=== PATIENT | male | born 1950 | race African-American/Black ===

== ENCOUNTER 2016-11-27 11:17 | Outpatient (CLI) | payer OTHER ==
[~2016-11-27] VITALS: Ht 177.8 cm; Wt 62.7 kg
--- NOTE | ~2016-11-27 | HEMODYNAMI ---
PATIENT:MOHINI TAVERAS MEDICAL RECORD: [id number] : 50 LOCATION:[facility] ADMISSION DATE: 11/27/16 Generatedon:11/27/201614:38 Patient name: MOHINI TAVERAS Patient #: [id number] SSN: [id number] : 1950 Date of study: 11/27/2016 Page: Of Hemodynamic Procedure Report Patient Data Patient Demographics Procedure consent was obtained First Name: MOHINI Gender: Male Last Name: DARCY : 1950 Middle Initial: YAMILETH Age: 66 year(s) Patient #: [id number] Race: Black SSN: [id number] Additional ID: [id number] Contact details [address]: [address] [place] [address] State: [place] City: [place] Zip code: [address] Past Medical History Allergies: No known allergies Admission Admission Data Admission Date: 11/27/2016 Admission Time: 11:17 Admit Source: Other Lab Results Lab Result Date: 11/27/2016 Lab Result Time: 12:00 Biochemistry Name Units Result Min Max BUN mg/dl 11 --(-*--)-- 7 18 Creatinine mg/dl 0.9 --(-*--)-- 0.6 1.3 CBC Name Units Result Min Max Hematocrit % 44.9 --(*---)-- 42 54 Hemoglobin g/dl 15.2 --(-*--)-- 13.5 17.5 Procedure Procedure Types Cath Procedure PCI Procedure Coronary Stent Initial Miscellaneous Procedures Moderate Sedation up to 15 minutes Procedure Description Procedure Date Procedure Date: 11/27/2016 Procedure Start Time: 14:22 Procedure End Time: 14:37 Procedure Staff Name Function Geovanny Mcintosh MD Performing Physician [place] García RT Scrub [place] RN Nurse Bashir Jacques RT Monitor Nathan Kignsley RN Security Guard Dispatcher Procedure Data Cath Procedure Fluoroscopy Diagnostic fluoroscopy Total fluoroscopy Time: 3.4 time: 3.4 min min Diagnostic fluoroscopy Total fluoroscopy dose: 182 dose: 182 mGy mGy Contrast Material Contrast Material Type Amount (ml) Isovue 300 56 Entry Location Entry Primary Successful Side Size Upsize Upsize Entry Closure Paige ccessful Closure Location (Fr) 1 (Fr) 2 (Fr) Remarks Device Remarks Radial Right 6 Fr Mechanical artery Short Compression Estimated blood loss: 10 ml Procedure Complications No complications Procedure Medications Medication Administration Route Dosage Oxygen NC 2 l/min Heparin Flush Bag added to field 2 bags (1000units/500ml NS) Plavix P.O. 75 mg 0.9% NaCl I.V. 100 ml/hr Radial Cocktail added to field 1 syringe (Verapomil 2mg/Nitro 400mcg/Heparin 1500units) Fentanyl I.V. 50 mcg Versed I.V. 1 mg Fentanyl I.V. 50 mcg Versed I.V. 1 mg Radial Cocktail I.A. 1 syringe (Verapomil 2mg/Nitro 400mcg/Heparin 1500units) Heparin Bolus I.V. 6000 units Hemodynamics Rest HGB: 15.2 (g/dl) Heart Rate: 67 (bpm) Snapshots Pre Cath Intra NCS Post Cath Vital Signs Time Heart Resp SPO2 etCO2 [id number] NIBP (mmHg) Rhythm Pain Sedation Rate (ipm) (%) (mmHg) (mmHg) Status Level (bpm) 14:07:28 65 17 100 0 0 129/84(105) NSR 0 (11) 10(A) , No pain 14:11:34 65 18 100 0 0 106/84(90) NSR 0 (11) 10(A) , No pain 14:15:36 62 17 99 0 0 110/74(86) NSR 0 (11) 10(A) , No pain 14:19:39 69 18 99 0 0 101/74(89) NSR 0 (11) 10(A) , No pain 14:23:39 68 17 99 0 0 97/74(87) NSR 0 (11) 9(A) , No pain 14:27:41 73 16 97 0 0 93/63(75) NSR 0 (11) 9(A) , No pain 14:31:42 70 17 97 0 0 97/57(77) NSR 0 (11) 9(A) , No pain 14:35:42 68 17 98 0 0 104/64(84) NSR 0 (11) 9(A) , No pain Medications Time Medication Route Dose Verified Delivered Reason Note s Effectiveness by by 14:02:43 Oxygen NC 2 l/min Nathan Evans Per physician Sancho Kingsley RN RN 14:02:52 Heparin Flush added 2 bags Nathan Evans used for Bag to Sancho Kingsley RN procedure (1000units/500ml field RN NS) 14:03:05 Plavix P.O. 75 mg Nathan Evans for Sancho Kingsley RN antiplatelet RN therapy 14:03:19 0.9% NaCl I.V. 100 Nathan Nathan Per physician ml/hr Sancho Kingsley RN RN 14:03:30 Radial Cocktail added 1 Nathan Evans used for (Verapomil to syringe Sancho Kingsley RN procedure 2mg/Nitro field RN 400mcg/Heparin 1500units) 14:20:26 Fentanyl I.V. 50 mcg Nathan Evans for sedation Sancho Kingsley RN RN 14:20:33 Versed I.V. 1 mg Nathan Evans for sedation Sancho Kingsley RN RN 14:22:47 Fentanyl I.V. 50 mcg Nathan Evans for sedation Sancho Kingsley RN RN 14:22:52 Versed I.V. 1 mg Nathan Evans for sedation Sancho Kingsley RN RN 14:24:13 Radial Cocktail I.A. 1 Nathan Geovanny for (Verapomil syringe Sancho Mcintosh MD vasodilation 2mg/Nitro RN 400mcg/Heparin 1500units) 14:26:16 Heparin Bolus I.V. 6000 Nathan Evans for units Sancho Kingsley RN anticoagulation driver recruiter Log Time Note 13:40:15 Nathan Kingsley RN sent for patient. Start room use. 13:49:44 Informed consent obtained and on chart 13:50:01 Admit Source: Other 13:50:21 Time tracking: Regular hours 13:50:25 Plan of Care:Hemodynamics will remain stable., Cardiac rhythm will remain stable., Comfort level will be maintained., Respiratory function will remain adequate., Patient/ family verbilizes understanding of procedure., Procedure tolerated without complication., Recovers from procedure without complications.. 13:50:30 H&P Date Dictated: 11/27/2016 Within 30 days and on chart., H&P Addendum completed by physician on day of procedure. (MUST COMPLETE FOR ALL OUTPATIENTS). 13:51:45 Lab Result : Creatinine 0.9 mg/dl ::45 Lab Result : BUN 11 mg/dl ::45 Lab Result : Hemoglobin 15.2 g/dl ::45 Lab Result : Hematocrit 44.9 % 13:51:47 Lab results completed and on chart. 13:51:54 Patient received from Pre/Post Procedure Room to CCL 1 Alert and oriented. Tansferred to table in Supine position. 13:51:55 Warm blankets applied, and juan hugger turned on for patient comfort. 13:51:56 Correct patient and procedure confirmed by team. 13:51:57 ECG and BP/O2 sat monitors applied to patient. 13:52:00 Pre-procedure instructions explained to patient. 13:52:00 Pre-op teaching completed and patient verbalized understanding. 13:52:01 Family in waiting room. 13:52:03 Patient NPO since Midnight. 13:52:09 Patient allergic to No known allergies 13:52:11 Is the patient allergic to Iodine/contrast media? No. 14:02:43 Oxygen 2 l/min NC was administered by Nathan Kingsley RN; Per physician; 14:02:52 Heparin Flush Bag (1000units/500ml NS) 2 bags added to field was administered by Nathan Kingsley RN; used for procedure; 14:03:05 Plavix 75 mg P.O. was administered by Nathan Kingsley RN; for antiplatelet therapy; 14:03:19 0.9% NaCl 100 ml/hr I.V. was administered by Nathan Kingsley RN; Per physician; 14:03:30 Radial Cocktail (Verapomil 2mg/Nitro 400mcg/Heparin 1500units) 1 syringe added to field was administered by Nathan Kingsley RN; used for procedure; 14:04:22 Is patient on blood thinner?Yes 14:04:26 ACC The patient was administered the following blood thiners within the last 24 hours: ACCPlavix 14:04:55 Patient diabetic? No. 14:04:57 Previous problem with sedation/anesthesia? No ? 14:04:59 Snore? Yes 14:05:00 Sleep apnea? No 14:05:00 Deviated septum? No 14:05:01 Opens mouth fully? Yes 14:05:02 Sticks out tongue? Yes 14:05:03 Airway obstruction? No ? 14:05:05 Dentures? No ? 14:05:08 Modified Marquez's test Ulnar < 7 seconds 14:05:11 Patient pain scale 0/10 ?. 14:05:21 IV patent on arrival in left wrist with 0.9% NaCl at [facility]. 14:05:29 Right Radial & Right Groin area was prepped with chlora-prep and draped in sterile fashion 14:05:30 Alarms reviewed by R. N. 14:05:30 Sharps counted by scrub and verified by R.N. 14:05:33 Use device set Radial PCI 14:05:34 St Colton 260cm J .035 wire opened to sterile field. 14:05:35 MBrace Wrist Support opened to sterile field. 14:05:35 Tegaderm 4 x 4 opened to sterile field. 14:05:36 Acist Manifold opened to sterile field. 14:05:37 Acist Syringe opened to sterile field. 14:05:38 Acist Hand Control opened to sterile field. 14:05:38 Bag Decanter opened to sterile field. 14:05:39 Medline Cath Pack opened to sterile field. 14:05:39 Merit BasixCompak Inflation Kit opened to sterile field. 14:05:39 Terumo 6Fr Slender Glidesheath opened to sterile field. 14:06:25 Vital chart was started 14:07:01 Baseline sample Acquired. 14:07:08 Rhythm: sinus rhythm 14:14:14 Zero performed for pressure channel P1 14:14:22 Zero performed for pressure channel P1 14:14:28 Zero performed for pressure channel P1 14:18:46 Physician arrived 14:18:47 --------ALL STOP TIME OUT------ 14:18:47 Final Timeout: patient, procedure, and site verified with staff and physician. All members of the team are in agreement. 14:18:49 Right Radial & Right Groin site verified by team. 14:18:52 Physical assessment completed. ASA score P 2 - A patient with mild systemic disease as per Geovanny Mcintosh MD. 14:18:55 Sedation plan: IV Moderate Sedation Versed, Fentanyl 14:20:26 Fentanyl 50 mcg I.V. was administered by Nathan Kingsley RN; for sedation; 14:20:33 Versed 1 mg I.V. was administered by Nathan Kingsley RN; for sedation; 14::22 Procedure started. 14:: Full Disclosure recording started 14:22:38 Local anesthetic to right radial artery with Lidocaine 2% by Geovanny Mcintosh MD.INITIAL ACCESS ONLY 14::47 Fentanyl 50 mcg I.V. was administered by Nathan Kingsely RN; for sedation; 14::52 Versed 1 mg I.V. was administered by Nathan Kingsley RN; for sedation; 14:23:46 A 6 Fr Short sheath was inserted into the Right Radial artery 14:24:13 Radial Cocktail (Verapomil 2mg/Nitro 400mcg/Heparin 1500units) 1 syringe I.A. was administered by Geovanny Mcintosh MD; for vasodilation; 14:24:20 Cordis 6FR XBLAD 3.5 guide catheter opened to sterile field. 14:25:04 6 Fr xblad 3.5 guide catheter was inserted over the wire 14:25:52 LCA angiography performed. 14:26:16 Heparin Bolus 6000 units I.V. was administered by Nathan Kingsley RN; for anticoagulation; 14:29:21 BMW wire advanced. 14:29:39 Wire advanced across lesion. 14:32:29 Inflation Number: 1 A Clean Filtration Technologytronic Integrity 3.0 X 26 stent was prepped and advanced across the Prox LAD. The stent was deployed at 14 ELENO for 0:10 (min:sec). 14:33:09 Stent catheter was removed intact over wire. 14:33:10 Wire removed. 14:33:10 Guide catheter removed. 14:33:17 Terumo TR Band Standard opened to sterile field. 14:33:57 Sheath removed intact; hemostasis achieved with Mechanical Compression to the Right Radial artery. 14:33:59 Procedure ended.(Physican Out) 14:34:08 Fluoroscopy time 03.40 minutes. 14:34:12 Flurop Dose total: 182 14:34:12 Fluoroscopy dose: 182 mGy 14:34:15 Contrast amount:Isovue 300 56ml. 14:34:16 Sharps counted by scrub and verified by R.N. 14:34:19 TR band inflated with 12cc of air. 14:34:20 Insertion/operative site no bleeding no hematoma. 14:34:28 Post right radial artery:stable, soft, clean and dry 14:34:29 Post Procedure Pulses reassessed and unchanged 14:34:31 Post-procedure physical assessment completed. ASA score P 2 - A patient with mild systemic disease as per Geovanny Mcintosh MD. 14:34:33 Post procedure rhythm: unchanged. 14:34:36 Estimated blood loss: 10 ml 14:34:38 Post procedure instruction explained to patient.Patient verbalizes understanding. 14:34:38 Patient needs reinforcement of post procedure teaching. 14:36:07 Webb BMW [place] 2 J-tip 300cm 0.014 guide wir opened to sterile field. 14:37:02 Procedure type changed to Cath procedure, PCI procedure, Coronary Stent Initial, Miscellaneous Procedures, Moderate Sedation up to 15 minutes 14:37:27 Procedure and supply charges have been captured, reviewed, submitted and are correct. 14:37:32 Procedure Complication : No complications 14:37:35 Vital chart was stopped 14:37:35 See physician's report for complete and final results. 14:37:36 Report given to Pre/Post Procedure Room. 14:37:38 Patient transfered to Pre/Post Procedure Room with Stretcher. 14:37:40 Procedure ended. 14:37:40 Full Disclosure recording stopped 14:38:06 End room use (Document Last) Intervention Summary Intervention Notes Time ActionType Lesion and Equipment Action# Pressure Duration Attributes Used 14:32:29 Place stent Prox LAD Medtronic 1 14 00:10 Integrity 3.0 X 26 stent Device Usage Item Name Manufacture Quantity Catalog Hospital Part Current Minimal Lot# / Number Charge Number Stock Stock Serial# Code St Colton St Colton 1 [id number] [id number] 127777 493958 30 260cm J .035 wire MBrace Advanced 1 140-0250-00 105169 35372 677814 5 Wrist Vascular Support Dynamics Tegaderm 4 3M 1 1626W 445492 291136 998656 5 x 4 Acist Acist 1 36269 782299 876726 048651 5 Manifold Medical Systems Inc Acist Acist 1 19337 714232 766873 986100 20 Syringe Medical Systems Inc Acist Hand Acist 1 00181 488359 776853 970421 5 Control Medical Systems Inc Bag Microtek 1 2001S 691405 93154 598484 5 Decanter Medical Inc. Medline Cardinal 1 [id number] 547879 35967 045887 5 [facility] Privileged World [employer] Club [facility] Merit 1 [id number] 879070 537028 226188 15 BasixCompak Medical Inflation Kit Terumo 6Fr Terumo 1 [id number] 478997 670839 535235 40 Slender Glidesheath Cordis 6FR Cardinal 1 [id number] 193120 462033 404120 10 XBLAD 3.5 Health guide catheter Medtronic Medtronic 1 [id number] 482120 033731 3 [id number] Integrity 3.0 X 26 stent Terumo TR Terumo 1 [id number] 633133 219012 822198 40 Band Standard Webb BMW Webb 1 [id number] 144429 575652 574308 5 [place] 2 Vascular J-tip 300cm 0.014 guide wir Signature Audit Corn Stage Time Signature Unsigned Intra-Procedure 11/27/2016 Bashir Jacques 2:38:26 PM RT(R) Signatures Monitor : Bashir Jacques RT Signature : Date : Time : [facility] [address] [place] [address]
--- NOTE | ~2016-11-27 | OP ---
PATIENT NAME: MOHINI TAVERAS MEDICAL RECORD: [id number] :50 LOCATION:D.CAT ADMISSION DATE: SURGEON: DEEPAK ALBRECHT M.D. DATE OF OPERATION: 11/27/2016 REFERRING PHYSICIAN: Dr. Boston Andres. PROCEDURES PERFORMED: 1. PTCA and stent placed to the LAD. INDICATION: A 66-year-old gentleman recently presents with angina. He underwent stenting of the right coronary artery. He returns today for completion of staged procedure to the LAD. EQUIPMENT USED: A 6-Ecuadorean XB LAD guide, BMW guidewire, 3.0 x 26 mm Integrity stent. DESCRIPTION OF INTERVENTION: A 6-Ecuadorean sheath was inserted in retrograde fashion in the right radial artery. Next, 100 units per kilogram of heparin was infused. A 6-Ecuadorean XB LAD guide was advanced and engaged in left main coronary artery. Injections revealed an ulcerated 90% stenosis in the mid LAD. At this point, a BMW guide wire was placed in the distal vessel. A 3.0 x 26 mm Integrity stent was placed across the stenosis and deployed at 14 atmospheres. Injection reveals stent to be widely patent with 0% residual stenosis. There is marked improvement in distal flow. At this point, the wire and guide were removed. IMPRESSION: Successful percutaneous transluminal coronary angioplasty and stent to the LAD with 0% residual stenosis. TRANSINT:[id number] Voice Confirmation ID: [id number] DOCUMENT ID: [id number] DEEPAK ALBRECHT M.D. CC: [id number] DICTATION DATE: 11/27/16 1439 DIRECTOR VISUAL: 11/27/16 2139 [facility] CLI 11/27/16 [place] [id number] [place] [id number]
[~2016-11-27 11:17] MED LIST: BAYER CHEWABLE81 MG PO; CATAPRES0.1 MG PO; FLOMAX0.4 MG PO; HALCION0.25 MG PO; LIPITOR10 MG PO; PLAVIX75 MG PO; PROAIR HFA8.5 GM INH; PROSCAR5 MG PO; PROTONIX40 MG PO; ULTRAM50 MG PO
[2016-11-27 11:48] VITALS: BP 131/85; Ht 177.8 cm; Wt 62.7 kg
[2016-11-27 12:44] LABS: BASOPHILS 0.7 % (0-2); EOSINOPHILS 1.6 % (0-7); HEMATOCRIT 44.9 % (42.0-54.0); HEMOGLOBIN 15.2 g/dL (13.5-17.5); IMMATURE GRANULOCYTES 0.2 % (0-5); LYMPHOCYTES 27.8 % (15-50); MCH 32.6 pg (26.0-34.0); MCHC 33.9 g/dL (31.0-37.0); MCV 96.4 fL (80.0-100.0); MEAN PLATELET VOLUME 10.3 fL (7.4-10.4); MONOCYTES 10.8 % (2-11); NEUTROPHILS 58.9 % (40-80); PLATELET COUNT 356 10x3/uL (130-400); RBC 4.66 10x6/uL (4.20-6.10); RDW 13.8 % (11.5-14.5); WBC 8.2 10x3/uL (4.8-10.8)
[2016-11-27 12:56] LABS: CALC OSMOLALITY 278 mosm/kg (275-300); CARBON DIOXIDE 24.4 mmol/L (21.0-32.0); CHLORIDE - SERUM 108 mmol/L (98-107); CREATININE - SERUM 0.9 mg/dL (0.6-1.3); GLUCOSE 79 mg/dL (74-106); POTASSIUM - SERUM 3.9 mmol/L (3.5-5.1); SODIUM 141 mmol/L (136-145); UREA NITROGEN 11 mg/dL (7-18); eGFR NON AFRICAN AMERICAN 90 mL/min (90-120)
--- NOTE | 2016-11-27 15:00 | NUR ---
TR BAND TO RIGHT WRIST- CDI NO BLEEDING AT SITE
--- NOTE | 2016-11-27 15:33 | NUR ---
CONTINUES TO REST, NO CHANGE IN RIGHT WRIST
--- NOTE | 2016-11-27 18:05 | NUR ---
2CC AIR OUT OF TR BAND- NO BLEEDING. RIGHT WRIST VERY TENDER
--- NOTE | 2016-11-27 18:20 | NUR ---
3CC AIR OUT OF TR BAND, NO HEMATOMA OR BLEEDING AT SITE, NO CHANGES
--- NOTE | 2016-11-27 18:50 | NUR ---
TR BAND OFF, BANDAID APPLIED, CONTINUES TO BE VERY TENDER- INSTRUCTED TO CALL DR ALBRECHT'S OFFICE IN THE MORNING IF NOT BETTER. UNDERSTOOD. IV D'C WITH CATH TIP INTACT, WRITTEN AND VERBAL INSTRUCTIONS GIVEN TO PT AND . D'C HOME
== END 2016-11-27 19:00 | disposition home or self-care (01) ==
LOC: D.CATH 11:17
PROVIDERS: Internal Medicine Cardiovascular Disease
DX: I25.119 Atherosclerotic heart disease of native coronary artery with unspecified angina pectoris (principal); Z95.5 Presence of coronary angioplasty implant and graft; Z01.812 Encounter for preprocedural laboratory examination

== ENCOUNTER → 2017-11-01 12:39 | Outpatient (CLI) | payer MEDICARE ==
[2016-11-27 11:48] VITALS: BMI 19.8
== END | disposition home or self-care (01) ==
LOC: D.CT 12:39
DX: R10.9 Unspecified abdominal pain (principal)

== ENCOUNTER → 2017-11-25 07:36 | Outpatient (CLI) | payer MEDICARE ==
[2016-11-27 11:48] VITALS: BMI 19.8
== END | disposition home or self-care (01) ==
LOC: D.US 11-22 08:30
DX: R10.9 Unspecified abdominal pain (principal)

== ENCOUNTER → 2017-12-16 08:46 | Outpatient (CLI) | payer MEDICARE ==
[2016-11-27 11:48] VITALS: BMI 19.8
== END | disposition home or self-care (01) ==
LOC: D.NM 12-12 08:30
DX: K83.8 Other specified diseases of biliary tract (principal)

== ENCOUNTER 2018-09-26 11:34 | Emergency (ER) | payer MEDICARE ==
[~2018-09-26] VITALS: Ht 177.8 cm; Wt 62.7 kg
[2018-09-26 11:39] VITALS: Ht 177.8 cm; Wt 62.7 kg
[2018-09-26] MEDS ORDERED: MIRAPEX0.25 MG PO (11:43)
[2018-09-26] MEDS ORDERED: AMBIEN10 MG PO (11:43)
[2018-09-26] MEDS ORDERED: MYSOLINE 50 MG50 MG PO (11:43)
[2018-09-26] MEDS ORDERED: IMITREX100 MG PO (11:44)
[2018-09-26] MEDS ORDERED: BENADRYL25 MG PO (11:44)
[2018-09-26] MEDS ORDERED: NIASPAN500 MG PO (11:45)
[2018-09-26] MEDS ORDERED: FERROUS SULFAT325 MG PO (11:45)
[2018-09-26] MEDS ORDERED: NEURONTIN800 MG PO (11:45)
[2018-09-26] MEDS ORDERED: FOLBIC RF TABL1 EACH PO (11:46)
[2018-09-26] MEDS ORDERED: MAGNESIUM OXID250 MG PO (11:46)
[2018-09-26] MEDS ORDERED: GALZIN50 MG PO (11:46)
[2018-09-26] MEDS ORDERED: VITAMIN E600 UNIT PO (11:47)
[2018-09-26] MEDS ORDERED: ASCORBIC ACID500 MG PO (11:47)
[2018-09-26] MEDS ORDERED: CENTRUM MEN'S1 EACH PO (11:47)
[2018-09-26 12:11] LABS: BASOPHILS 0.5 % (0-2); EOSINOPHILS 0.5 % (0-7); HEMATOCRIT 43.2 % (42.0-54.0); HEMOGLOBIN 15.2 g/dL (13.5-17.5); IMMATURE GRANULOCYTES 0.4 % (0-5); LYMPHOCYTES 14.8 % (15-50); MCH 32.3 pg (26.0-34.0); MCHC 35.2 g/dL (31.0-37.0); MCV 91.9 fL (80.0-100.0); MEAN PLATELET VOLUME 10.5 fL (7.4-10.4); MONOCYTES 8.7 % (2-11); NEUTROPHILS 75.1 % (40-80); PLATELET COUNT 396 10x3/uL (130-400); RDW 13.9 % (11.5-14.5); WBC 9.9 10x3/uL (4.8-10.8)
[2018-09-26 12:53] LABS: ALBUMIN 3.4 g/dL (3.4-5.0); ALKALINE PHOSPHATASE 77 U/L (46-116); ALT (SGPT) 57 U/L (10-68); BILIRUBIN - TOTAL 0.36 mg/dL (0.2-1.3); CALC OSMOLALITY 276 mosm/kg (275-300); CARBON DIOXIDE 28.2 mmol/L (21.0-32.0); CHLORIDE - SERUM 104 mmol/L (98-107); CREATININE - SERUM 0.9 mg/dL (0.6-1.3); GLUCOSE 94 mg/dL (74-106); POTASSIUM - SERUM 3.7 mmol/L (3.5-5.1); PROTEIN - SERUM 6.8 g/dL (6.4-8.2); SODIUM 140 mmol/L (136-145); UREA NITROGEN 7 mg/dL (7-18); eGFR NON AFRICAN AMERICAN 89 mL/min (90-120)
[2018-09-26 13:04] LABS: AMYLASE - SERUM 53 U/L (25-115); CKMB 6.8 U/L (0.0-3.6); CREATINE KINASE 282 UL (21-232); LIPASE 100 U/L (73-393); MAGNESIUM - SERUM 1.8 mg/dL (1.8-2.4)
[2018-09-26 13:06] LABS: TROPONIN-I < 0.017 ng/mL (0.000-0.060)
[2018-09-26 17:50] LABS: APPEARANCE CLEAR (CLEAR); BILIRUBIN NEGATIVE (NEGATIVE); COLOR YELLOW (YELLOW); GLUCOSE NEGATIVE (NEGATIVE); KETONE NEGATIVE (NEGATIVE); NITRITE NEGATIVE (NEGATIVE); PROTEIN NEGATIVE (NEGATIVE); UROBILINOGEN NORMAL (NORMAL)
[2018-09-26] MEDS ORDERED: BENTYL10 MG PO (19:04)
[2018-09-26 19:48] VITALS: BP 132/86
== END 2018-09-26 19:44 | disposition home or self-care (01) ==
LOC: D.ER 11:34
PROVIDERS: Family Medicine
DX: R10.9 Unspecified abdominal pain (principal); I25.10 Atherosclerotic heart disease of native coronary artery without angina pectoris

== ENCOUNTER → 2019-02-13 08:36 | Outpatient (CLI) | payer MEDICARE ==
[2018-09-26 11:39] VITALS: BMI 19.8
[~2019-02-13 08:36] MED LIST changes: +AMBIEN10 MG PO; +ASCORBIC ACID500 MG PO; +BENADRYL25 MG PO; +BENTYL10 MG PO; +CENTRUM MEN'S1 EACH PO; +FERROUS SULFAT325 MG PO; +FOLBIC RF TABL1 EACH PO; +GALZIN50 MG PO; +IMITREX100 MG PO; +MAGNESIUM OXID250 MG PO; +MIRAPEX0.25 MG PO; +MYSOLINE 50 MG50 MG PO; +NEURONTIN800 MG PO; +NIASPAN500 MG PO; +VITAMIN E600 UNIT PO
== END | disposition home or self-care (01) ==
LOC: D.US 02-11 08:30 → D.NM 02-11 09:00 → D.RAD 08:36 → D.US 09:00
PROVIDERS: ATTEND Internal Medicine Gastroenterology
DX: R10.13 Epigastric pain (principal)

== ENCOUNTER 2019-11-14 08:52 | Inpatient (IN) | payer MEDICARE ==
[2019-11-14] VITALS (49 sets, daily range): BP systolic 85–136; BP diastolic 54–96
[~2019-11-14] VITALS: Ht 177.8 cm; Wt 70.0 kg
--- NOTE | ~2019-11-14 | OP ---
PATIENT NAME: MOHINI TAVERAS MEDICAL RECORD: [id number] :50 LOCATION:D.CVI D.CV02 ADMISSION DATE:11/14/19 SURGEON: MO BARROSO MD DATE OF OPERATION: 11/24/2019 SURGEON: Mo Barroso MD ANESTHESIA: General endotracheal, Dr. Real. OPERATION PERFORMED: Repair of false aneurysm, left femoral artery. PREOPERATIVE DIAGNOSIS: False aneurysm, left common femoral artery. POSTOPERATIVE DIAGNOSIS: False aneurysm, left common femoral artery. INDICATION FOR OPERATION: Painful left false aneurysm. FINDINGS AT OPERATION: False aneurysm, left common femoral artery. ESTIMATED BLOOD LOSS: Less than 50 cc. DESCRIPTION OF PROCEDURE: After informed consent, adequate preoperative medication evaluation, the patient was brought to the operating room, placed on the table in the supine position. After induction of general endotracheal anesthesia and application of appropriate monitoring devices, the abdomen, left leg were prepped and draped in a sterile field, utilizing Betadine scrub, alcohol, and Betadine solution. A Betadine-impregnated drape was also used. An oblique incision was made over the inguinal ligament. Dissection carried down the fascia. Hemostasis was maintained with electrocautery. The common femoral artery was surrounded with vessel loops at the level of the inguinal ligament. Dissection was then carried inferiorly and the artery was dissected free of surrounding tissues. After controlling the branches, the false aneurysm was opened and dissected towards the artery. The artery was cleaned anteriorly exposing the puncture site. Digital pressure was held and utilizing a 6-0 Prolene suture, the artery was closed with a primary suture technique. Hemostasis was achieved. The wound was irrigated with copious amounts of antibiotic solution and normal saline. A #10 Markus-Nelson drain was left in the depths of the wound and brought out through the upper thigh. The wound was again irrigated. Instrument count and sponge count were correct times 2. Wound was closed in layers utilizing 2-0 Vicryl on the deep subcutaneous tissue, 2-0 Vicryl on superficial subcutaneous tissue and skin approximated with subcuticular 5-0 Monocryl. The patient had good distal pulses. Sterile dressings were applied. The patient tolerated the procedure well and was transferred to the CV ICU in satisfactory condition. TRANSINT:[id number] Voice Confirmation ID: [id number] DOCUMENT ID: [id number] OPERATIVE REPORT [id number] TAVERASMOHINI MO WEST MD CC: [id number] DICTATION DATE: 11/24/19 1129 SPANISH SPEAKING BABYSITTER: 11/24/19 1732 ADM [place] [id number] [place] [id number]
--- NOTE | ~2019-11-14 | HEMODYNAMI ---
PATIENT:MOHINI TAVERAS MEDICAL RECORD: [id number] : 50 [facility]CV[id number] ADMISSION DATE: 11/14/19 Generatedon:11/14/201910:30 Patient name: MOHINI TAVERAS Patient #: [id number] SSN: [id number] : 1950 Date of study: 11/14/2019 Page: Of Hemodynamic Procedure Report Patient Data Patient Demographics Procedure consent was obtained First Name: MOHINI Gender: Male Last Name: DARCY : 1950 Middle Initial: YAMILETH Age: 69 year(s) Patient #: [id number] Race: Black SSN: [id number] Additional ID: [id number] Contact details [address]: [address] [place] [address] State: [place] City: [place] Zip code: [address] Past Medical History Allergies: No known allergies Admission Admission Data Admission Date: 11/14/2019 Admission Time: 9:34 Room #: [facility] Lab Results Lab Result Date: 11/14/2019 Lab Result Time: 0:00 CBC Name Units Result Min Max Hematocrit % 46.6 --(-*--)-- 42 54 Hemoglobin g/dl 14.9 --(-*--)-- 13.5 17.5 Procedure Procedure Types Cath Procedure Diagnostic Procedure [facility] w/Coronaries PCI Procedure Coronary Stent Coronary Stent Initial Hemochron ACT Test Procedure Description Procedure Date Procedure Date: 11/14/2019 Procedure Start Time: 9:56 Procedure End Time: 10:28 Procedure Staff Name Function Geovanny Mcintosh MD Performing Physician Tosin Michael RN Nurse Tamara Marte RT Scrub Maryann Villalpando RT Monitor Procedure Data Cath Procedure Fluoroscopy Diagnostic fluoroscopy Total fluoroscopy Time: 5 time: 5 min min Diagnostic fluoroscopy Total fluoroscopy dose: 648 dose: 648 mGy mGy Contrast Material Contrast Material Type Amount (ml) Isovue 300 86 Entry Location Entry Primary Successful Side Size Upsize Upsize Entry Closure Succes sful Closure Location (Fr) 1 (Fr) 2 (Fr) Remarks Device Remarks Femoral Right 6 Fr Exoseal artery Short Estimated blood loss: 10 ml Diagnostic catheters Device Type Used For End Catheter Placement MULTIPACK JL 4.0 5Fr Procedure catheter MULTIPACK 3DRC 5Fr Procedure catheter Procedure Complications No complications Procedure Medications Medication Administration Route Dosage 0.9% NaCl I.V. Oxygen 100 Lidocaine 2% added to field 20 Heparin Flush Bag added to field 2 bags (1000units/500ml NS) Diprivan 1% I.V. 40 mcg/kg/min (Propofol) Heparin Bolus I.V. 7500 units Dopamine I.V. drip 5 mcg/kg/min (400mg/250ml D5W) Nitroglycerin IC/IA I.C. 50 mcg Plavix 600 mg Hemodynamics Rest HGB: 14.9 (g/dl) Heart Rate: 93 (bpm) Pressure Samples Time Site Value (mmHg) Purpose Heart Use Rate(bpm) 10:05 LV 77/7,14 Snapshot 48 10:06 LV 75/7,12 Snapshot 62 Gradients Valve Time Site Site Mean SEP/DFP Peak To Heart Use 1 2 (mmHg) (sec/min) Peak Rate (mmHg) (bpm) Aortic 10:06 LV AO 95 Snapshots Pre Cath Intra NCS Post Cath Vital Signs Time Heart Resp SPO2 etCO2 NIBP Rhythm Pain Sedation Rate (ipm) (%) (mmHg) (mmHg) Status Level (bpm) 9:45:30 94 20 99 0 75/51(62) NSR 0 (11) 3(A) , No pain 9:49:32 82 20 98 0 79/56(69) NSR 0 (11) 3(A) , No pain 9:53:36 100 19 98 0 79/54(62) NSR 0 (11) 3(A) , No pain 9:57:42 98 19 99 0 79/52(63) NSR 0 (11) 3(A) , No pain 10:01:53 80 20 100 0 71/44(63) NSR 0 (11) 3(A) , No pain 10:05:59 94 19 100 0 76/48(58) NSR 0 (11) 3(A) , No pain 10:10:01 93 18 100 0 75/54(61) NSR 0 (11) 3(A) , No pain 10:14:07 91 20 99 0 81/49(70) NSR 0 (11) 3(A) , No pain 10:18:13 91 23 100 0 74/50(64) NSR 0 (11) 3(A) , No pain 10:22:12 90 19 100 0 77/54(65) NSR 0 (11) 3(A) , No pain 10:26:10 89 19 0 80/56(69) NSR 0 (11) 3(A) , No pain Medications Time Medication Route Dose Verified Delivered Reason Notes Effectiveness by by 9:44:30 0.9% NaCl I.V. kvo ml/hr Geovanny Tosin used for Arnaldo Michael line tender 9:44:48 Oxygen vent 100% FiO2 Geovanny Tosin for low 02 sats Arnaldo Michael RN 9:44:54 Lidocaine 2% added 20ml vial Geovanny Geovanny for local to Arnaldo Mcintosh MD anesthetic field 9:44:57 Heparin Flush added 2 bags Geovanny Geovanny used for Bag to Arnaldo Mcintosh MD procedure (1000units/500ml field NS) 9:45:01 Diprivan 1% I.V. 40mcg/kg/min Geovanny Tosin for sedation infusing (Propofol) Arnaldo Michael upon RN arrival to 10:09:26 Heparin Bolus I.V. 7500 units Geovanny Tosin for verified Arnaldo Michael anticoagulation with Dr. DEMIAN Mcintosh 10:16:29 Dopamine I.V. 5 mcg/kg/min Geovanny Tosin Per physician (400mg/250ml drip Arnaldo Michael D5W) RN 10:17:32 Nitroglycerin I.C. 50 mcg Geovanny Geovanny for IC/IA Arnaldo Mcintosh MD vasodilation 10:18:56 Plavix NGT 600 mg Geovanny Tosin for Arnaldo Michael antiplatelet RN therapy Procedure Log Time Note 9:26:01 Informed consent obtained and on chart 9:26:34 Procedure Status Elective Heart Cath (OP). 9:26:35 Time tracking: Regular hours (M-F 7:00 - 5:00) 9:26:39 Plan of Care:Hemodynamics will remain stable., Cardiac rhythm will remain stable., Comfort level will be maintained., Respiratory function will remain adequate., Patient/ family verbilizes understanding of procedure., Procedure tolerated without complication., Recovers from procedure without complications.. 9:26:41 Tosin Michael RN sent for patient. Start room use. 9:26:43 H&P Date Dictated: 11/14/2019 ER History on chart.. 9:44:21 Vital chart was started 9:44:30 0.9% NaCl kvo ml/hr I.V. was administered by Tosin Michael RN; used for procedure; Verbal order read back and verified. 9:44:48 Oxygen 100% FiO2 vent was administered by Tosin Michael RN; for low 02 sats; Verbal order read back and verified. 9:44:54 Lidocaine 2% 20ml vial added to field was administered by Geovanny Mcintosh MD; for local anesthetic; Verbal order read back and verified. 9:44:57 Heparin Flush Bag (1000units/500ml NS) 2 bags added to field was administered by Geovanny Mcintosh MD; used for procedure; Verbal order read back and verified. 9:45:01 Diprivan 1% (Propofol) 40mcg/kg/min I.V. was administered by Tosin Michael RN; for sedation; infusing upon arrival to Verbal order read back and verified. 9:45:02 Patient received from ED to CCL 1 On ventilator. Tansferred to table in Supine position. 9:45:03 Warm blankets applied, and juan hugger turned on for patient comfort. 9:45:03 Correct patient and procedure confirmed by team. 9:45:04 ECG and BP/O2 sat monitors applied to patient. 9:45:06 Baseline sample Acquired. 9:45:09 Full Disclosure recording started 9:45:15 Rhythm: sinus rhythm 9:45:17 Pre-procedure instructions explained to patient. 9:45:17 Pre-op teaching completed and patient verbalized understanding. 9:45:18 Family unavailable. 9:45:27 Patient allergic to No known allergies 9:45:29 Is patient on blood thinner?Unknown 9:45:31 Patient diabetic? Unknown. 9:45:34 Previous problem with sedation/anesthesia? Unknown ? 9:45:36 Snore? Unknown 9:45:37 Sleep apnea? Unknown 9:45:38 Deviated septum? Unknown 9:45:39 Opens mouth fully? Unknown 9:45:40 Sticks out tongue? Unknown 9:45:42 Airway obstruction? Unknown ? 9:45:44 Dentures? Unknown ? 9:45:48 Pre procedure: left dorsailis pedis pulse 1+ Palpable, but thready & weak; easily obliterated 9:47:34 Pt arrives to on 100% FiO2 via portable ventilator. Pt sedated w/ Propofol drip infusing @ 40mcg/kg/min via IV. Pt not responsive to stimuli. BP 75/51 (62). ROLAN EtCO2 d/t ventilator. 9:48:07 Lab Result : Hemoglobin 14.9 g/dl 9:48:07 Lab Result : Hematocrit 46.6 % 9:48:15 Lab results completed and on chart. 9:48:23 LEFT GROIN PREPPED DUE TO URINARY CATHETER ON RIGHT THIGH. 9:48:24 Left groin area was prepped with chlora-prep and draped in sterile fashion 9:48:25 Alarms reviewed by R. N. 9:48:25 Sharps counted by scrub and verified by R.N. 9:48:32 --------ALL STOP TIME OUT------ 9:48:32 Final Timeout: patient, procedure, and site verified with staff and physician. All members of the team are in agreement. 9:48:33 Left groin site verified by team. 9:48:36 Fire Safety Assessment: A--An alcohol-based skin anteseptic being used preoperatively., C--Open oxygen or nitrous oxide is being used., D--An ESU, laser, or fiber-optic light is being used. 9:48:39 Physical assessment completed. ASA score P 4 - A patient with severe systemic disease that is a constant threat to life as per Geovanny Mcintosh MD. 9:48:58 3a) 45-59 Moderately reduced kidney function. 9:49:09 Maximum allowable contrast dose (3.7 X eGFR X 0.75)161 ml. 9:49:15 Sedation plan: IV Moderate Sedation Medication:Propofol 9:50:49 Use device set Femoral Dx 9:50:50 ACIST Syringe (73159) opened to sterile field. 9:50:51 Bag Decanter () opened to sterile field. 9:50:52 ACIST Hand Control (77669) opened to sterile field. 9:50:52 ACIST Manifold (41855) opened to sterile field. 9:50:53 Tegaderm 4 x 4 (1626W) opened to sterile field. 9:50:55 Medline Cath Pack ([id number]) opened to sterile field. 9:50:56 DIAGNOSTIC Multipack 5Fr catheter set (ZV6075) opened to sterile field. 9:50:56 EMERALD Guide Wire (502-763) opened to sterile field. 9:51:02 SHEATH 6FR [place] (TTE894) opened to sterile field. 9:51:15 BMW 300cm Straight [place] 2 wire ([id number]) opened to sterile field. 9:51:15 INFLATOR Merit BasixCompak (TK8548) opened to sterile field. 9:51:15 TUBING High Pressure Extension Tubing (Arnaldo) ([id number]) opened to sterile field. 9:56:20 Procedure started. 9:56:22 Zero performed for pressure channel P1 9:56:33 Local anesthetic to left femerol artery with Lidocaine 2% by Geovanny Mcintosh MD.INITIAL ACCESS ONLY 9:58:07 A 6 Fr Short sheath was inserted into the Right Femoral artery 9:59:08 A MULTIPACK JL 4.0 5Fr catheter was advanced over the wire and used for Procedure. 10:00:46 LCA angiography performed. 10:00:47 Catheter exchanged over wire. 10:04:28 A MULTIPACK 3DRC 5Fr catheter was advanced over the wire and used for Procedure. 10:04:32 RCA angiography performed. 10:04:33 Catheter exchanged over wire. 10:05:58 LV gram done using SEQUEIRA 10:06:06 Injector settings: Ml/sec: 10, Volume: 20, 10:06:07 LV hemodynamics recorded. 10:06:44 EF : 55 % 10:06:46 Catheter exchanged over wire. 10:06:52 GUIDE 6FR XBLAD 3.5 catheter ([id number]) opened to sterile field. 10:08:11 Pre PCI Site: [place] L[place] has 80% stenosis. 10:08:16 6 Fr XBLAD 3.5 guide catheter was inserted over the wire 10:09:26 Heparin Bolus 7500 units I.V. was administered by Tosin Michael RN; for anticoagulation; verified with Dr. Mcintosh Verbal order read back and verified. 10:10:23 BMW 300 wire advanced. 10:12:00 Wire advanced across lesion. 10:12:01 Inflate balloon Inflation number: 1 A EUPHORA 3.0 x 20 Balloon ([id number]) was prepped and advanced across the Mid LAD , then inflated to 12 ELENO for 0:00 (min:sec) . 10:12:28 Inflation number: 2 The EUPHORA 3.0 x 20 Balloon ([id number]) was reinflated across the Mid LAD , to 13 ELENO for 0:00 (min:sec) . 10:13:54 Inflation number: 3 The EUPHORA 3.0 x 20 Balloon ([id number]) was reinflated across the Mid LAD , to 12 ELENO for 0:00 (min:sec) . 10:14:14 Balloon removed over the wire. 10:16:29 Dopamine (400mg/250ml D5W) 5 mcg/kg/min I.V. drip was administered by Tosin Michael RN; Per physician; Verbal order read back and verified. 10:17:32 Nitroglycerin IC/IA 50 mcg I.C. was administered by Geovanny Mcintosh MD; for vasodilation; Verbal order read back and verified. 10:18:01 Inflation number: 4 The EUPHORA 3.0 x 20 Balloon ([id number]) was reinflated across the Mid LAD , to 14 ELENO for 0:00 (min:sec) . 10:18:19 Balloon removed over the wire. 10:18:19 Wire removed. 10:18:20 Guide catheter removed. 10:18:56 Plavix 600 mg NGT was administered by Tosin Michael RN; for antiplatelet therapy; Verbal order read back and verified. 10:19:29 EXOSEAL 6Fr (EX600) opened to sterile field. 10:20:37 Sheath removed intact; hemostasis achieved with Exoseal to the Right Femoral artery. 10:20:39 Procedure ended.(Physican Out) 10:20:47 Fluoroscopy time 05.00 minutes. 10:20:51 Fluoroscopy dose: 648 mGy 10:20:51 Flurop Dose total: 648 10:21:23 Dose Area Product 46771 mGy/cm. 10:21:26 Contrast amount:Isovue 300 86ml. 10:21:30 Maximum allowable dose exceeded? No. 10:21:30 Sharps counted by scrub and verified by R.N. 10:21:34 Post-op/insertion site Left Femoral artery dressed using a 4 x 4 and Tegaderm. 10::41 Post-procedure physical assessment completed. ASA score P 4 - A patient with severe systemic disease that is a constant threat to life as per Geovanny Mcintosh MD. 10:21:44 Post procedure rhythm: unchanged. 10::48 Estimated blood loss: 10 ml 10::49 Post procedure instruction explained to patient.Patient verbalizes understanding. 10::49 Patient needs reinforcement of post procedure teaching. 10:22:13 Procedure type changed to Cath procedure, Diagnostic procedure, LHC, LHC w/Coronaries, PCI procedure, Coronary Stent, Coronary Stent Initial, Hemochron ACT Test 10:: ACT drawn and resulted at >400- out of range seconds. (normal therapeutic range 180-240 seconds). 10:24:51 Procedure and supply charges have been captured, reviewed, submitted and are correct. 10:24:56 Procedure Complication : No complications 10:25:00 [facility] Findings: MVD- PCI performed (see procedure note) 10:25:02 Operative report dictated upon procedure completion. 10:25:02 See physician's report for complete and final results. 10:25:05 Report given to CVICU. 10:25:08 Patient transfered to CVICU with Bed. 10:25:13 ACC-PCI Only Patient was given prescriptions, or instructed by Geovanny Mcintosh MD to start/continue the following medications upon discharge: Plavix 10:: Vital chart was stopped ::23 Procedure ended. :: Full Disclosure recording stopped 10::30 End room use (Document Last) Intervention Summary Intervention Notes Time ActionType Lesion and Equipment Action# Pressure Duration Attributes Used 10:12:01 Inflate Mid LAD EUPHORA 1 12 00:00 balloon 3.0 x 20 Balloon ([id number]) 10:12:28 Reinflate Mid LAD EUPHORA 2 13 00:00 balloon 3.0 x 20 Balloon ([id number]) 10:13:54 Reinflate Mid LAD EUPHORA 3 12 00:00 balloon 3.0 x 20 Balloon ([id number]) 10:18:01 Reinflate Mid LAD EUPHORA 4 14 00:00 balloon 3.0 x 20 Balloon ([id number]) Device Usage Item Name Manufacture Quantity Catalog Hospital Part Current Minimal L ot# / Number Charge Number Stock Stock Serial# Code ACIST Acist 1 45848 910844 957812 772939 20 Syringe Medical (29307) Systems Inc Bag Microtek 1 2001S 660819 71947 663433 5 Decanter Medical Inc. (2001S) ACIST Hand Acist 1 77462 281658 922583 729557 5 Control Medical (36101) Systems Inc ACIST Acist 1 04516 692586 762033 192979 5 Manifold Medical (11282) Systems Inc Tegaderm 4 3M 1 1626W 691345 275412 118776 5 x 4 (1626W) Medline Medline 1 [id number] 506676 77711 263907 5 Cath Pack ([id number]) DIAGNOSTIC Cardinal 1 YP8709 426990 07227 307329 30 Multipack Health 5Fr catheter set (QW1799) EMERALD Cardinal 1 502-455 678381 711939 600747 5 Guide Wire Health (502-455) SHEATH 6FR Terumo 1 FAR641 343456 271550 932150 40 [place] (RYD970) BMW 300cm Webb 1 1471694 671142 237462 450874 5 Straight Vascular [place] 2 wire (9671648) INFLATOR Merit 1 NV1496 531947 411915 283532 15 Merit Medical BasixCompak (LN9178) TUBING High Merit 1 UL0613A 534980 16519 134387 10 Pressure Medical Extension Tubing (Mcintosh) (AR1473H) MULTIPACK Cardinal 1 291778 5 JL 4.0 5Fr Health catheter MULTIPACK Cardinal 1 500104 5 3DRC 5Fr Health catheter GUIDE 6FR Cardinal 1 [id number] 790755 911129 257634 10 XBLAD 3.5 Health catheter (60965669) EUPHORA 3.0 Medtronic 1 [id number] 582001 432079 850314 5 2 33031035 x 20 Balloon (CDC0452B) EXOSEAL 6Fr Cardinal 1 EX600 539904 445757 879418 10 (EX600) Health Signature Audit Dugger Stage Time Signature Unsigned Intra-Procedure 11/14/2019 Tamara Marte 10:29:27 AM RT(R) Intra-Procedure 11/14/2019 Tosin Michael 10:30:21 AM RN Intra-Procedure 11/14/2019 Geovanny Mcintosh MD 10:30:40 AM [facility] [address] [place] [address]
[2019-11-14] MEDS ORDERED: MORPHINE IMMEDI15 MG PO (08:59)
[2019-11-14] MEDS ORDERED: LINZESS72 MCG PO (09:00)
[2019-11-14] MEDS ORDERED: MYSOLINE 50 MG50 MG PO (09:00)
[2019-11-14] MEDS ORDERED: KETAMINE NASAL SPRAY (09:01)
[2019-11-14] MEDS ORDERED: BREO ELLIPTA 11 EACH INH (09:01)
[2019-11-14] MEDS ORDERED: IRON (09:02)
[2019-11-14] MEDS ORDERED: MEGACE400 MG/10 PO (09:02)
[2019-11-14] MEDS ORDERED: B12 1000MCG (09:03)
[2019-11-14] MEDS ORDERED: VITAMIN E 450 MG (09:03)
[2019-11-14] MEDS ORDERED: ASCORBIC ACID500 MG PO (09:05)
[2019-11-14] MEDS ORDERED: BENADRYL25 MG PO (09:06)
[2019-11-14 09:16] LABS: HEMATOCRIT 46.6 % (42.0-54.0); HEMOGLOBIN 14.9 g/dL (13.5-17.5); MCH 32.5 pg (26.0-34.0); MCV 101.5 fL (80.0-100.0); MEAN PLATELET VOLUME 10.8 fL (7.4-10.4); PLATELET COUNT 321 10x3/uL (130-400); RBC 4.59 10x6/uL (4.20-6.10); RDW 15.5 % (11.5-14.5); WBC 16.5 10x3/uL (4.8-10.8)
[2019-11-14 09:19] LABS: APTT 38.6 SECONDS (22.8-39.4); INR 1.27 (0.85-1.17); PROTIME 15.8 SECONDS (11.6-15.0)
--- NOTE | 2019-11-14 09:31 | NUR ---
PT LEFT ED AT THIS TIME VIA STRETCHER TO VACCINATOR.
[2019-11-14 09:42] LABS: ALBUMIN 2.9 g/dL (3.4-5.0); ALKALINE PHOSPHATASE 99 U/L (30-120); ALT (SGPT) 71 U/L (10-68); BILIRUBIN - TOTAL 0.47 mg/dL (0.2-1.3); CALC OSMOLALITY 282 mosm/kg (275-300); CALCIUM 8.5 mg/dL (8.5-10.1); CARBON DIOXIDE 16.9 mmol/L (21.0-32.0); CHLORIDE - SERUM 104 mmol/L (98-107); CKMB 3.1 U/L (0.0-3.6); CREATINE KINASE 372 UL (21-232); CREATININE - SERUM 1.3 mg/dL (0.6-1.3); MAGNESIUM - SERUM 2.4 mg/dL (1.8-2.4); POTASSIUM - SERUM 5.6 mmol/L (3.5-5.1); PROTEIN - SERUM 6.3 g/dL (6.4-8.2); SODIUM 139 mmol/L (136-145); TROPONIN-I 0.045 ng/mL (0.000-0.060); UREA NITROGEN 7 mg/dL (7-18); eGFR NON AFRICAN AMERICAN 58 mL/min (90-120)
[2019-11-14 09:45] LABS: GLUCOSE 233 mg/dL (74-106)
[2019-11-14 10:42] LABS: EOSINOPHILS 1 % (0-7); LYMPHOCYTES 34 % (15-50); MONOCYTES 1 % (2-11); NEUTROPHILS 64 % (40-80); PLATELET ESTIMATE NORMAL
[2019-11-14 13:19] LABS: HEMATOCRIT 43.2 % (42.0-54.0); HEMOGLOBIN 14.3 g/dL (13.5-17.5); MCH 32.1 pg (26.0-34.0); MCHC 33.1 g/dL (31.0-37.0); MCV 97.1 fL (80.0-100.0); MEAN PLATELET VOLUME 10.7 fL (7.4-10.4); RBC 4.45 10x6/uL (4.20-6.10); RDW 15.1 % (11.5-14.5); WBC 21.4 10x3/uL (4.8-10.8)
[2019-11-14] MEDS ORDERED: FLOMAX0.4 MG PO (13:43)
[2019-11-14 13:49] LABS: CALCIUM 8.8 mg/dL (8.5-10.1); CHOL - HDL RATIO 2.7 ratio (2.3-4.9); CREATININE - SERUM 1.1 mg/dL (0.6-1.3); LDL-HDL RATIO 1.6 ratio (1.5-3.5)
[2019-11-14 13:51] LABS: ANION GAP 11.5 mmol/L (8-16); CARBON DIOXIDE 27.5 mmol/L (21.0-32.0)
[2019-11-14] MEDS ORDERED: IMITREX100 MG PO (14:19)
--- NOTE | 2019-11-14 15:30 | NUR ---
1129-RECIEVED PT VIA BED ACCOMPANIED BY TELECOMMUNICATIONS TECHNICIAN TEAM-ON PORTABLE VENTILATOR-NON RESPONSIVE-L PERIPHERAL IV INFUSING DOPAMINE AT 5MCG/KG/MIN-NIBP 81/19-VVSM-19-DOPAMINE INCREASED TO 7.5MCG-PLACED ON PORTABLE MONITOR AND TRANSPORTED TO CT SCAN WITH RN RESP AND RADIOLOGY FOR STAT ORDERED-
[2019-11-14 17:14] LABS: BACTERIA FEW /hpf (NEGATIVE); BILIRUBIN NEGATIVE (NEGATIVE); EPITHELIAL CELLS OCC /hpf (0-5); GLUCOSE NEGATIVE (NEGATIVE); KETONE NEGATIVE (NEGATIVE); NITRITE NEGATIVE (NEGATIVE); RED CELLS - URINE 25-50 /hpf (0-5); UROBILINOGEN NORMAL (NORMAL); WHITE CELLS - URINE OCC /hpf (NEGATIVE)
--- NOTE | 2019-11-14 19:00 | NUR ---
Patient assessment completed this time, no changes noted from nurse report. Patient is sedated on ventilator support, patient will open eyes and respond to light stimulation. Vital signs remained stable on Levophed drip. We will continue to monitor and titrate sedation and Levophed as needed.
--- NOTE | 2019-11-14 21:00 | NUR ---
Patient remains on sedation and ventilator support at this time, vital signs stable on Levophed drip, will continue to titrate and monitor for changes and adjust as needed.
--- NOTE | 2019-11-14 23:00 | NUR ---
PT REASSESSMENT COMPLETED AT THIS TIME, NO CHANGES NOTED FROM PREVIOUS EXAM, VSS
[2019-11-15] VITALS (48 sets, daily range): BP systolic 86–132; BP diastolic 60–92
--- NOTE | 2019-11-15 01:00 | NUR ---
PT ON VENT SUPPORT WITH SEDATION, VSS ON LEVOPHED DRIP, TITRATING DOWN TOLERATED
--- NOTE | 2019-11-15 03:00 | NUR ---
PT REASSESSMENT COMPLETED AT THIS TIME, NO CHANGES NOTED FROM PREVIOUS EXAM, VSS
--- NOTE | 2019-11-15 05:20 | NUR ---
PT GIVEN CHG BATH AND COMPLETED LINEN CHANGED AT THIS TIME
[2019-11-15 06:15] LABS: HEMATOCRIT 42.6 % (42.0-54.0); HEMOGLOBIN 14.3 g/dL (13.5-17.5); MCH 32.5 pg (26.0-34.0); MCHC 33.6 g/dL (31.0-37.0); MCV 96.8 fL (80.0-100.0); MEAN PLATELET VOLUME 10.6 fL (7.4-10.4); PLATELET COUNT 332 10x3/uL (130-400); RDW 15.5 % (11.5-14.5); WBC 23.2 10x3/uL (4.8-10.8)
[2019-11-15 06:55] LABS: ALBUMIN 2.9 g/dL (3.4-5.0); ALKALINE PHOSPHATASE 116 U/L (30-120); ALT (SGPT) 92 U/L (10-68); BILIRUBIN - TOTAL 0.57 mg/dL (0.2-1.3); CALCIUM 8.5 mg/dL (8.5-10.1); CARBON DIOXIDE 23.5 mmol/L (21.0-32.0); CHLORIDE - SERUM 107 mmol/L (98-107); MAGNESIUM - SERUM 2.1 mg/dL (1.8-2.4); PHOSPHOROUS 4.7 mg/dL (2.5-4.9); POTASSIUM - SERUM 4.6 mmol/L (3.5-5.1); PROTEIN - SERUM 6.1 g/dL (6.4-8.2); SODIUM 142 mmol/L (136-145); UREA NITROGEN 13 mg/dL (7-18); eGFR NON AFRICAN AMERICAN 79 mL/min (90-120)
[2019-11-15 07:01] LABS: CALC OSMOLALITY 283 mosm/kg (275-300); GLUCOSE 117 mg/dL (74-106)
[2019-11-15 09:13] LABS: LYMPHOCYTES 7 % (15-50); MONOCYTES 10 % (2-11); NEUTROPHILS 81 % (40-80); PLATELET ESTIMATE NORMAL; ROULEAUX OCC
--- NOTE | 2019-11-15 18:10 | NUR ---
0700-RECIEVED PER FLOW SHEET- AT BEDSIDE-DIPRIVAN GTT INFUSING FOR DENIS 2 LEVOPHED TITRATED OFF PER PARAMETER-PENDING PTT RESULT 0900 DR GIVENS AT BEDSIDE -STATUS REPORT AND VERBAL DIRECTION GIVEN-DIPRIVAN TURNED OFF FOR CPAP TRIALS-RT NOTIFIED-DR ALBRECHT AT BEDSIDE- PRESENT 1030-PT AWAKE AND SVERELY AGITATED ATTEMPTING TO PULL OUT ET TUBE- AT BEDSIDE-RESTRAINTS REMAIN IN PLACE-LAB AT BEDSIDE FOR PTT DRAW-DR NUGENT PRESENT AND REVIEWED PLANNED COURSE OF TREATMENT FOR DAY- 1130-EXTUBATED AND PLACE ON 4L AIR TWIST OPERATOR-PT GRABBING R SHOULDER CRYING AND CRINGING -CANT STAND PAIN-DR NUGENT NOTIFIED- REVIEWED PT HOME PAIN MANAGEMENT ORDERS FROM PAIN CLINIC-ORDER RECIEVED--1230 MORPHINE 15MG PO GIVEN -PT CONTINUED WITH R SHOULDER/CLAVICLE/R ARM PAIN-"NEVER HAD BEFORE"-REMOVED R AC 20G AND CHANGED IV DRIPS TO L ARM IV ACCESS SITE-REMOVED NIBP CUFF AND PLACED ON L ARM 1300-CALLED INTO ROOM BY -STATED NOW LEFT ARM CAUSING SEVERE EXCRUCIATING PAIN-CORRELATED WITH AUTOMATIC NIBP CHECK-EXPLAINED TO PT REQUIRED FOR MONITORING-NOT ABLE TO UTILIZE LEGS -STILL SUSPECT OF DVT-AND UNSAFE NOT TO MONITOR BP-COMPROMISED TO Q1H 1315-CALLED INTO RM-PT VOCALIZING SEVERE PAIN RETURNED TO R CLAVICLE BASE-SWALLOWING IT "HURTS"-REVIEWED SERIOUS SERIES OF EVENTS THAT LED TO HOSPITALIZATION-CONTINUED TO STRESS ICE CHIPS FOR THROAT-OFFERED AND BROUGHT POPSICLE TO BEDSIDE-DR NUGENT NOTIFIED OF PT DISTRESS(LOUD)-ORDER RECIEVED 1445 PORT XRAY DONE OF R SHOULDER-2 VIEW 1530-PT APPEARS TO BE RESTING AT THIS TIME 1600- LEFT UNIT-PLAN TO RETURN FOR 1999H VISIT 1815-U/S AT BEDSIDE PT CALM AND COOPERATIVE
[2019-11-16] VITALS (24 sets, daily range): BP systolic 121–136; BP diastolic 71–88
[2019-11-16 06:05] LABS: ALBUMIN 2.8 g/dL (3.4-5.0); ANION GAP 8.7 mmol/L (8-16); BILIRUBIN - TOTAL 0.5 mg/dL (0.2-1.3); CALCIUM 8.8 mg/dL (8.5-10.1); CARBON DIOXIDE 28.5 mmol/L (21.0-32.0); CREATININE - SERUM 1.1 mg/dL (0.6-1.3); MAGNESIUM - SERUM 2.2 mg/dL (1.8-2.4); POTASSIUM - SERUM 4.2 mmol/L (3.5-5.1); PROTEIN - SERUM 6.2 g/dL (6.4-8.2)
[2019-11-16 06:18] LABS: PHOSPHOROUS 3.2 mg/dL (2.5-4.9)
[2019-11-16 06:28] LABS: BASOPHILS 0.1 % (0-2); EOSINOPHILS 0 % (0-7); HEMOGLOBIN 13.2 g/dL (13.5-17.5); IMMATURE GRANULOCYTES 0.3 % (0-5); LYMPHOCYTES 10.4 % (15-50); MCH 32.2 pg (26.0-34.0); MCV 97.6 fL (80.0-100.0); MEAN PLATELET VOLUME 10.7 fL (7.4-10.4); MONOCYTES 9.5 % (2-11); NEUTROPHILS 79.7 % (40-80); PLATELET COUNT 309 10x3/uL (130-400); RDW 16.3 % (11.5-14.5); WBC 19.3 10x3/uL (4.8-10.8)
--- NOTE | 2019-11-16 08:49 | NUR ---
SPOKE WITH DR. VELA. EDER TO START DIET. CONTINUE ON HEPARIN DRIP.
--- NOTE | 2019-11-16 09:31 | NUR ---
PO MEDS GIVEN. MEAL TRAY AT BEDSIDE. SPOUSE ASSISTING PT WITH BREAKFAST. PAIN REMAINS 7/10 ON BACK AND NECK. 2MG IV MORPHINE GIVEN PER ORDERS. WILL CONTINUE TO MONITOR.
--- NOTE | 2019-11-16 14:34 | NUR ---
DR. FARFAN NOTIFIED OF CONSULT.
--- NOTE | 2019-11-16 14:39 | NUR ---
NO BM AT THIS TIME. PT ASKED IF HE COULD HAVE A SUPPOSITORY TO HELP HIM GET HIS BOWELS TO START MOVING. FERNANDO ARCINIEGA NOTIFIED. SHE WILL CHECK WITH DR. SETHI.
--- NOTE | 2019-11-16 17:30 | NUR ---
PT REPORT PAIN IN ABDOMEN. DR. HAMMER PAGED. WAITING GM BACK.
--- NOTE | 2019-11-16 19:00 | NUR ---
PT ASSESSMENT COMPETED AT THIS TIME, NO CHANGES NOTED FROM NURSE REPORT, PT AWAKES TO NAME AND AAOX4, VSS, WILL MONITOR FOR CHANGES
--- NOTE | 2019-11-16 20:28 | NUR ---
PT WAS ASSISTED ON BED DE LA PAZ AT THIS TIME,PT HAD A SMALL VERY SOFT BROWN STOOL
--- NOTE | 2019-11-16 23:43 | NUR ---
pt reassessment completed at this time, no changes noted from previous exam, vss, will monitor for changes
[2019-11-17] VITALS (19 sets, daily range): BP systolic 109–140; BP diastolic 67–92
--- NOTE | 2019-11-17 01:00 | NUR ---
pt resting with eyes closed, resp even and non labored, vss
--- NOTE | 2019-11-17 03:00 | NUR ---
PT REASSESSMENT COMPLETED AT THIS TIME, NO CHANGES NOTED FROM PREVIOUS EXAM, VSS
--- NOTE | 2019-11-17 05:00 | NUR ---
PT OFFERED CHG BATH AT THIS TIME, PT STATED THAT HE WANTED TO TAKE A SHOWER, PT WAS INFORMED THAT THERE WAS NO SHOWERS UP HERE, PT WAS ALSO INFORMED THAT HE WOULD HAVE A SHOWER WHEN HE WAS TRANSFERRED TO THE FLOOR, PT STATES THAT HE WOULD LIKE TO WAIT, PT WAS INFORMED THAT WAS HIS CHOICE BUT I WOULD CHECK WITH HIM IN A LATER TO SEE IF HE WANTED TO FRESHEN UP A LEAST. NO DISTRESS NOTED
--- NOTE | 2019-11-17 07:15 | NUR ---
ASSUMED CARE. AA&OX4. RATES PAIN 7/10 ON BACK, SHOULDER, CHEST. ON 3L O2 VIA NC. 18G PIV TO LEFT AC WITH NS AT 30ML/HR. PIV SITE TENDER TO TOUCH. PAUSED FLUID AT THIS TIME. LIANG CATHERTER IN PLACE WITH ADÁN URINE NOTED. CALL LIGHT IN REACH. BEDSIDE RAILS UP X 3. NO FURTHER NEEDS. WILL CONTINUE TO MONITOR.
[2019-11-17 07:32] LABS: ALBUMIN 3.1 g/dL (3.4-5.0); ANION GAP 10.7 mmol/L (8-16); BILIRUBIN - TOTAL 0.59 mg/dL (0.2-1.3); CARBON DIOXIDE 27.7 mmol/L (21.0-32.0); CREATININE - SERUM 1.1 mg/dL (0.6-1.3); MAGNESIUM - SERUM 2.2 mg/dL (1.8-2.4); PHOSPHOROUS 3.7 mg/dL (2.5-4.9); POTASSIUM - SERUM 3.4 mmol/L (3.5-5.1)
--- NOTE | 2019-11-17 08:00 | NUR ---
PIV ON LEFT AC TENDER. DC'D AT THIS TIME. 22G PIV INSERTED ON LEFT HAND X 3 ATTEMPS.
[2019-11-17 08:42] LABS: BASOPHILS 0.1 % (0-2); EOSINOPHILS 0 % (0-7); HEMATOCRIT 40.8 % (42.0-54.0); HEMOGLOBIN 13.6 g/dL (13.5-17.5); IMMATURE GRANULOCYTES 0.4 % (0-5); LYMPHOCYTES 7.5 % (15-50); MCH 32.2 pg (26.0-34.0); MCHC 33.3 g/dL (31.0-37.0); MCV 96.5 fL (80.0-100.0); MEAN PLATELET VOLUME 10.9 fL (7.4-10.4); MONOCYTES 8.7 % (2-11); NEUTROPHILS 83.3 % (40-80); PLATELET COUNT 332 10x3/uL (130-400); RBC 4.23 10x6/uL (4.20-6.10); RDW 15.8 % (11.5-14.5); WBC 16.1 10x3/uL (4.8-10.8)
--- NOTE | 2019-11-17 10:03 | NUR ---
DR. GUERRERO AT BEDSIDE. AWARE OF LOW POTASSIUM 3.4. CURRENTLY NOT ON ELECTROLYTE PROTOCOL.
--- NOTE | 2019-11-17 11:17 | NUR ---
RATES PAIN 6/10 ON NECK, SHOULDERS AND BACK. 2MG IV MORPHINE GIVEN PER ORDERS. POTASSIUM 3.4. ELECTROLYTE PROTOCOL FOLLOWED. WILL CONTINUE TO MONITOR.
--- NOTE | 2019-11-17 13:20 | NUR ---
REPOSITIONED FOR COMFORT. SPOUSE AT BEDSIDE. WILL CONTINUE TO MONITOR.
--- NOTE | 2019-11-17 15:57 | NUR ---
SAT UP ON SIDE OF BED WITH PHYSICAL THERAPY. WAS HOLDING HIS BREATH DUE TO PAIN. O2 SAT DROPPED TO 88%. RECOVERED ONCE REPOSITIONED BACK IN BED. BED BATH GIVEN. PARTIAL LINEN CHANGE PROVIDED. LIANG CARE PROVIDED. NO FURTHER NEEDS AT THIS TIME. WILL CONTINUE TO MONITOR.
--- NOTE | 2019-11-17 17:20 | NUR ---
PLACED ON BED DE LA PAZ. MODERATE AMOUNT OF BROWN LOOSE STOOL NOTED. PERICARE PROVIDED. REPOSITIONED FOR COMFORT. MEAL TRAY DELIVERED AND SET UP. SPOUSE AT BEDSIDE. NO FURTHER NEED AT THIS TIME. WILL CONTINUE TO MONITOR.
--- NOTE | 2019-11-17 19:24 | NUR ---
PT BEING TRANSFERRED TO ROOM 2216. REPORT CALLED TO RECEIVING NURSE.
--- NOTE | 2019-11-17 20:00 | NUR ---
PT SITTING UP IN BED WITHOUT DISTRESS, AOX4. O2/2LNC. IV LEFT HAND INFUSING NS @ KVO. TELE PLACED ON PT. SCDS ON. LIANG IN PLACE. AT BEDSIDE. DENIES NEEDS AT THIS TIME. CL IN REACH, WILL CTM
[2019-11-18] VITALS: BP 140/86
[2019-11-18 04:00] VITALS: BP 124/79
[2019-11-18 06:02] LABS: ALBUMIN 2.7 g/dL (3.4-5.0); ALKALINE PHOSPHATASE 76 U/L (30-120); ALT (SGPT) 69 U/L (10-68); BILIRUBIN - TOTAL 0.47 mg/dL (0.2-1.3); CALC OSMOLALITY 283 mosm/kg (275-300); CALCIUM 8.6 mg/dL (8.5-10.1); CARBON DIOXIDE 26.7 mmol/L (21.0-32.0); CHLORIDE - SERUM 109 mmol/L (98-107); CREATININE - SERUM 0.9 mg/dL (0.6-1.3); GLUCOSE 83 mg/dL (74-106); HEMATOCRIT 36.6 % (42.0-54.0); HEMOGLOBIN 12.1 g/dL (13.5-17.5); MAGNESIUM - SERUM 2.1 mg/dL (1.8-2.4); MCH 32.1 pg (26.0-34.0); MCHC 33.1 g/dL (31.0-37.0); MCV 97.1 fL (80.0-100.0); MEAN PLATELET VOLUME 10.4 fL (7.4-10.4); PHOSPHOROUS 3.8 mg/dL (2.5-4.9); PLATELET COUNT 312 10x3/uL (130-400); POTASSIUM - SERUM 3.6 mmol/L (3.5-5.1); PROTEIN - SERUM 5.9 g/dL (6.4-8.2); RBC 3.77 10x6/uL (4.20-6.10); RDW 16.2 % (11.5-14.5); SODIUM 143 mmol/L (136-145); UREA NITROGEN 12 mg/dL (7-18); WBC 13.5 10x3/uL (4.8-10.8); eGFR NON AFRICAN AMERICAN 89 mL/min (90-120)
--- NOTE | 2019-11-18 07:45 | NUR ---
RESTING IN BED, NO DISTRESS NOTED, MONITOR CHEST PAIN AND VITALS, TELE IN PLACE
[2019-11-18 09:14] VITALS: BP 131/84
[2019-11-18 10:33] LABS: LYMPHOCYTES 11 % (15-50); MONOCYTES 5 % (2-11); NEUTROPHILS 83 % (40-80); PLATELET ESTIMATE NORMAL; ROULEAUX OCC
[2019-11-18 13:11] LABS: HAPTOGLOBIN 94 mg/dL (32-363)
--- NOTE | 2019-11-18 13:30 | MORECARE ---
CASE MANAGEMENT DISCHARGE SUMMARY PATIENT: MOHINI TAVERAS UNIT: [id number] ADM DATE: 11/14/19 AGE: 69 : 50 SEX: M ROOM/BED: D.2216 AUTHOR: RONA RICHARD PHYSICIAN: REFERRING PHYSICIAN: MCKENZIE HURLEY MD DATE OF SERVICE: 11/18/19 Discharge Plan Patient Name: [facility]OHINI [facility]AVERAS [facility] [facility] 1950 Planned Disposition: Home or Self Care Anticipated Discharge Date: Discharge Date: Expected LOS: Initial Reviewer: [email or web address] Initial Review Date: 11/14/2019 Generated: 11/18/19 2:30 pm DCPIA - Discharge Planning Initial Assessment Updated by [email or web address]: Krystal Palomares on 11/18/19 1:26 pm * Is the patient Alert and Oriented? Yes * How many steps to enter\exit or inside your home? * PCP RUFUS MURILLO * Pharmacy [facility] * Preadmission Environment Home with Family * ADLs Independent * Equipment None * List name and contact numbers for known caregivers / representatives who currently or will assist patient after discharge: MÓNICA () [phone] * Verbal permission to speak to the caregivers and representatives has been obtained from the patient. N/A * Community resources currently utilized None * Additional services required to return to the preadmission environment? No * Can the patient safely return to the preadmission environment? Yes * Has this patient been hospitalized within the prior 30 days at any hospital? No Patient Name: MOHINI TAVERAS Page [id number] at 1330 All edits/amendments must be made on the electronic document DICTATION DATE: 11/18/19 1330 TRANSITION MANAGER: BEE 11/18/19 1330 RPT#: [id number] DC DATE: STATUS: ADM IN [facility] [address] [place] [address] END OF REPORT
--- NOTE | 2019-11-18 13:44 | MORECARE ---
CASE MANAGEMENT DISCHARGE SUMMARY PATIENT: MOHINI TAVERAS UNIT: [id number] ADM DATE: 11/14/19 AGE: 69 : 50 SEX: M ROOM/BED: D.2216 AUTHOR: HILARY,DOC PHYSICIAN: REFERRING PHYSICIAN: MCKENZIE HURLEY MD DATE OF SERVICE: 11/18/19 Discharge Plan Patient Name: MOHINI TAVERAS Facility: [facility]:[place] : 1950 Planned Disposition: Home or Self Care Anticipated Discharge Date: Discharge Date: Expected LOS: Initial Reviewer: [email or web address] Initial Review Date: 11/14/2019 Generated: 11/18/19 2:43 pm Comments DCP- Discharge Planning Updated by [email or web address]: Krystal Palomares on 11/18/19 12:[address] Patient Name: MOHINI TAVERAS Admission Status: ER Accout number: [id number] Admission Date: 11-14-2019 : 1950 Admission Diagnosis:CARDIAC ARREST, CAUSE UNSPECIFIED Attending: HUNTER Current LOS: 4 Anticipated DC Date: Planned Disposition: Home or Self Care Primary Insurance: MEDICARE A & B Discharge Planning Comments: CM met with patient to complete initial dc planning assessment. CM educated patient on the CM role and verbal consent given by patient to complete assessment. Patient lives at home with his where he is independent with his care. At discharge patient plans to return home and feels this is a safe discharge. 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 CM discussed availability of home health, rehab services, and medical equipment. Patient denied known discharge needs at this time. CM will continue to follow and will assist as needed with dc plans/needs. Cyber Incident Handler: Krystal Palomares DCPIA - Discharge Planning Initial Assessment Updated by [email or web address]: Krystal Palomares on 11/18/19 1:26 pm * Is the patient Alert and Oriented? Yes * How many steps to enter\exit or inside your home? * PCP RUFUS MURILLO * Pharmacy [facility] * Preadmission Environment Home with Family * ADLs Independent * Equipment None * List name and contact numbers for known caregivers / representatives who currently or will assist patient after discharge: MÓNICA () [phone] * Verbal permission to speak to the caregivers and representatives has been obtained from the patient. N/A * Community resources currently utilized None * Additional services required to return to the preadmission environment? No * Can the patient safely return to the preadmission environment? Yes * Has this patient been hospitalized within the prior 30 days at any hospital? No Last DP export: 11/18/19 12:30 p Patient Name: MOHINI TAVERAS Page [id number] at 1344 All edits/amendments must be made on the electronic document DICTATION DATE: 11/18/19 1343 ELECTRICAL CAD TECHNICIAN: BEE 11/18/19 1343 RPT#: [id number] DC DATE: STATUS: ADM IN [facility] [address] [place] [address] END OF REPORT
[2019-11-18 13:59] VITALS: BP 140/85
[2019-11-18 14:10] LABS: ACLA - IGG AB <9 GPL U/mL (0-14); ACLA - IGM AB 10 MPL U/mL (0-12)
[2019-11-18 14:10] LABS: SPE - A/G RATIO 1.1 (0.7-1.7); SPE - ALBUMIN 3.1 g/dL (2.9-4.4); SPE - ALPHA-1 GLOBULIN 0.3 g/dL (0.0-0.4); SPE - ALPHA-2 GLOBULIN 0.6 g/dL (0.4-1.0); SPE - BETA GLOBULIN 0.9 g/dL (0.7-1.3); SPE - M-SPIKE Not Observed g/dL (Not Observed); SPE - TOTAL PROTEIN 5.9 g/dL (6.0-8.5)
[2019-11-18 14:50] VITALS: BMI 24.5
[2019-11-18 17:10] VITALS: BP 129/77
--- NOTE | 2019-11-18 19:30 | NUR ---
PT SITTING UP IN BED WITHOUT DISTRESS, AOX4. IV LEFT HAND INFUSING NS @ KVO. STATES PAIN IN CHEST AND NECK 12/17. GAVE MORPHINE PO ORDERED. O2 2L/NC. DENIES OTHER NEEDS. CL IN REACH, WILL CTM
[2019-11-18 20:00] VITALS: BP 117/82
[2019-11-19] VITALS: BP 128/82
[2019-11-19 04:00] VITALS: BP 115/80
[2019-11-19 04:59] LABS: HEMATOCRIT 37.3 % (42.0-54.0); HEMOGLOBIN 12.5 g/dL (13.5-17.5); MCH 32.3 pg (26.0-34.0); MCHC 33.5 g/dL (31.0-37.0); MCV 96.4 fL (80.0-100.0); MEAN PLATELET VOLUME 9.8 fL (7.4-10.4); NEUTROPHILS 79.6 % (40-80); PLATELET COUNT 348 10x3/uL (130-400); RBC 3.87 10x6/uL (4.20-6.10); WBC 13.5 10x3/uL (4.8-10.8)
[2019-11-19 05:09] LABS: ALBUMIN 2.8 g/dL (3.4-5.0); ANION GAP 7.8 mmol/L (8-16); BILIRUBIN - TOTAL 0.7 mg/dL (0.2-1.3); CALCIUM 8.6 mg/dL (8.5-10.1); CARBON DIOXIDE 30.4 mmol/L (21.0-32.0); CREATININE - SERUM 1.1 mg/dL (0.6-1.3); MAGNESIUM - SERUM 1.9 mg/dL (1.8-2.4); PHOSPHOROUS 4.3 mg/dL (2.5-4.9); POTASSIUM - SERUM 3.2 mmol/L (3.5-5.1); PROTEIN - SERUM 6.2 g/dL (6.4-8.2)
--- NOTE | 2019-11-19 08:13 | NUR ---
PT ALERT AND ORIENTED UPON ENTERING WATCHING TV, FAMILY AT BEDSIDE. IV TO THE LEFT HAND, 2L O2 VIA NASAL CANNULA. MEDICATION GIVEN AT THIS TIME, NO DIFFICULTIES. ASSESSMENT PERFORMED AT THIS TIME. PT DENIES ANY NEEDS. BED IN LOWEST POSITION, BED RAILS X2, CALL LIGHT WITHIN REACH. WILL CONTINUE TO MONITOR.
[2019-11-19 09:12] VITALS: BP 133/75
--- NOTE | 2019-11-19 10:12 | NUR ---
MEDICATIONS ADMINISTERED AT THIS TIME. LIANG BAG EMPTIES,900 ML OUT. BLADDER TRAINING STARTING NOW. RESTING IN BED, DENIES ANY NEEDS. BED IN LOWEST POSITION, BED RAILS X2, CALL LIGHT WITHIN REACH. WILL CONTINUE TO MONITOR.
[2019-11-19 12:10] LABS: PROTEIN S - FREE 74 % (57-157); PROTEIN S - TOTAL 104 % (60-150)
[2019-11-19 13:10] LABS: PROTEIN S - FREE 76 % (57-157); PROTEIN S - FUNCTIONAL 82 % (63-140); PROTEIN S - TOTAL 90 % (60-150)
[2019-11-19 13:20] VITALS: BP 116/79
--- NOTE | 2019-11-19 14:49 | NUR ---
I have reviewed this patient and I concur with the Shift Assessment completed by the Licensed Practical Nurse today this shift.
--- NOTE | 2019-11-19 15:20 | NUR ---
HUNG IV ANTIBIOTICS AT THIS TIME. REMOVED LIANG CATHETER PER ORDERS AT THIS TIME. DENIES ANY NEEDS. WILL CONTINUE TO MONITOR.
[2019-11-19 16:45] VITALS: BP 114/72
--- NOTE | 2019-11-19 17:31 | NUR ---
ADMINISTERED MEDICATION AT THIS TIME, NO DIFFICULTIES. PT HAS BEEN ABLE TO URINATE SINCE LIANG CATHETER HAS BEEN TAKEN OUT. RESTING IN BED COMFORTABLY. DENIES ANY NEEDS. WILL CONTINUE TO MONITOR.
[2019-11-19 19:10] LABS: IMMUNOGLOBULIN E 69 IU/mL (6-495)
[2019-11-19 20:00] VITALS: BP 107/68
--- NOTE | 2019-11-19 20:00 | NUR ---
PT SITTING UP IN BED WITHOUT DISTRESS, AOX4. AT BEDSIDE. PT STATES PAIN 11/17. GAVE MORPHINE PO ORDERED. IV LEFT HAND INFUSING NS @ KVO. DENIES OTHER NEEDS AT THIS TIME. CL IN REACH, WILL CTM
[2019-11-20 04:00] VITALS: BP 113/59
[2019-11-20 06:06] LABS: HEMATOCRIT 38.1 % (42.0-54.0); HEMOGLOBIN 12.4 g/dL (13.5-17.5); MCHC 32.5 g/dL (31.0-37.0); MEAN PLATELET VOLUME 10.5 fL (7.4-10.4); PLATELET COUNT 366 10x3/uL (130-400); RBC 3.87 10x6/uL (4.20-6.10); WBC 14.4 10x3/uL (4.8-10.8)
[2019-11-20 06:08] LABS: MCV 98.4 fL (80.0-100.0)
[2019-11-20 06:27] LABS: LYMPHOCYTES 10 % (15-50); MONOCYTES 1 % (2-11); NEUTROPHILS 86 % (40-80); PLATELET ESTIMATE INCREASED
[2019-11-20 06:36] LABS: ALBUMIN 2.7 g/dL (3.4-5.0); ALKALINE PHOSPHATASE 85 U/L (30-120); ALT (SGPT) 64 U/L (10-68); BILIRUBIN - TOTAL 0.34 mg/dL (0.2-1.3); CALC OSMOLALITY 282 mosm/kg (275-300); CALCIUM 8.9 mg/dL (8.5-10.1); CARBON DIOXIDE 26.6 mmol/L (21.0-32.0); CHLORIDE - SERUM 110 mmol/L (98-107); CREATININE - SERUM 0.9 mg/dL (0.6-1.3); GLUCOSE 88 mg/dL (74-106); PROTEIN - SERUM 6.1 g/dL (6.4-8.2); SODIUM 143 mmol/L (136-145); UREA NITROGEN 10 mg/dL (7-18); eGFR NON AFRICAN AMERICAN 89 mL/min (90-120)
[2019-11-20 07:13] LABS: LUPUS - INTERPRETATION Comment: (()); LUPUS - THROMBIN TIME 15.4 sec (0.0-23.0); LUPUS - dRVVT 108.4 sec (0.0-47.0); LUPUS - dRVVT CONFIRMATION 1.7 ratio (0.8-1.2); PTT-LA 43.9 sec (0.0-51.9)
--- NOTE | 2019-11-20 07:44 | NUR ---
REPORT RECIEVED. PT SITTING SEMI FOWLERS IN BED. RR EVEN AND UNLABORED ON 2L NC. HE HAS A L HAND PIV INFUSING NS@ KVO. BED LOCKED AND IN LOWEST POSITON, CALL LIGHT WITHIN REACH. WILL CTM
[2019-11-20 09:08] VITALS: BP 128/89
[2019-11-20 12:15] VITALS: BP 110/73
--- NOTE | 2019-11-20 13:20 | NUR ---
I have reviewed this patient and I concur with the Shift Assessment completed by the Licensed Practical Nurse today this shift.
[2019-11-20 16:09] LABS: PROTEIN C - ANTIGEN 124 % (60-150); PROTEIN C - FUNCTIONAL 130 % (73-180)
[2019-11-20 16:59] VITALS: BP 139/70
--- NOTE | 2019-11-20 17:44 | NUR ---
TENDERNESS AND FIRMNESS NOTED ON PALPATION NOTED TO LEFT GROIN WITH GENERALIZED EDEMA AT SITE W/O ANY OTHER PERIPHERAL EDEMA WITH SKIN WARM AND DRY PEDAL PULSES NOTED. DR. ST.JOHN PEREZ FOR NOTIFICATION
--- NOTE | 2019-11-20 19:45 | NUR ---
RESULTS OF ULTRASOUND CALLED TO DR MONTE. NO NEW ORDERS RECEIVED
[2019-11-20 20:00] VITALS: BP 118/69
[2019-11-21 04:00] VITALS: BP 134/81
--- NOTE | 2019-11-21 04:37 | NUR ---
I have reviewed this patient and I concur with the Shift Assessment completed by the Licensed Practical Nurse today this shift.
[2019-11-21 07:18] LABS: BASOPHILS 0.2 % (0-2); EOSINOPHILS 0.5 % (0-7); HEMATOCRIT 38.7 % (42.0-54.0); HEMOGLOBIN 12.7 g/dL (13.5-17.5); IMMATURE GRANULOCYTES 1.9 % (0-5); LYMPHOCYTES 12.9 % (15-50); MCHC 32.8 g/dL (31.0-37.0); MCV 97.5 fL (80.0-100.0); MEAN PLATELET VOLUME 10.5 fL (7.4-10.4); MONOCYTES 11.3 % (2-11); NEUTROPHILS 73.2 % (40-80); PLATELET COUNT 406 10x3/uL (130-400); RBC 3.97 10x6/uL (4.20-6.10); RDW 15.7 % (11.5-14.5); WBC 16.5 10x3/uL (4.8-10.8)
[2019-11-21 07:32] LABS: ALBUMIN 2.9 g/dL (3.4-5.0); ANION GAP 9.7 mmol/L (8-16); BILIRUBIN - TOTAL 0.4 mg/dL (0.2-1.3); CALCIUM 8.6 mg/dL (8.5-10.1); CARBON DIOXIDE 27.8 mmol/L (21.0-32.0); CREATININE - SERUM 1.1 mg/dL (0.6-1.3)
[2019-11-21 07:33] LABS: POTASSIUM - SERUM 3.5 mmol/L (3.5-5.1)
[2019-11-21 07:54] VITALS: BP 130/75
--- NOTE | 2019-11-21 08:00 | NUR ---
ALERT AND ORIENTED X4. LUNGS CTA BUTDIMINISHED ANTERIOR X4. OXY IR GIVEN PRN FOR LEFT GROIN PAIN WITH TENDERNESS NOTED ON PALPATION. PEDAL PULSES NOTED TO BLE W/O ANY PERIPHERAL EDEMA. UP ADLIB IN ROOM AND ENCOURAGED TO USE CALL LIGHT FOR ASSSIT.
--- NOTE | 2019-11-21 10:36 | MORECARE ---
CASE MANAGEMENT DISCHARGE SUMMARY PATIENT: MOHINI TAVERAS UNIT: [id number] ADM DATE: 11/14/19 AGE: 69 : 50 SEX: M ROOM/BED: D.2216 AUTHOR: HILARY,DOC PHYSICIAN: REFERRING PHYSICIAN: MCKENZIE HURLEY MD DATE OF SERVICE: 11/21/19 Discharge Plan Patient Name: MOHINI TAVERAS Facility: [facility]:[place] : 1950 Planned Disposition: Home or Self Care Anticipated Discharge Date: Discharge Date: Expected LOS: Initial Reviewer: [email or web address] Initial Review Date: 11/14/2019 Generated: 11/21/19 11:36 am Comments DCP- Discharge Planning Updated by [email or web address]: Serena Johnson on 11/21/19 9:[address] Patient Name: MOHINI TAVERAS Encounter No: [id number] : 1950 Primary Insurance: MEDICARE A & B Anticipated DC Date: Planned Disposition: Home or Self Care External Planned Provider: : DCP follow-up note: CM met with patient by request of Dr Lynn. Pt lives at home with his , and up until admission he was independent. Since admission the patient is on continuous oxygen, and becomes dyspneic with minimal exertion and oxygen saturations decrease to low to mid 80's. CM spoke with patient and family about home health, rehab services, and medical equipment. Patient and are in agreement to IP rehab at [facility], [facility], and [facility] for anticipated home and portable oxygen, and nebulizers; EMERY signed. CM faxed referral to [facility], and [facility] Patient and family in agreement with discharge plan. Case management will follow and assist as needed. Serena THOMAS,RN,CM DCP- Discharge Planning Updated by [id number]: Krystal Palomares on 11/18/19 12:[address] Patient Name: MOHINI TAVERAS Admission Status: ER Accout number: [id number] Admission Date: 11-14-2019 : 1950 Admission Diagnosis:CARDIAC ARREST, CAUSE UNSPECIFIED Attending: HUNTER Current LOS: 4 Anticipated DC Date: Planned Disposition: Home or Self Care Primary Insurance: MEDICARE A & B Discharge Planning Comments: CM met with patient to complete initial dc planning assessment. CM educated patient on the CM role and verbal consent given by patient to complete assessment. Patient lives at home with his where he is independent with his care. At discharge patient plans to return home and feels this is a safe discharge. 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 CM discussed availability of home health, rehab services, and medical equipment. Patient denied known discharge needs at this time. CM will continue to follow and will assist as needed with dc plans/needs. Hall Clerk: Krystal Palomares DCPIA - Discharge Planning Initial Assessment Updated by [email or web address]: Krystal Palomares on 11/18/19 1:26 pm * Is the patient Alert and Oriented? Yes * How many steps to enter\exit or inside your home? * PCP RUFUS MURILLO * Pharmacy [facility] * Preadmission Environment Home with Family * ADLs Independent * Equipment None * List name and contact numbers for known caregivers / representatives who currently or will assist patient after discharge: MÓNICA () [phone] * Verbal permission to speak to the caregivers and representatives has been obtained from the patient. N/A * Community resources currently utilized None * Additional services required to return to the preadmission environment? No * Can the patient safely return to the preadmission environment? Yes * Has this patient been hospitalized within the prior 30 days at any hospital? No External Providers External Provider: [facility] Next Contact Date: Service Request Date: Service Type: Resolution: Reviewer: Comments: External Provider: Sepideh Next Contact Date: Service Request Date: Service Type: Resolution: Reviewer: Comments: Last DP export: 11/18/19 12:44 p Patient Name: MOHINI TAVERAS Page [id number] at 1036 All edits/amendments must be made on the electronic document DICTATION DATE: 11/21/19 1036 PIN STICKER: BEE 11/21/19 1036 RPT#: [id number] DC DATE: STATUS: ADM IN [facility] [address] [place] [address] END OF REPORT
--- NOTE | 2019-11-21 10:39 | NUR ---
rehab prescreen: thank you for this eval. mr degroot has medicare insurance with aarp secondary, per medicare guidelines mr degroot is too high function for IRF, he walked 250 ft with only 5% assist and contact guard assist. if anything changes please feel free re eval. once again thank for this eval. ina smith lpn clinical liasion
[2019-11-21 12:06] VITALS: BP 108/76
[2019-11-21 17:39] VITALS: BP 104/64
[2019-11-21 20:00] VITALS: BP 107/68
[2019-11-22 04:00] VITALS: BP 114/81
[2019-11-22 05:49] LABS: HEMATOCRIT 38.1 % (42.0-54.0); HEMOGLOBIN 12.3 g/dL (13.5-17.5); MCH 32.1 pg (26.0-34.0); MCHC 32.3 g/dL (31.0-37.0); PLATELET COUNT 398 10x3/uL (130-400); RBC 3.83 10x6/uL (4.20-6.10); RDW 16.4 % (11.5-14.5); WBC 16.4 10x3/uL (4.8-10.8)
[2019-11-22 05:50] LABS: MCV 99.5 fL (80.0-100.0)
[2019-11-22 06:08] LABS: ALBUMIN 2.6 g/dL (3.4-5.0); ALKALINE PHOSPHATASE 84 U/L (30-120); ALT (SGPT) 47 U/L (10-68); BILIRUBIN - TOTAL 0.34 mg/dL (0.2-1.3); CALC OSMOLALITY 285 mosm/kg (275-300); CARBON DIOXIDE 24.7 mmol/L (21.0-32.0); CHLORIDE - SERUM 110 mmol/L (98-107); GLUCOSE 96 mg/dL (74-106); POTASSIUM - SERUM 3.4 mmol/L (3.5-5.1); SODIUM 144 mmol/L (136-145); UREA NITROGEN 9 mg/dL (7-18); eGFR NON AFRICAN AMERICAN 79 mL/min (90-120)
[2019-11-22 06:39] LABS: LYMPHOCYTES 12 % (15-50); MONOCYTES 1 % (2-11); NEUTROPHILS 87 % (40-80); PLATELET ESTIMATE NORMAL
--- NOTE | 2019-11-22 08:00 | NUR ---
ALERT AND ORIENTED WITH LUNGS CTA ON AUSCULTATION. NO PERIPHERAL EDEMA NOTED AND UP ADLIB. PEDAL PULSES NOTED WITH SKIN WARM AND DRY AND CAP REFILL < 3 SEC. DENIES ANY PAIN OR DISCOMFORT AT THIS TIME. NO DYSPNEA NOTED. TELEMETRY INTACT. ENCOURAGED TO USE CALL LIGHT FOR ASSIST.
[2019-11-22 08:22] VITALS: BP 125/78
[2019-11-22 12:14] VITALS: BP 127/95
[2019-11-22 16:12] VITALS: BP 122/74
--- NOTE | 2019-11-22 18:30 | NUR ---
HEPARIN HELD PER PROTOCOL
[2019-11-22 20:29] VITALS: BP 116/67
[2019-11-23] VITALS (7 sets, daily range): BP systolic 110–148; BP diastolic 62–78
--- NOTE | 2019-11-23 07:16 | NUR ---
I have reviewed this patient and I concur with the Shift Assessment completed by the Licensed Practical Nurse today this shift.
--- NOTE | 2019-11-23 07:20 | NUR ---
LYING IN BED,WITHOUT DISTRESS. AT BEDSIDE
--- NOTE | 2019-11-23 07:21 | NUR ---
PT LYING IN BED RECEIVING BREATHING TREATMENTS, ASKED FOR PAIN MEDICATION, PT HAS SIGNIFICANT OTHER IN CHAIR AT BEDSIDE. CL IN REACH, LUNGS CTA, PT ON 2L NC, PT HAS HEPARIN RUNNING AT 8 AND PTT TO BE DRAWN AT 7. PT STATED LAST BM WAS YESTERDAY. NO OTHER NEEDS AT THIS TIME OTHER THAN PAON MEDICATION WHICH WILL BE ADMINISTERED BY PM NURSE BEFORE SHE LEAVES. ASSUME PT CARE
[2019-11-23 08:19] LABS: ALKALINE PHOSPHATASE 78 U/L (30-120); ALT (SGPT) 54 U/L (10-68); BILIRUBIN - TOTAL 0.55 mg/dL (0.2-1.3); CALC OSMOLALITY 278 mosm/kg (275-300); CALCIUM 9.1 mg/dL (8.5-10.1); CARBON DIOXIDE 28.9 mmol/L (21.0-32.0); CHLORIDE - SERUM 107 mmol/L (98-107); GLUCOSE 82 mg/dL (74-106); PROTEIN - SERUM 6.4 g/dL (6.4-8.2); SODIUM 141 mmol/L (136-145); UREA NITROGEN 10 mg/dL (7-18); eGFR NON AFRICAN AMERICAN 79 mL/min (90-120)
[2019-11-23 08:20] LABS: BASOPHILS 0.4 % (0-2); EOSINOPHILS 0.7 % (0-7); HEMATOCRIT 40.3 % (42.0-54.0); HEMOGLOBIN 12.9 g/dL (13.5-17.5); IMMATURE GRANULOCYTES 2.4 % (0-5); LYMPHOCYTES 15.9 % (15-50); MCH 31.4 pg (26.0-34.0); MCV 98.1 fL (80.0-100.0); MEAN PLATELET VOLUME 10.5 fL (7.4-10.4); MONOCYTES 11.5 % (2-11); NEUTROPHILS 69.1 % (40-80); RBC 4.11 10x6/uL (4.20-6.10); RDW 16.1 % (11.5-14.5)
[2019-11-23 08:21] LABS: PLATELET COUNT 507 10x3/uL (130-400)
--- NOTE | 2019-11-23 08:27 | NUR ---
PT PTT THIS MORNING IS 82.5. NO CHANGE. HEPARIN STILL TO RUN AT 8
--- NOTE | 2019-11-23 11:29 | NUR ---
This patient is a good ARU candidate. He is tentatively scheduled for pseudoanyersm repair of the groin today and therapy is on hold. Once that is done he will need another PT eval to determine his level of function post op. Rehab will continue to follow. Noni Douglas RN Clinical Liaison, Rehab
--- NOTE | 2019-11-23 12:26 | NUR ---
PT REQUESTED PAIN MDICATION STATED PAIN IN GROIN AREA IS AT A 7, ADMINISTERED PRN MEDICATION, NO OTHER NEEDS VOICED, CONTINUE WITH PLAN OF CARE
--- NOTE | 2019-11-23 14:22 | NUR ---
RECEIVED CALL FROM DR BARROSO'S NURSE JOSEPH RN TO OBTAIN BP IN BOTH ARMS AND INPUT INTO [place] RIGHT CARLOS ALBERTO FOR DR TO SEE. PT LEFT ARM READ 142/62 MANUALLY AND RT ARM IS 148/78 MANUALLY. WILL INPUT UNDER VITALS PER DR BARROSO
--- NOTE | 2019-11-23 14:41 | NUR ---
PT PTT AT 1230 WAS 79.2, PER PROTOCOL, NO CHANGE AT THIS TIME. CONTINUE WITH PLAN OF CARE
--- NOTE | 2019-11-23 16:45 | NUR ---
PT ON CL STATED HE IS UNABLE OT URINATE BUT HAS HAD THE URGE ALL DAY. BLADDER SCANNED PT AND SHOWS 733, SPOKE TO DR BRAGA AND REPORTED FINDINGS, PER DR PUENTE, PLACE LIANG BUT MAKE SURE TO BLADDER TRAIN AND RE,OVE BEFORE DC. PT STATES PAIN IS AT A 7 WILL ADMINISTER [place] PAIN MEDICATION BEFORE INSERTING CATHETER. O OTHER NEEDS AT THIS TIME. CONTINUE PLAN OF CARE
--- NOTE | 2019-11-23 17:25 | NUR ---
LIANG PLACEMENT COMPLETED. USED 16F, PT TOLERATED FAIRLY WELL, HAD ADMINISTERED PRN PAIN MEDICATION PRIOR TO INSERTION. EMCOURAGED PT TO ALLOW MORE TIME FOR PAIN MEDICATION TO TAKE EFFECT. OUT WAS OVER 800 IMMEDIATELY, SECURED LIANG IN PLACE WITH STAT LOCK. NO OTHER NEEDS VOICED, CONTINUE WITH PLAN OF CARE
[2019-11-23 18:12] LABS: BILIRUBIN NEGATIVE (NEGATIVE); GLUCOSE NEGATIVE (NEGATIVE); KETONE NEGATIVE (NEGATIVE); NITRITE NEGATIVE (NEGATIVE); SPECIFIC GRAVITY 1.015 (1.005-1.020); UROBILINOGEN NORMAL (NORMAL)
--- NOTE | 2019-11-23 21:14 | NUR ---
REC. CHGE. OF SHIFT WALKING ROUNDS.IN BED FAMILY MEMBER AT BEDSIDE. REINFORCED NPO AT MIDNITE FOR PROCEDURE IN AM VOICES UNDERSTANDING.WILL CONTINUE TO MONITOR FOR ANY CHGES AND FOLLOW CURRENT PLAN OF CARE
[2019-11-24] VITALS (24 sets, daily range): BP systolic 102–138; BP diastolic 69–90
--- NOTE | 2019-11-24 04:50 | NUR ---
I have reviewed this patient and I concur with the Shift Assessment completed by the Licensed Practical Nurse today this shift.
[2019-11-24 06:29] LABS: HEMOGLOBIN 13.5 g/dL (13.5-17.5); MCH 32.3 pg (26.0-34.0); MCHC 32.9 g/dL (31.0-37.0); MCV 98.1 fL (80.0-100.0); MEAN PLATELET VOLUME 10.3 fL (7.4-10.4); PLATELET COUNT 516 10x3/uL (130-400); RBC 4.18 10x6/uL (4.20-6.10); RDW 16.2 % (11.5-14.5); WBC 14.2 10x3/uL (4.8-10.8)
[2019-11-24 06:42] LABS: ALKALINE PHOSPHATASE 87 U/L (30-120); ALT (SGPT) 48 U/L (10-68); BILIRUBIN - TOTAL 0.66 mg/dL (0.2-1.3); CALC OSMOLALITY 277 mosm/kg (275-300); CALCIUM 9.5 mg/dL (8.5-10.1); CARBON DIOXIDE 28.4 mmol/L (21.0-32.0); CHLORIDE - SERUM 107 mmol/L (98-107); GLUCOSE 75 mg/dL (74-106); MAGNESIUM - SERUM 2.1 mg/dL (1.8-2.4); PHOSPHOROUS 3.9 mg/dL (2.5-4.9); POTASSIUM - SERUM 3.7 mmol/L (3.5-5.1); PROTEIN - SERUM 6.7 g/dL (6.4-8.2); SODIUM 141 mmol/L (136-145); UREA NITROGEN 8 mg/dL (7-18); eGFR NON AFRICAN AMERICAN 79 mL/min (90-120)
--- NOTE | 2019-11-24 06:49 | NUR ---
0330) HEPARIN DRIP OFF ORDERED.GROINS CLIPED BILAT.
[2019-11-24 07:13] LABS: FACTOR II DNA ANALYSIS Negative (())
[2019-11-24 10:49] LABS: EOSINOPHILS 3 % (0-7); LYMPHOCYTES 23 % (15-50); MONOCYTES 14 % (2-11); NEUTROPHILS 60 % (40-80)
[2019-11-24 10:50] LABS: ANISOCYTOSIS OCC; PLATELET ESTIMATE INCREASED
--- NOTE | 2019-11-24 11:21 | NUR ---
PT ARRIVED TO UNIT AROUND 1105. CONNECTED TO MONITOR. ON 100% SIMPLE MASK. PT YELLING "HELP ME, HELP ME." BP 116/66, HR 86, O2 SAT 98%. DRESSING TO LEFT GROIN, C/D/I. PT STATES THAT IT HURTS WHEN TOUCHED. NO BLEEDING NOTED. KURT DRAIN IN PLACE WITH BLOODY DRAINAGE NOTED. PEDAL PULSES ASSESSED WITH DOPPLER. SAFETY MEASURES IN PLACE. WILL CONTINUE TO MONITOR.
--- NOTE | 2019-11-24 11:35 | NUR ---
SIMPLE MASK REMOVED. PLACED ON 4L O2 VIA NC.
--- NOTE | 2019-11-24 12:59 | NUR ---
LIANG CATHETER DC'D AT THIS TIME PER ORDERS.
--- NOTE | 2019-11-24 15:00 | NUR ---
RESTING IN BED. NO ACUTE CHANGES FROM PREVIOUS ASSESSMENT. LEFT GROIN DRESSING C/D/I. KURT DRAIN IN PLACE. ORAL TEMP 99.0. NO FURTHER NEEDS. WILL CONTINUE TO MONITOR.
--- NOTE | 2019-11-24 16:30 | NUR ---
AMBULATED TO BATHROOM. UNABLE TO MEASURE VOID. ASSISTED TO CHAIR. BP STABLE. CONTINUES TO REPORT PAIN 6/10 TO LEFT GROIN AT INCISION SITE. SPOUSE AT BEDSIDE. WILL CONTINUE TO MONITOR.
--- NOTE | 2019-11-24 19:30 | NUR ---
PT A/OX4, SITTING UP IN CHAIR @ BEDSIDE, LUNGS CLEAR, O2 @ 2L VIA N/C, LEFT FA PIV INTACT WITH IVF'S INFUSING, PT WATCHING TV WITH NO DISTRESS NOTED
[2019-11-25] VITALS (24 sets, daily range): BP systolic 90–142; BP diastolic 56–97
--- NOTE | 2019-11-25 01:00 | NUR ---
PT RESTING QUIETLY WITH EYES CLOSED, AROUSES EASILY WITH NO C/O
--- NOTE | 2019-11-25 03:19 | NUR ---
PT SLEEPING WITH NO DISTRESS NOTED, VITALS STABLE
--- NOTE | 2019-11-25 05:15 | NUR ---
pt c/o pain, medicated per emar, vitals stable, minimal drainage from radha drain
[2019-11-25 05:35] LABS: HEMATOCRIT 40.7 % (42.0-54.0); HEMOGLOBIN 13.2 g/dL (13.5-17.5); MCHC 32.4 g/dL (31.0-37.0); MCV 98.5 fL (80.0-100.0); MEAN PLATELET VOLUME 10.5 fL (7.4-10.4); RBC 4.13 10x6/uL (4.20-6.10); WBC 16.4 10x3/uL (4.8-10.8)
[2019-11-25 05:48] LABS: ALBUMIN 2.8 g/dL (3.4-5.0); ANION GAP 8.8 mmol/L (8-16); BILIRUBIN - TOTAL 0.47 mg/dL (0.2-1.3); CALCIUM 8.4 mg/dL (8.5-10.1); CARBON DIOXIDE 29.7 mmol/L (21.0-32.0); CREATININE - SERUM 1.1 mg/dL (0.6-1.3); MAGNESIUM - SERUM 1.9 mg/dL (1.8-2.4); PHOSPHOROUS 3.3 mg/dL (2.5-4.9); POTASSIUM - SERUM 3.5 mmol/L (3.5-5.1); PROTEIN - SERUM 6.2 g/dL (6.4-8.2)
--- NOTE | 2019-11-25 09:13 | NUR ---
0700 PT RECIEVED IN BED ALERT AN DORIENTED VSS DENIES ALL NEEDS, STATES PAIN TO INCISION SITE WHEN MOVING, KURT DRAIN COMPRESSED, SITE SOFT WITH NO SIGNS OF BLEEDING, SEE SHIFT ASSESSMENT FOR DETAILS 0900 TOOK AM MEDS, ATE 50% BREAKFAST AND ASSISTED TO BATHROOM, AT BEDSIDE
--- NOTE | 2019-11-25 11:28 | NUR ---
Nutrition Follow-up: S/p L femoral artery repair yesterday. Ate ~50% of breakfast this AM. Diet: Regular PO intake: 50% x last 2 meals Wt: 156.5# (11/24); 164.2# (11/14) Labs noted: Ca 8.4, Alb 2.8 Meds noted: Linzess, Protonix, electrolyte protocol -Encourage PO intake and honor food preferences. -Offer nutrition supplements. -Monitor wt. -RD following.
--- NOTE | 2019-11-25 14:09 | NUR ---
1100 PT AMBULATED 500FT WITH THERAPY 1200 PT ATE 25% LUNCH
--- NOTE | 2019-11-25 17:29 | NUR ---
PT ATE 100% DINNER TRAY
--- NOTE | 2019-11-25 20:02 | NUR ---
1900 REPORT RECEIVED CARE ASSUMED ASSSESSMENT DONE SEE FLOW SHEET VSS. NO SIGNS OF ACUTE DISTRESS NOTED. 1999 FAMILY AT BEDSIDE PATIENT IN BED SLEEPING. FAMILY REQUESTED PAIN MED. TEACHING GIVEN. PAIN MEDICINE DENIED. WILL CONTINUE TO MONITOR.
[2019-11-26] VITALS (16 sets, daily range): BP systolic 103–129; BP diastolic 63–85; Ht 177.8 cm; Wt 70.0 kg
--- NOTE | 2019-11-26 00:47 | NUR ---
2100 MEDS GIVEN PER AUG. VSS WILL CONTINUE TO MONITOR. 2300 REASSESSMENT COMPLETED. VSS WILL CONTINUE TO MONITOR. 0048 PATIENT RESTING IN BED NO SIGNS OF ACUTE DISTRESS NOTED WILL CONTINUE TO MONITOR.
--- NOTE | 2019-11-26 03:00 | NUR ---
REASSESSMENT DONE SEE FLOW SHEET VSS WILL CONTINUE TO MONITOR.
[2019-11-26 05:48] LABS: PHOSPHOROUS 2.8 mg/dL (2.5-4.9)
[2019-11-26 06:06] LABS: BASOPHILS 0.2 % (0-2); EOSINOPHILS 0.9 % (0-7); HEMATOCRIT 37.7 % (42.0-54.0); HEMOGLOBIN 12.4 g/dL (13.5-17.5); IMMATURE GRANULOCYTES 1.9 % (0-5); LYMPHOCYTES 10.4 % (15-50); MCH 32.3 pg (26.0-34.0); MCHC 32.9 g/dL (31.0-37.0); MCV 98.2 fL (80.0-100.0); MEAN PLATELET VOLUME 10.5 fL (7.4-10.4); MONOCYTES 10.5 % (2-11); NEUTROPHILS 76.1 % (40-80); PLATELET COUNT 438 10x3/uL (130-400); RBC 3.84 10x6/uL (4.20-6.10); RDW 15.8 % (11.5-14.5); WBC 16.2 10x3/uL (4.8-10.8)
[2019-11-26 06:14] LABS: CALC OSMOLALITY 277 mosm/kg (275-300); CALCIUM 8.7 mg/dL (8.5-10.1); CARBON DIOXIDE 28.8 mmol/L (21.0-32.0); CHLORIDE - SERUM 107 mmol/L (98-107); CREATININE - SERUM 0.9 mg/dL (0.6-1.3); GLUCOSE 101 mg/dL (74-106); POTASSIUM - SERUM 3.8 mmol/L (3.5-5.1); SODIUM 140 mmol/L (136-145); UREA NITROGEN 10 mg/dL (7-18); eGFR NON AFRICAN AMERICAN 89 mL/min (90-120)
[2019-11-26 06:17] LABS: ALBUMIN 2.5 g/dL (3.4-5.0); ALKALINE PHOSPHATASE 77 U/L (30-120); ALT (SGPT) 35 U/L (10-68); BILIRUBIN - TOTAL 0.62 mg/dL (0.2-1.3); PROTEIN - SERUM 5.9 g/dL (6.4-8.2)
--- NOTE | 2019-11-26 07:45 | NUR ---
AA&OX4. SITTING IN CHAIR. ON 2L O2 VIA NC. DRESSING TO LEFT GROIN C/S/I. KURT DRAIN IN PLACE WITH SEROSANGUINEOUS DRAINAGE NOTED. PT REPORTS SORES AT SITE. HAD PIV TO L-WRIST WITH PLASMOLYTE AT 30ML/HR. PIV TO RIGHT FOREARM. CALL LIGHT IN REACH. WILL CONTINUE TO MONITOR.
--- NOTE | 2019-11-26 13:42 | NUR ---
AMBULATED TO RESTROOM WITH MINIMAL ASSISTANCE. REPORTS BM AT THIS TIME. RATES PAIN 7/10 AT INCISION SITE. PT DOES NOT WANT PAIN MEDS AT THIS TIME. WILL NOTIFY NURSE IF HE CHANGES HIS MIND.
--- NOTE | 2019-11-26 15:44 | NUR ---
KURT DRAIN REMOVED BY DR. BARROSO. OKAY TO DISCHARGE HOME PER DR. BARROSO.
--- NOTE | 2019-11-26 15:50 | NUR ---
SPOKE WITH VIOLETA WITH CASE MANAGEMENT. STATED THAT PT HAS FOLLOW UP APPOINTMENT WITH DR. MURILLO ON November AT 0930.
[2019-11-26] MEDS ORDERED: XARELTO15 MG PO (15:58)
[2019-11-26] MEDS ORDERED: PLAVIX75 MG PO (16:04)
--- NOTE | 2019-11-26 18:16 | NUR ---
DISCHARGE INSTRUCTIONS REVIEWED WITH PT. FOLLOW UP APPOINTMENT WITH DR. GIVENS ON Jan AT 1145. PULMONARY FUNCTION TEST ON 01/25/20 AT 11:00. OXYGEN TANK IN ROOM. PIV TO L-WRIST AND R FOREARM DC'D PER ORDERS. SPOUSE AT BESIDE.
--- NOTE | 2019-11-26 18:34 | NUR ---
WHEELED OUT TO PERSONAL VEHICLE. PERSONAL BELONGINGS SENT WITH PT.
--- NOTE | 2019-11-27 09:12 | MORECARE ---
CASE MANAGEMENT DISCHARGE SUMMARY PATIENT: MOHINI TAVERAS UNIT: [id number] ADM DATE: 11/14/19 AGE: 69 : 50 SEX: M ROOM/BED: D[facility] AUTHOR: HILARY,DOC PHYSICIAN: REFERRING PHYSICIAN: MCKENZIE HURLEY MD DATE OF SERVICE: 11/27/19 Discharge Plan Patient Name: MOHINI TAVERAS Facility: [facility]:[place] : 1950 Planned Disposition: Home or Self Care Anticipated Discharge Date: Discharge Date: 11/26/2019 Expected LOS: Initial Reviewer: [email or web address] Initial Review Date: 11/14/2019 Generated: 11/27/19 10:11 am Comments DCP- Discharge Planning Updated by [email or web address]: Serena Johnson on 11/21/19 9:[address] Patient Name: MOHINI TAVERAS Encounter No: [id number] : 1950 Primary Insurance: MEDICARE A & B Anticipated DC Date: Planned Disposition: Home or Self Care External Planned Provider: : DCP follow-up note: CM met with patient by request of Dr Lynn. Pt lives at home with his , and up until admission he was independent. Since admission the patient is on continuous oxygen, and becomes dyspneic with minimal exertion and oxygen saturations decrease to low to mid 80's. CM spoke with patient and family about home health, rehab services, and medical equipment. Patient and are in agreement to IP rehab at [facility], [facility], and [facility] for anticipated home and portable oxygen, and nebulizers; EMERY signed. CM faxed referral to [facility], and [facility] Patient and family in agreement with discharge plan. Case management will follow and assist as needed. Serena Johnson MSN,RN,CM DCP- Discharge Planning Updated by [email or web address]: Krystal Palomares on 11/18/19 12:[address] Patient Name: MOHINI TAVERAS Admission Status: ER Accout number: [id number] Admission Date: 11-14-2019 : 1950 Admission Diagnosis:CARDIAC ARREST, CAUSE UNSPECIFIED Attending: HUNTER Current LOS: 4 Anticipated DC Date: Planned Disposition: Home or Self Care Primary Insurance: MEDICARE A & B Discharge Planning Comments: CM met with patient to complete initial dc planning assessment. CM educated patient on the CM role and verbal consent given by patient to complete assessment. Patient lives at home with his where he is independent with his care. At discharge patient plans to return home and feels this is a safe discharge. 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 CM discussed availability of home health, rehab services, and medical equipment. Patient denied known discharge needs at this time. CM will continue to follow and will assist as needed with dc plans/needs. Town Manager: Krystal Palomares DCPIA - Discharge Planning Initial Assessment Updated by [email or web address]: Krystal Palomares on 11/18/19 1:26 pm * Is the patient Alert and Oriented? Yes * How many steps to enter\exit or inside your home? * PCP RUFUS MURILLO * Pharmacy [facility] * Preadmission Environment Home with Family * ADLs Independent * Equipment None * List name and contact numbers for known caregivers / representatives who currently or will assist patient after discharge: MÓNICA () [phone] * Verbal permission to speak to the caregivers and representatives has been obtained from the patient. N/A * Community resources currently utilized None * Additional services required to return to the preadmission environment? No * Can the patient safely return to the preadmission environment? Yes * Has this patient been hospitalized within the prior 30 days at any hospital? No Last DP export: 11/21/19 9:37 a Patient Name: MOHINI TAVERAS Page 31821 at 0912 All edits/amendments must be made on the electronic document DICTATION DATE: 11/27/19910 STATISTICAL SECRETARY: BEE 11/27/19910 RPT#: [id number] DC DATE:11/26/19 STATUS: DIS IN [facility] [address] [place] [address] END OF REPORT
== END 2019-11-26 18:34 | disposition home or self-care (01) | DRG 250 ==
LOC: D.ER 08:52 → D.CVICU 09:34 → D.MS 09:34 → D.SDCHOLD 11-17 11:52 → D.CVICU 11-17 11:54 → D.MS 11-17 19:41 → D.SDCHOLD 11-19 16:30 → D.MS 11-19 16:43 → D.CVICU 11-24 10:14
PROVIDERS: Emergency Medicine; Family Medicine; Internal Medicine Cardiovascular Disease; Internal Medicine Hematology & Oncology; Internal Medicine Pulmonary Disease; ADMIT Family Medicine; ATTEND Family Medicine
PROC: B2111ZZ Fluoroscopy of Multiple Coronary Arteries using Low Osmolar Contrast (ICD-10-PCS; 2019-11-14)
PROC: B2151ZZ Fluoroscopy of Left Heart using Low Osmolar Contrast (ICD-10-PCS; 2019-11-14)
PROC: 4A023N7 Measurement of Cardiac Sampling and Pressure, Left Heart, Percutaneous Approach (ICD-10-PCS; 2019-11-14)
PROC: 5A1935Z Respiratory Ventilation, Less than 24 Consecutive Hours (ICD-10-PCS; 2019-11-14)
PROC: 0BH17EZ Insertion of Endotracheal Airway into Trachea, Via Natural or Artificial Opening (ICD-10-PCS; 2019-11-14)
PROC: 02703ZZ Dilation of Coronary Artery, One Artery, Percutaneous Approach (ICD-10-PCS; 2019-11-14 09:30)
PROC: 04QL0ZZ Repair Left Femoral Artery, Open Approach (ICD-10-PCS; principal; 2019-11-24 09:00)
DX: I21.A9 Other myocardial infarction type (principal); I46.9 Cardiac arrest, cause unspecified; J96.01 Acute respiratory failure with hypoxia; I26.99 Other pulmonary embolism without acute cor pulmonale; J96.02 Acute respiratory failure with hypercapnia; G93.41 Metabolic encephalopathy; I50.31 Acute diastolic (congestive) heart failure; J69.0 Pneumonitis due to inhalation of food and vomit; K72.00 Acute and subacute hepatic failure without coma; I97.190 Other postprocedural cardiac functional disturbances following cardiac surgery; T82.855A Stenosis of coronary artery stent, initial encounter; E87.2 Acidosis; R40.2432 Glasgow coma scale score 3-8, at arrival to emergency department; K58.9 Irritable bowel syndrome, unspecified; K21.9 Gastro-esophageal reflux disease without esophagitis; E78.5 Hyperlipidemia, unspecified; D75.89 Other specified diseases of blood and blood-forming organs; R73.9 Hyperglycemia, unspecified; I95.9 Hypotension, unspecified; I10 Essential (primary) hypertension; N40.0 Benign prostatic hyperplasia without lower urinary tract symptoms; M19.011 Primary osteoarthritis, right shoulder; E87.6 Hypokalemia; I25.10 Atherosclerotic heart disease of native coronary artery without angina pectoris; R53.81 Other malaise; I72.4 Aneurysm of artery of lower extremity; D53.9 Nutritional anemia, unspecified

== ENCOUNTER 2019-11-14 08:52 | Outpatient (CLI) | payer MEDICARE ==
[2019-11-14] MEDS ORDERED: MORPHINE IMMEDI15 MG PO (08:59)
[2019-11-14] MEDS ORDERED: LINZESS72 MCG PO (09:00)
[2019-11-14] MEDS ORDERED: MYSOLINE 50 MG50 MG PO (09:00)
[2019-11-14] MEDS ORDERED: KETAMINE NASAL SPRAY (09:01)
[2019-11-14] MEDS ORDERED: BREO ELLIPTA 11 EACH INH (09:01)
[2019-11-14] MEDS ORDERED: IRON (09:02)
[2019-11-14] MEDS ORDERED: MEGACE400 MG/10 PO (09:02)
[2019-11-14] MEDS ORDERED: B12 1000MCG (09:03)
[2019-11-14] MEDS ORDERED: VITAMIN E 450 MG (09:03)
[2019-11-14] MEDS ORDERED: ASCORBIC ACID500 MG PO (09:05)
[2019-11-14] MEDS ORDERED: BENADRYL25 MG PO (09:06)
[2019-11-14] MEDS ORDERED: FLOMAX0.4 MG PO (13:43)
[2019-11-14] MEDS ORDERED: IMITREX100 MG PO (14:19)
[2019-11-26] MEDS ORDERED: XARELTO15 MG PO (15:58)
[2019-11-26] MEDS ORDERED: PLAVIX75 MG PO (16:04)
== END 2020-02-01 08:31 | disposition home or self-care (01) ==
LOC: D.RT 01-25 11:30
PROVIDERS: ATTEND Internal Medicine Pulmonary Disease
DX: Z11.59 Encounter for screening for other viral diseases (principal); I26.99 Other pulmonary embolism without acute cor pulmonale; Z86.74 Personal history of sudden cardiac arrest

== ENCOUNTER 2020-03-17 21:46 | Emergency (ER) | payer MEDICARE ==
[~2020-03-17] VITALS: Ht 177.8 cm; Wt 72.7 kg
[~2020-03-17 21:46] MED LIST changes: +B12 1000MCG; +BREO ELLIPTA 11 EACH INH; +IRON; +KETAMINE NASAL SPRAY; +LINZESS72 MCG PO; +MEGACE400 MG/10 PO; +MORPHINE IMMEDI15 MG PO; +VITAMIN E 450 MG; +XARELTO15 MG PO
[2020-03-17 21:50] VITALS: Ht 177.8 cm; Wt 72.7 kg
[2020-03-17] MEDS ORDERED: SINGULAIR10 MG PO (21:52)
[2020-03-17] MEDS ORDERED: XARELTO15 MG PO (21:53)
[2020-03-17] MEDS ORDERED: XARELTO10 MG PO (21:53)
[2020-03-17] MEDS ORDERED: K-TAB10 MEQ PO (21:56)
[2020-03-17] MEDS ORDERED: LIPITOR10 MG PO (21:56)
[2020-03-17] MEDS ORDERED: TORSEMIDE20 MG PO (21:58)
[2020-03-17 22:34] LABS: BILIRUBIN NEGATIVE (NEGATIVE); KETONE NEGATIVE (NEGATIVE); NITRITE NEGATIVE (NEGATIVE); UROBILINOGEN NORMAL mg/dL (< 2)
[2020-03-17 23:23] LABS: HEMATOCRIT 44.5 % (42.0-54.0); HEMOGLOBIN 15.2 g/dL (13.5-17.5); LYMPHOCYTES 6.5 % (15-50); MCH 31.2 pg (26.0-34.0); MCHC 34.2 g/dL (31.0-37.0); MCV 91.4 fL (80.0-100.0); MEAN PLATELET VOLUME 9.6 fL (7.4-10.4); NEUTROPHILS 85.8 % (40-80); PLATELET COUNT 338 10x3/uL (130-400); RBC 4.87 10x6/uL (4.20-6.10); RDW 13.4 % (11.5-14.5); WBC 10.8 10x3/uL (4.8-10.8)
[2020-03-17 23:31] LABS: CALC OSMOLALITY 271 mosm/kg (275-300); CALCIUM 8.6 mg/dL (8.5-10.1); CHLORIDE - SERUM 99 mmol/L (98-107); CREATININE - SERUM 1.5 mg/dL (0.6-1.3); GLUCOSE 89 mg/dL (74-106); POTASSIUM - SERUM 3.3 mmol/L (3.5-5.1); SODIUM 135 mmol/L (136-145); UREA NITROGEN 22 mg/dL (7-18); eGFR NON AFRICAN AMERICAN 49 mL/min (90-120)
[2020-03-17 23:40] LABS: ALBUMIN 3.1 g/dL (3.4-5.0); ALKALINE PHOSPHATASE 87 U/L (30-120); ALT (SGPT) 53 U/L (10-68); AMYLASE - SERUM 80 U/L (25-115); BILIRUBIN - TOTAL 0.45 mg/dL (0.2-1.3); LIPASE 183 U/L (73-393); PROTEIN - SERUM 7.7 g/dL (6.4-8.2)
[2020-03-17 23:42] LABS: TROPONIN-I < 0.017 ng/mL (0.000-0.060)
[2020-03-18 01:00] VITALS: BP 125/77
== END 2020-03-18 05:32 | disposition home or self-care (01) ==
LOC: D.ER 21:46
PROVIDERS: Emergency Medicine
DX: R10.9 Unspecified abdominal pain (principal); R11.0 Nausea; E87.6 Hypokalemia; I10 Essential (primary) hypertension; J44.9 Chronic obstructive pulmonary disease, unspecified; K21.9 Gastro-esophageal reflux disease without esophagitis; R19.7 Diarrhea, unspecified

== ENCOUNTER 2020-03-22 13:13 | Inpatient (IN) | payer MEDICARE ==
[~2020-03-22] VITALS: Ht 177.8 cm; Wt 86.4 kg
[~2020-03-22 13:13] MED LIST changes: -B12 1000MCG; +B12 1000MCG PO; +K-TAB10 MEQ PO; +SINGULAIR10 MG PO; +TORSEMIDE20 MG PO; -VITAMIN E 450 MG; +VITAMIN E 450 MG PO; +XARELTO10 MG PO
[2020-03-22 13:47] LABS: HEMATOCRIT 48.9 % (42.0-54.0); HEMOGLOBIN 16.6 g/dL (13.5-17.5); MCH 30.7 pg (26.0-34.0); MCHC 33.9 g/dL (31.0-37.0); MCV 90.6 fL (80.0-100.0); MEAN PLATELET VOLUME 10.2 fL (7.4-10.4); RDW 13.6 % (11.5-14.5); WBC 7.7 10x3/uL (4.8-10.8)
[2020-03-22 13:52] LABS: PLATELET COUNT 406 10x3/uL (130-400)
[2020-03-22 13:53] LABS: INR 1.76 (0.85-1.17); PROTIME 20.3 SECONDS (11.6-15.0)
[2020-03-22 13:54] LABS: APTT 43.2 SECONDS (22.8-39.4)
[2020-03-22 13:55] LABS: CALC OSMOLALITY 276 mosm/kg (275-300); CALCIUM 9.3 mg/dL (8.5-10.1); CARBON DIOXIDE 24.8 mmol/L (21.0-32.0); CHLORIDE - SERUM 103 mmol/L (98-107); CREATININE - SERUM 1.1 mg/dL (0.6-1.3); GLUCOSE 101 mg/dL (74-106); POTASSIUM - SERUM 3.3 mmol/L (3.5-5.1); SODIUM 138 mmol/L (136-145); UREA NITROGEN 16 mg/dL (7-18); eGFR NON AFRICAN AMERICAN 70 mL/min (90-120)
[2020-03-22 14:08] LABS: ALBUMIN 3.2 g/dL (3.4-5.0); ALKALINE PHOSPHATASE 100 U/L (30-120); ALT (SGPT) 39 U/L (10-68); BILIRUBIN - TOTAL 0.39 mg/dL (0.2-1.3); C-REACTIVE PROTEIN 4.6 mg/dL (0.0-0.9); MAGNESIUM - SERUM 2.3 mg/dL (1.8-2.4); PRO BNP 42 pg/mL (0-125); PROTEIN - SERUM 8.3 g/dL (6.4-8.2)
[2020-03-22 14:12] LABS: TROPONIN-I < 0.017 ng/mL (0.000-0.060)
[2020-03-22 14:14] LABS: LYMPHOCYTES 14 % (15-50); MONOCYTES 8 % (2-11); NEUTROPHILS 76 % (40-80); PLATELET ESTIMATE NORMAL
[2020-03-22 16:07] VITALS: BP 113/79
[2020-03-22 18:02] LABS: BILIRUBIN NEGATIVE (NEGATIVE); KETONE NEGATIVE (NEGATIVE); NITRITE NEGATIVE (NEGATIVE); UROBILINOGEN NORMAL mg/dL (< 2)
[2020-03-23 04:00] VITALS: BP 109/80
[2020-03-23 06:31] LABS: ANION GAP 15.9 mmol/L (8-16); C-REACTIVE PROTEIN 3.4 mg/dL (0.0-0.9); CALCIUM 9.2 mg/dL (8.5-10.1); CARBON DIOXIDE 22.8 mmol/L (21.0-32.0); CREATININE - SERUM 1.2 mg/dL (0.6-1.3); MAGNESIUM - SERUM 2.3 mg/dL (1.8-2.4); POTASSIUM - SERUM 3.7 mmol/L (3.5-5.1)
[2020-03-23 06:49] LABS: APTT 49.1 SECONDS (22.8-39.4)
[2020-03-23 06:59] LABS: INR 2.09 (0.85-1.17); PROTIME 23.1 SECONDS (11.6-15.0)
[2020-03-23 07:00] LABS: D-DIMER-QUANTITATIVE 0.6 ug/mLFEU (0.20-0.54)
[2020-03-23 07:11] LABS: BASOPHILS 0 % (0-2); EOSINOPHILS 0 % (0-7); HEMATOCRIT 43.9 % (42.0-54.0); HEMOGLOBIN 14.5 g/dL (13.5-17.5); IMMATURE GRANULOCYTES 0.3 % (0-5); LYMPHOCYTES 9.2 % (15-50); MCH 30.1 pg (26.0-34.0); MCV 91.3 fL (80.0-100.0); MEAN PLATELET VOLUME 10.5 fL (7.4-10.4); MONOCYTES 5.9 % (2-11); NEUTROPHILS 84.6 % (40-80); PLATELET COUNT 460 10x3/uL (130-400); RBC 4.81 10x6/uL (4.20-6.10); RDW 13.8 % (11.5-14.5); WBC 8.6 10x3/uL (4.8-10.8)
[2020-03-23 09:11] VITALS: BP 105/58
[2020-03-23 09:26] LABS: ERYTHROCYTE SEDIMENTATION RATE 41 mm/hr (0-20)
[2020-03-23 11:30] VITALS: BP 110/85
[2020-03-23 13:52] VITALS: BMI 21.6
--- NOTE | 2020-03-23 14:17 | NUR ---
PT DID NOT GET LUNCH TRAY ON CART, CALLED FOR LATE ONE. BROUGHT TO ROOM BUT PT SLEEPING NOW. LEFT AT BEDSIDE, WILL CHECK IN A FEW.
[2020-03-23 15:58] VITALS: BP 106/67
--- NOTE | 2020-03-23 18:43 | MORECARE ---
CASE MANAGEMENT DISCHARGE SUMMARY PATIENT: MOHINI TAVERAS UNIT: [id number] ADM DATE: 03/23/20 AGE: 69 : 50 SEX: M ROOM/BED: D.2135 AUTHOR: RONA RICHARD PHYSICIAN: REFERRING PHYSICIAN: NASREEN BEE MD DATE OF SERVICE: 03/23/20 Discharge Plan Patient Name: MOHINI TAVERAS [facility] [facility] 1950 Planned Disposition: Anticipated Discharge Date: Discharge Date: Expected LOS: Initial Reviewer: [email or web address] Initial Review Date: 03/22/2020 Generated: 03/23/20 7:42 pm Patient Name: MOHINI TAVERAS Page [id number] at 1843 All edits/amendments must be made on the electronic document DICTATION DATE: 03/23/201841 INTERNATIONAL MARKETING MANAGER: BEE 03/23/201841 RPT#: [id number] DC DATE: STATUS: ADM IN [facility] [address] [place] [address] END OF REPORT
--- NOTE | 2020-03-23 18:50 | MORECARE ---
CASE MANAGEMENT DISCHARGE SUMMARY PATIENT: MOHINI TAVERAS UNIT: [id number] ADM DATE: 03/23/20 AGE: 69 : 50 SEX: M ROOM/BED: D.5428 AUTHOR: RONA RICHARD PHYSICIAN: REFERRING PHYSICIAN: NASREEN BEE MD DATE OF SERVICE: 03/23/20 Discharge Plan Patient Name: MOHINI TAVERAS Facility: [facility]:[place] : 1950 Planned Disposition: Anticipated Discharge Date: Discharge Date: Expected LOS: Initial Reviewer: [email or web address] Initial Review Date: 03/22/2020 Generated: 03/23/20 7:49 pm Comments DCP- Discharge Planning Updated by [id number]: Serena Johnson on 03/23/20 5:[address] Patient Name: MOHINI TAVERAS Admission Status: ER Accout number: [id number] Admission Date: 03-23-2020 : 1950 Admission Diagnosis:COVID-19 Attending: NASREEN BEE Current LOS: 1 Anticipated DC Date: Planned Disposition: Primary Insurance: MEDICARE A & B Discharge Planning Comments: CM met with patient via phone to complete initial dc planning assessment. Verbal consent given by patient to complete assessment. CM verified patient's address, phone number, and emergency contact phone numbers. Patient lives at home with his and is independent. States he also has daughters that live nearby who routinely assist if needed. At discharge patient plans to return home and feels this is a safe discharge. patient states that he is worried about his who also has Covid. States she has had a Kidney transplant and is fearful for her. States he has called her multiple times today to check on her. CM called Verónica at [phone] to check on her well being. CM encouraged Verónica to seek medical attention if she began to become short of breath. Verónica verbalized understanding. CM discussed availability of home health, rehab services, and medical equipment with the patient. Patient denied known discharge needs at this time. CM anticipated the need for home oxygen. Patient is in agreement with [facility] if needed. EMERY verbalized; pt declined home health services. Transportation provider at discharge will be Liane his daughter. CM will continue to follow and will assist as needed with dc plans/needs. Kiss Mixer: Serena Johnson DCPIA - Discharge Planning Initial Assessment Updated by [email or web address]: Serena Johnson on 03/23/20 6:43 pm * Is the patient Alert and Oriented? Yes * How many steps to enter\exit or inside your home? 0/0 * PCP Dmitry * [facility] * Preadmission Environment Home with Family * ADLs Independent * Equipment None * List name and contact numbers for known caregivers / representatives who currently or will assist patient after discharge: Verónica [phone], [phone] * Verbal permission to speak to the caregivers and representatives has been obtained from the patient. Yes * Community resources currently utilized None * Additional services required to return to the preadmission environment? Yes * Can the patient safely return to the preadmission environment? Yes * Has this patient been hospitalized within the prior 30 days at any hospital? No Coverage Notice Reviewer: [id number] - Serena Johnson Notice Issued Date-Time: 03/23/2020 10:00 Notice Type: Patient Choice Letter Notice Delivered To: Patient Relationship to Patient: Self Attorney Lawyer Name: Delivery Method: PHONE - Phone Kenia Days: Prior Verbal Notification: Yes Recipient Understood Notice: Yes Recipient Signature: Med Rec Note Co-signed by Attending: Coverage Notice Comment: EMERY in agreement with Josh for home oxygen. Declined HH services. Last DP export: 03/23/20 5:43 Patient Name: MOHINI TAVERAS Page [id number] at 1850 All edits/amendments must be made on the electronic document DICTATION DATE: 03/23/201848 SHIPPING ROOM SUPERVISOR: EBE 03/23/201848 RPT#: [id number] DC DATE: STATUS: ADM IN [facility] [address] [place] [address] END OF REPORT
--- NOTE | 2020-03-23 19:10 | NUR ---
RECIEVED PT LAYING IN BED ALERT AND ORIENTED. PT C/O GENERALIZED PAIN. RATES PAIN A 8 ON PAIN SCALE.PT HAS 02 @ 2L/M PER NASAL CANNULA.RESP ARE EVEN ET UNLABORED. HEARTRATE IS REGULAR.PT STATES POOR APPETITE.PT IS AMBULATORY.IV TO RIGHT HAND WITHOUT S/S OF INFILTRATION.NO DISTRESS NOTED.SAFETY MEASURES ARE IN PLACE.
[2020-03-23 19:49] VITALS: Ht 177.8 cm; Wt 86.4 kg
[2020-03-23 20:00] VITALS: BP 101/73
--- NOTE | 2020-03-23 20:39 | NUR ---
PT LAYING IN BED RESTING. PT IS ALERT AND ORIENTED.PT GIVEN PM MEDS.PT GIVEN MORPHINE 2 MG IV FOR PAIN.SAFETY MEASURES ARE IN PLACE.WILL CONTINUE TO MONITOR.
--- NOTE | 2020-03-23 23:00 | NUR ---
PT LAYING IN BED RESTING WITH EYES CLOSED. RESP ARE UNLABORED.IV WITHOUT S/S OF INFILTRATION.SAFETY MEASURES ARE IN PLACE.NO DISTRESS NOTED.
--- NOTE | 2020-03-24 01:00 | NUR ---
PT WITH EYES CLOSED. RESP ARE3 UNLABORED. IV INFUSING WITHOUT DIFFICULTY.SAFETY MEASURES ARE IN PLACE.NO DISTRESS NOTED.
--- NOTE | 2020-03-24 03:00 | NUR ---
PT CONTINUES TO REST QUIETLY. RESP ARE EVEN ET UNLABORED.02 IN USE. SAFETY MEASURES ARE IN PLACE.NO DISTRESS NOTED.
[2020-03-24 04:00] VITALS: BP 109/66
[2020-03-24 06:11] LABS: CALC OSMOLALITY 277 mosm/kg (275-300); CALCIUM 8.4 mg/dL (8.5-10.1); CARBON DIOXIDE 23.8 mmol/L (21.0-32.0); CHLORIDE - SERUM 100 mmol/L (98-107); GLUCOSE 122 mg/dL (74-106); MAGNESIUM - SERUM 1.9 mg/dL (1.8-2.4); PHOSPHOROUS 3.9 mg/dL (2.5-4.9); POTASSIUM - SERUM 3.5 mmol/L (3.5-5.1); SODIUM 137 mmol/L (136-145); UREA NITROGEN 22 mg/dL (7-18); eGFR NON AFRICAN AMERICAN 79 mL/min (90-120)
[2020-03-24 06:14] LABS: HEMATOCRIT 41.4 % (42.0-54.0); HEMOGLOBIN 13.8 g/dL (13.5-17.5); LYMPHOCYTES 6.7 % (15-50); MCH 30.3 pg (26.0-34.0); MCHC 33.3 g/dL (31.0-37.0); MCV 90.8 fL (80.0-100.0); MEAN PLATELET VOLUME 10.1 fL (7.4-10.4); PLATELET COUNT 492 10x3/uL (130-400); RBC 4.56 10x6/uL (4.20-6.10); RDW 13.8 % (11.5-14.5); WBC 9.8 10x3/uL (4.8-10.8)
[2020-03-24 07:56] VITALS: BP 99/62
[2020-03-24 12:17] VITALS: BP 102/70
--- NOTE | 2020-03-24 13:38 | NUR ---
Nutrition Follow-up: Pt in droplet isolation; covid-19+. Nursing reports pt not eating well and c/o sore throat. Discussed adding Ensure with meals. Diet: Cardiac Wt: 190# & 151# (03/23) Labs noted: Glu 122, Ca 8.4 Meds noted: Nystatin, Pepcid, Florajen, Micro K, Megace, Linzess, vit D, vit C, zinc sulfate, NS @ 50, electrolyte protocol -Encourage PO intake and honor food preferences within diet restrictions. -+Ensure with meals. -Need accurate wt. -RD following.
[2020-03-24 20:00] VITALS: BP 96/63
[2020-03-25 04:00] VITALS: BP 102/68
[2020-03-25 06:53] LABS: BASOPHILS 0.1 % (0-2); EOSINOPHILS 0 % (0-7); HEMOGLOBIN 12.5 g/dL (13.5-17.5); IMMATURE GRANULOCYTES 0.7 % (0-5); LYMPHOCYTES 10.1 % (15-50); MCH 30.6 pg (26.0-34.0); MCHC 33.8 g/dL (31.0-37.0); MCV 90.7 fL (80.0-100.0); MEAN PLATELET VOLUME 10.1 fL (7.4-10.4); NEUTROPHILS 82.1 % (40-80); PLATELET COUNT 499 10x3/uL (130-400); RBC 4.08 10x6/uL (4.20-6.10); RDW 13.5 % (11.5-14.5); WBC 8.5 10x3/uL (4.8-10.8)
[2020-03-25 09:16] LABS: CALCIUM 8.5 mg/dL (8.5-10.1); CARBON DIOXIDE 22.3 mmol/L (21.0-32.0); MAGNESIUM - SERUM 1.8 mg/dL (1.8-2.4); PHOSPHOROUS 3.4 mg/dL (2.5-4.9); POTASSIUM - SERUM 3.3 mmol/L (3.5-5.1)
[2020-03-25 09:17] LABS: CREATININE - SERUM 1.3 mg/dL (0.6-1.3)
[2020-03-25 13:06] VITALS: BP 101/55
--- NOTE | 2020-03-25 19:30 | NUR ---
PT IN BED, AAO X 3, RESP EVEN AND UNLABORED, NO DISTRESS NOTED, CL IN REACH, SR UP X 2.
[2020-03-25 21:14] VITALS: BP 87/53
--- NOTE | 2020-03-26 03:51 | NUR ---
I have reviewed this patient and I concur with the Shift Assessment completed by the Licensed Practical Nurse today this shift.
[2020-03-26 06:39] LABS: HEMATOCRIT 37.7 % (42.0-54.0); HEMOGLOBIN 12.7 g/dL (13.5-17.5); MCH 30.4 pg (26.0-34.0); MCHC 33.7 g/dL (31.0-37.0); MCV 90.2 fL (80.0-100.0); MEAN PLATELET VOLUME 10.2 fL (7.4-10.4); PLATELET COUNT 533 10x3/uL (130-400); RBC 4.18 10x6/uL (4.20-6.10); RDW 13.8 % (11.5-14.5); WBC 8.3 10x3/uL (4.8-10.8)
[2020-03-26 06:57] LABS: CARBON DIOXIDE 27.6 mmol/L (21.0-32.0); CREATININE - SERUM 1.1 mg/dL (0.6-1.3); MAGNESIUM - SERUM 1.7 mg/dL (1.8-2.4); POTASSIUM - SERUM 3.6 mmol/L (3.5-5.1)
[2020-03-26 07:03] LABS: PHOSPHOROUS 2.3 mg/dL (2.5-4.9)
[2020-03-26 08:02] LABS: LYMPHOCYTES 9 % (15-50); MONOCYTES 3 % (2-11); NEUTROPHILS 88 % (40-80); PLATELET ESTIMATE INCREASED
[2020-03-26 08:16] VITALS: BP 100/63
--- NOTE | 2020-03-26 09:54 | NUR ---
PT AWAKE AND ORIENTED, LYING IN BED. TOOK ALL MEDICAITONS WITHOUT COMPLICATIONS. CL IN REACH, SRX2.
[2020-03-26 12:08] VITALS: BP 99/64
[2020-03-26 17:08] LABS: CKMB 0.6 U/L (0.0-3.6); CREATINE KINASE 62 UL (21-232)
[2020-03-26 17:18] LABS: TROPONIN-I < 0.017 ng/mL (0.000-0.060)
--- NOTE | 2020-03-26 19:10 | NUR ---
I have reviewed this patient and I concur with the Shift Assessment completed by the Licensed Practical Nurse today this shift.
--- NOTE | 2020-03-26 19:30 | NUR ---
RECEIVED REPORT, WILL ASSUME CARE OF PT, ASKING FOR SOMETHING TO EAT, HE SAID HE DIDNT RECEIVE DINNER, I PROVIDED A SANDWICH AND DRINK, DENIES ANY OTHER NEEDS AT THIS TIME, BED IS LOW, SRX2, CALL LIGHT IN REACH, WILL CONTINUE PLAN OF CARE
[2020-03-26 20:37] VITALS: BP 105/64
[2020-03-27 00:27] VITALS: BP 96/72
[2020-03-27 04:23] VITALS: BP 118/83
--- NOTE | 2020-03-27 04:44 | NUR ---
TRY TO GET LAB, WAS UNABLE, GAVE TUBES TO CONVEYOR WEIGHER OPERATOR
[2020-03-27 07:47] LABS: BASOPHILS 0.2 % (0-2); EOSINOPHILS 0 % (0-7); HEMATOCRIT 43.8 % (42.0-54.0); HEMOGLOBIN 14.3 g/dL (13.5-17.5); IMMATURE GRANULOCYTES 0.8 % (0-5); LYMPHOCYTES 6.2 % (15-50); MCH 29.9 pg (26.0-34.0); MCHC 32.6 g/dL (31.0-37.0); MCV 91.6 fL (80.0-100.0); MEAN PLATELET VOLUME 10.3 fL (7.4-10.4); MONOCYTES 7.8 % (2-11); PLATELET COUNT 505 10x3/uL (130-400); RBC 4.78 10x6/uL (4.20-6.10)
[2020-03-27 07:50] LABS: WBC 10.4 10x3/uL (4.8-10.8)
[2020-03-27 08:10] LABS: ALKALINE PHOSPHATASE 76 U/L (30-120); ALT (SGPT) 29 U/L (10-68); BILIRUBIN - TOTAL 0.25 mg/dL (0.2-1.3); CALC OSMOLALITY 284 mosm/kg (275-300); CARBON DIOXIDE 26.2 mmol/L (21.0-32.0); CHLORIDE - SERUM 103 mmol/L (98-107); GLUCOSE 104 mg/dL (74-106); MAGNESIUM - SERUM 1.7 mg/dL (1.8-2.4); POTASSIUM - SERUM 3.5 mmol/L (3.5-5.1); SODIUM 142 mmol/L (136-145); UREA NITROGEN 19 mg/dL (7-18); eGFR NON AFRICAN AMERICAN 79 mL/min (90-120)
[2020-03-27 08:11] VITALS: BP 109/68
[2020-03-27 08:11] LABS: PHOSPHOROUS 4.1 mg/dL (2.5-4.9)
--- NOTE | 2020-03-27 10:04 | NUR ---
PT AWAKE AND ORIENTED, LYING IN BED. PT STATES THAT HE IS FEELING FINE THIS MORNING. TOOK ALL MEDICATIONS IWTHOUT COMPLICATIONS. OBTAINED URINE SPECIMEN. NO COMPLAINTS OR CONCERNS VOICED AT THIS TIME. WILL CNT. TO MONITOR. CL IN REACH, SRX2. CLEANED ROOM. TOOK OUT TRASH.
--- NOTE | 2020-03-27 12:37 | NUR ---
PT AWAKE AND ORIENTED, LYING IN BED EATING LUNCH. NO COMPLAINTS OR CONCERNS AT THIS TIME. CL IN REACH, SRX2.
--- NOTE | 2020-03-27 14:16 | NUR ---
SPOKE ABOUT OMID WITH PHARMACY, OMID 72MCG IS UNAVLIABLE. WILL NOT BE AVALIABLE UNTIL TOMORROW. CL IN REACH, SRX2.
--- NOTE | 2020-03-27 16:38 | NUR ---
NEW ORDER OBTAINED FOR DULCOLAX TAB PATIENT REFUSED THE DULCOLAX SUPPOSITORY.
[2020-03-27 17:19] VITALS: BP 125/74
--- NOTE | 2020-03-27 17:19 | NUR ---
I have reviewed this patient and I concur with the Shift Assessment completed by the Licensed Practical Nurse today this shift.
--- NOTE | 2020-03-27 18:40 | NUR ---
PT AWAKE AND ORIENTED, LYING IN BED EATING SUPPER. NO COMPLAINTS OR CONCERNS AT THIS TIME. CL IN REACH, SRX2
[2020-03-27 19:29] VITALS: BP 119/72
--- NOTE | 2020-03-27 19:30 | NUR ---
RECEIVED REPORT, WILL ASSUME CARE OF PT, WATCHING TV, DENIES ANY NEEDS AT THIS TIME, BED IS LOW, SRX2, CALL LIGHT IN REACH, WILL CONTINUE PLAN OF CARE
--- NOTE | 2020-03-28 02:29 | NUR ---
I have reviewed this patient and I concur with the Shift Assessment completed by the Licensed Practical Nurse today this shift.
[2020-03-28 07:34] LABS: BASOPHILS 0.1 % (0-2); EOSINOPHILS 0 % (0-7); HEMATOCRIT 38.2 % (42.0-54.0); HEMOGLOBIN 12.8 g/dL (13.5-17.5); LYMPHOCYTES 6.8 % (15-50); MCH 30.4 pg (26.0-34.0); MCHC 33.5 g/dL (31.0-37.0); MCV 90.7 fL (80.0-100.0); MEAN PLATELET VOLUME 10.1 fL (7.4-10.4); MONOCYTES 10.2 % (2-11); NEUTROPHILS 81.9 % (40-80); RBC 4.21 10x6/uL (4.20-6.10); RDW 14.1 % (11.5-14.5)
[2020-03-28 07:38] LABS: ALBUMIN 2.9 g/dL (3.4-5.0); ALKALINE PHOSPHATASE 77 U/L (30-120); ALT (SGPT) 37 U/L (10-68); BILIRUBIN - TOTAL 0.17 mg/dL (0.2-1.3); CALC OSMOLALITY 279 mosm/kg (275-300); CALCIUM 9.1 mg/dL (8.5-10.1); CARBON DIOXIDE 29.4 mmol/L (21.0-32.0); CHLORIDE - SERUM 101 mmol/L (98-107); GLUCOSE 93 mg/dL (74-106); POTASSIUM - SERUM 3.4 mmol/L (3.5-5.1); SODIUM 139 mmol/L (136-145); UREA NITROGEN 18 mg/dL (7-18); eGFR NON AFRICAN AMERICAN 79 mL/min (90-120)
[2020-03-28 07:39] LABS: PLATELET COUNT 637 10x3/uL (130-400); WBC 13.1 10x3/uL (4.8-10.8)
[2020-03-28 08:00] VITALS: BP 102/57
--- NOTE | 2020-03-28 09:41 | NUR ---
PT ALERT AND ORIENTED, GENO CHARLES BED EATING BREAKFAST. REPORTS BM LAST NIGHT, ADMINISTERED OFF SCHEDULE DOSE OF LINZESS D/T THE SYSTEM NOT LETTING ME BACK CHART TO THE ONE DUE AT SIX. PT REQUESTS SHOWER LATER TODAY, WILL ACCOMIDATE. NO COMPLAINTS OR CONCERNS VOICED AT THIS TIME. TRASH CHANGED, ROOM CLEANED. CL IN REACH, SRX2.
[2020-03-28 11:49] VITALS: BP 141/62; BP 99/74
--- NOTE | 2020-03-28 12:49 | NUR ---
PT AWAKE AND ORIENTE,D DENEIS WANT OR SHOWER AT THIS TIME. STATES THATHE WILL RECONSIDER LATER. NO COMLAINTSOR CONCERNS AT THIS TIME. CL IN REACH, SR2.
--- NOTE | 2020-03-28 12:55 | NUR ---
Nutrition Follow-up: Pt in droplet isolation; covid-19+. Nursing reports pt eating ok but does not like Ensure. Diet: Cardiac, Ensure TID PO intake: 100% x 3 yesterday Wt: 190# (03/23) Last BM: 03/27 Labs noted: K+ 3.4, Alb 2.9 Meds noted: Carafate, Nystatin, Pepcid, Florajen, Micro K, Megace, Linzess, niacin, zinc sulfate, vit D, vit C, NS @ 50, electrolyte protocol -D/c Ensure per pt's request. -Need new wt if possible; noted daily wts ordered. -RD following.
--- NOTE | 2020-03-28 14:10 | NUR ---
I have reviewed this patient and I concur with the Shift Assessment completed by the Licensed Practical Nurse today this shift.
--- NOTE | 2020-03-28 15:27 | NUR ---
I have reviewed this patient and I concur with the Shift Assessment completed by the Licensed Practical Nurse today this shift.
--- NOTE | 2020-03-28 19:30 | NUR ---
REPORT RECIEVED AND ROUNDING COMPLETE. PATIENT LAYING/SITTING IN BED IN HIGH FOWLERS. PATIENT REQUEST THAT NURSE TURN DOWN THE HEAT IN HIS ROOM. ALSO THAT WHEN NURSE BRINGS IN NIGHT MEDICATION TO BRING SNACKS. WEARING O2 AT 3.5L PER NASAL CANNULA. LEFT FOREARM PIV PATENT AND RUNNING FLUIDS AT THIS TIME. NO DISTRESS NOTED. BED IN LOWEST LOCKED POSITION CALL LIGHT WITHIN REACH.
[2020-03-28 20:00] VITALS: BP 105/70
[2020-03-29 04:00] VITALS: BP 114/76
[2020-03-29 05:04] LABS: BASOPHILS 0.4 % (0-2); EOSINOPHILS 0.4 % (0-7); HEMATOCRIT 39.5 % (42.0-54.0); LYMPHOCYTES 17.1 % (15-50); MCH 29.8 pg (26.0-34.0); MCHC 32.9 g/dL (31.0-37.0); MCV 90.6 fL (80.0-100.0); MONOCYTES 12.3 % (2-11); NEUTROPHILS 67.8 % (40-80); PLATELET COUNT 674 10x3/uL (130-400); RBC 4.36 10x6/uL (4.20-6.10); WBC 11.3 10x3/uL (4.8-10.8)
[2020-03-29 05:37] LABS: ALBUMIN 2.9 g/dL (3.4-5.0); ALKALINE PHOSPHATASE 82 U/L (30-120); ALT (SGPT) 46 U/L (10-68); BILIRUBIN - TOTAL 0.18 mg/dL (0.2-1.3); CALC OSMOLALITY 278 mosm/kg (275-300); CARBON DIOXIDE 29.2 mmol/L (21.0-32.0); CHLORIDE - SERUM 102 mmol/L (98-107); GLUCOSE 89 mg/dL (74-106); POTASSIUM - SERUM 3.1 mmol/L (3.5-5.1); SODIUM 139 mmol/L (136-145); UREA NITROGEN 18 mg/dL (7-18); eGFR NON AFRICAN AMERICAN 79 mL/min (90-120)
[2020-03-29 07:56] VITALS: BP 98/75
--- NOTE | 2020-03-29 08:00 | NUR ---
PT LAYING SUPINE, RR EVEN AND UNLABORED. DENIES NEEDS OR PAIN AT THIS TIME. CALL LIGHT WITHIN REACH. SPOKE WITH GERMANIA DIAZ BEFORE ENTERING ROOM, HE STATES HE WANTS TO ATTEMPT TO WEAN PT DOWN ON THE 02 TO 2L. LOWERED PT TO 2L. AFTER 2 MINUTES, PT'S O2 90%. INCREASED TO 3L AND O2 BACK AT 95%. BED IN LOWEST POSITION. CALL LIGHT WITHIN REACH. WILL CONTINUE TO MONITOR.
[2020-03-29 11:26] VITALS: BP 97/66
--- NOTE | 2020-03-29 13:44 | NUR ---
I have reviewed this patient and I concur with the Shift Assessment completed by the Licensed Practical Nurse today this shift.
--- NOTE | 2020-03-29 14:15 | NUR ---
I have reviewed this patient and I concur with the Shift Assessment completed by the Licensed Practical Nurse today this shift.
--- NOTE | 2020-03-29 17:57 | NUR ---
PT STATES HIS THROAT HURTS. PT IS ON NYSTATIN ORAL SUSPENSION; HOWEVER, NO SIGN OF THRUSH OR SWOLLEN/REDDENED TONSILS. CALLED AND SPOKE WITH GERMANIA EUCEDA APRN. ORDERS RECIEVED FOR THROAT SPRAY
--- NOTE | 2020-03-29 19:50 | NUR ---
RECIEVED PT LAYING IN BED ALERT AND ORIENTED. PT C/O PAIN TO THROAT.NO REDNESS NOTED.RESP ARE EVEN ET UNLABORED. OCC PRODUCTIVE COUGH CLEAR PHLEGM.HEARTRATE IS REGULAR.IV TO RIGHT FOREARM WITHOUT S/S OF INFILTRATION.PT STATES FAIR APPETITE.SAFETY MEASURES ARE IN PLACE. NO DISTRESS NOTED.
[2020-03-29 20:00] VITALS: BP 111/71
--- NOTE | 2020-03-29 20:06 | NUR ---
PT LAYING IN BED ALERT. PT GIVEN PM MEDS. PT GIVEN CHLOROSEPTIC SPRAY WITH INSTRUCTINS .IV INFUSING WITHOUT S/S OF INFILTRATION.SAFETY MEASURES ARE IN PLACE. NO DISTRESS NOTED.
[2020-03-30] VITALS: BP 112/71
--- NOTE | 2020-03-30 03:50 | NUR ---
PT LAYING IN BED RESTING WITH EYES CLOSED. EASILY AROUSED.RESP ARE REGULAR. BLOOD DRAWN FOR LAB.SAFETY MEASURES ARE IN PLACE.NO DISTRESS NOTED.
[2020-03-30 04:00] VITALS: BP 102/74
[2020-03-30 05:34] LABS: BASOPHILS 0.2 % (0-2); EOSINOPHILS 0.1 % (0-7); HEMATOCRIT 39.7 % (42.0-54.0); HEMOGLOBIN 13.3 g/dL (13.5-17.5); IMMATURE GRANULOCYTES 3.8 % (0-5); LYMPHOCYTES 7.7 % (15-50); MCH 30.1 pg (26.0-34.0); MCHC 33.5 g/dL (31.0-37.0); MCV 89.8 fL (80.0-100.0); MONOCYTES 7.9 % (2-11); NEUTROPHILS 80.3 % (40-80); PLATELET COUNT 647 10x3/uL (130-400); RBC 4.42 10x6/uL (4.20-6.10)
[2020-03-30 05:35] LABS: ALBUMIN 3.1 g/dL (3.4-5.0); ANION GAP 12.8 mmol/L (8-16); BILIRUBIN - TOTAL 0.31 mg/dL (0.2-1.3); CALCIUM 9.2 mg/dL (8.5-10.1); CARBON DIOXIDE 27.8 mmol/L (21.0-32.0); CREATININE - SERUM 1.2 mg/dL (0.6-1.3); POTASSIUM - SERUM 3.6 mmol/L (3.5-5.1); PROTEIN - SERUM 7.1 g/dL (6.4-8.2)
[2020-03-30 10:57] VITALS: BP 107/70
[2020-03-30] MEDS ORDERED: DECADRON4 MG PO (12:41)
--- NOTE | 2020-03-30 14:37 | MORECARE ---
CASE MANAGEMENT DISCHARGE SUMMARY PATIENT: MOHINI TAVERAS UNIT: [id number] ADM DATE: 03/23/20 AGE: 69 : 50 SEX: M ROOM/BED: D.4903 AUTHOR: RONA RICHARD PHYSICIAN: REFERRING PHYSICIAN: NASREEN BEE MD DATE OF SERVICE: 03/30/20 Discharge Plan Patient Name: MOHINI TAVERAS Facility: [facility]:[place] : 1950 Planned Disposition: Anticipated Discharge Date: Discharge Date: Expected LOS: Initial Reviewer: [email or web address] Initial Review Date: 03/22/2020 Generated: 03/30/20 3:37 pm DCP- Discharge Planning Updated by [email or web address]: Serena Johnson on 03/23/20 5:[address] Patient Name: MOHINI TAVERAS Admission Status: ER Accout number: [id number] Admission Date: 03-23-2020 : 1950 Admission Diagnosis:COVID-19 Attending: NASREEN BEE Current LOS: 1 Anticipated DC Date: Planned Disposition: Primary Insurance: MEDICARE A & B Discharge Planning Comments: CM met with patient via phone to complete initial dc planning assessment. Verbal consent given by patient to complete assessment. CM verified patient's address, phone number, and emergency contact phone numbers. Patient lives at home with his and is independent. States he also has daughters that live nearby who routinely assist if needed. At discharge patient plans to return home and feels this is a safe discharge. patient states that he is worried about his who also has Covid. States she has had a Kidney transplant and is fearful for her. States he has called her multiple times today to check on her. CM called Verónica at [phone] to check on her well being. CM encouraged Verónica to seek medical attention if she began to become short of breath. Verónica verbalized understanding. CM discussed availability of home health, rehab services, and medical equipment with the patient. Patient denied known discharge needs at this time. CM anticipated the need for home oxygen. Patient is in agreement with [facility] if needed. EMERY verbalized; pt declined home health services. Transportation provider at discharge will be Liane his daughter. CM will continue to follow and will assist as needed with dc plans/needs. Enrollment Services Dean: Serena Johnson DCPIA - Discharge Planning Initial Assessment Updated by [email or web address]: Serena Johnson on 03/23/20 6:43 pm * Is the patient Alert and Oriented? Yes * How many steps to enter\exit or inside your home? 0/0 * PCP Dmitry * [facility] * Preadmission Environment Home with Family * ADLs Independent * Equipment None * List name and contact numbers for known caregivers / representatives who currently or will assist patient after discharge: Verónica [phone], [phone] * Verbal permission to speak to the caregivers and representatives has been obtained from the patient. Yes * Community resources currently utilized None * Additional services required to return to the preadmission environment? Yes * Can the patient safely return to the preadmission environment? Yes * Has this patient been hospitalized within the prior 30 days at any hospital? No External [facility]iders [facility] Next Contact Date: Service Request Date: Service Type: Resolution: Reviewer: Comments: Coverage Notice Reviewer: [id number] - Serena Johnson Notice Issued Date-Time: 03/23/2020 10:00 Notice Type: Patient Choice Letter Notice Delivered To: Patient Relationship to Patient: Self Art Sales Consultant Name: Delivery Method: PHONE - Phone Kenia Days: Prior Verbal Notification: Yes Recipient Understood Notice: Yes Recipient Signature: Gaurav Haque Note Co-signed by Attending: Coverage Notice Comment: EMERY in agreement with Josh for home oxygen. Declined HH services. Last DP export: 03/23/20 5:50 Patient Name: MOHINI TAVERAS Page [id number] at 1437 All edits/amendments must be made on the electronic document DICTATION DATE: 03/30/20 1437 IT TRAINEE: BEE 03/30/20 1437 RPT#: [id number] DC DATE: STATUS: ADM IN [facility] [address] [place] [address] END OF REPORT
--- NOTE | 2020-03-30 15:42 | MORECARE ---
CASE MANAGEMENT DISCHARGE SUMMARY PATIENT: MOHINI TAVERAS UNIT: [id number] ADM DATE: 03/23/20 AGE: 69 : 50 SEX: M ROOM/BED: D.0843 AUTHOR: HILARY,DOC PHYSICIAN: REFERRING PHYSICIAN: NASREEN BEE MD DATE OF SERVICE: 03/30/20 Discharge Plan Patient Name: MOHINI TAVERAS Facility: [facility]:[place] : 1950 Planned Disposition: Anticipated Discharge Date: Discharge Date: Expected LOS: Initial Reviewer: [email or web address] Initial Review Date: 03/22/2020 Generated: 03/30/20 4:42 pm Comments DCP- Discharge Planning Updated by [email or web address]: Serena Johnson on 03/30/20 2:[address] Patient Name: MOHINI TAVERAS Admission Status: ER Accout number: [id number] Admission Date: 03-23-2020 : 1950 Admission Diagnosis:COVID-19 Attending: NASREEN BEE Current LOS: 7 Anticipated DC Date: Planned Disposition: Primary Insurance: MEDICARE A & B Discharge Planning Comments: CM spoke with pt via phone to follow up with discharge plan. Pt states he does not know how to get home, or how to afford his medications. States he has no help with his . CM spoke to patient about home health services, and [facility] [address]. Pt is in [facility] to [facility] for his oxygen services, [facility] , and [facility] [address]. Cm called Lito at [facility] at [phone] for pt, nursing o/a, and a social media developer. OSMAR spoke with Alka at [facility] on [address] for referral. Pt states he does not have a portable o2 tank at bedside, so CM called Peter at [facility] at [phone] who states she will bring the tank within the hour. Pt states he has no one to pick him up. States he can not get ahold of his children. Pt asked or assistance with a ride home. Nursing can call a taxi at [phone] when patient is ready for discharge. Pt will require a mask for transport. DC IMM explained via phone. verbalized understanding. Nursing will provide written form with discharge instructions. Cnc Maintenance Technician: Serena Johnson DCP- Discharge Planning Updated by [email or web address]: Serena Johnson on 03/23/20 5:[address] Patient Name: MOHINI TAVERAS Admission Status: ER Accout number: [id number] Admission Date: 03-23-2020 : 1950 Admission Diagnosis:COVID-19 Attending: NASREEN BEE Current LOS: 1 Anticipated DC Date: Planned Disposition: Primary Insurance: MEDICARE A & B Discharge Planning Comments: CM met with patient via phone to complete initial dc planning assessment. Verbal consent given by patient to complete assessment. CM verified patient's address, phone number, and emergency contact phone numbers. Patient lives at home with his and is independent. States he also has daughters that live nearby who routinely assist if needed. At discharge patient plans to return home and feels this is a safe discharge. patient states that he is worried about his who also has Covid. States she has had a Kidney transplant and is fearful for her. States he has called her multiple times today to check on her. CM called Verónica at [phone] to check on her well being. CM encouraged Verónica to seek medical attention if she began to become short of breath. Verónica verbalized understanding. CM discussed availability of home health, rehab services, and medical equipment with the patient. Patient denied known discharge needs at this time. CM anticipated the need for home oxygen. Patient is in agreement with [facility] if needed. EMERY verbalized; pt declined home health services. Transportation provider at discharge will be Liane his daughter. CM will continue to follow and will assist as needed with dc plans/needs. Cnc Maintenance Technician: Serena Johnson DCPIA - Discharge Planning Initial Assessment Updated by [id number]: Serena Johnson on 03/23/20 6:43 pm * Is the patient Alert and Oriented? Yes * How many steps to enter\exit or inside your home? 0/0 * PCP Dmitry * [facility] * Preadmission Environment Home with Family * ADLs Independent * Equipment None * List name and contact numbers for known caregivers / representatives who currently or will assist patient after discharge: Verónica [phone], [phone] * Verbal permission to speak to the caregivers and representatives has been obtained from the patient. Yes * Community resources currently utilized None * Additional services required to return to the preadmission environment? Yes * Can the patient safely return to the preadmission environment? Yes * Has this patient been hospitalized within the prior 30 days at any hospital? No Coverage Notice Reviewer: [id number] Johnson Notice Issued Date-Time: 03/23/2020 10:00 Notice Type: Patient Choice Letter Notice Delivered To: Patient Relationship to Patient: Self Director Audience Marketing Name: Delivery Method: PHONE - Phone Kenia Days: Prior Verbal Notification: Yes Recipient Understood Notice: Yes Recipient Signature: Med Rec Note Co-signed by Attending: Coverage Notice Comment: EMERY in agreement with Josh for home oxygen. Declined HH services. Reviewer: [id number] Johnson Notice Issued Date-Time: 03/30/2020 13:25 Notice Type: Patient Choice Letter Notice Delivered To: Patient Relationship to Patient: Self Director Audience Marketing Name: Delivery Method: PHONE - Phone Kenia Days: Prior Verbal Notification: Yes Recipient Understood Notice: Yes Recipient Signature: Med Rec Note Co-signed by Attending: Coverage Notice Comment[facility] Reviewer: [id number] Johnson Notice Issued Date-Time: 03/30/2020 13:25 Notice Type: IM Discharge Notice Notice Delivered To: Patient Relationship to Patient: Self Director Audience Marketing Name: Delivery Method: PHONE - Phone Kenia Days: Prior Verbal Notification: Yes Recipient Understood Notice: Yes Recipient Signature: Med Rec Note Co-signed by Attending: Coverage Notice Comment: dc imm delivered via phone. pt voiced understanding . nursing provided written copy Last DP export: 03/30/20 1:37 Patient Name: MOHINI TAVERAS Page [phone] at 1542 All edits/amendments must be made on the electronic document DICTATION DATE: 03/30/20 1542 EXPEDITER CLERK: BEE 03/30/20 1542 RPT#: [id number] DC DATE: STATUS: ADM IN [facility] [address] [place] [address] END OF REPORT
--- NOTE | 2020-03-30 17:37 | NUR ---
NURSE CALLS TAXI NUMBER CM LEFT FOR NURSE TO CALL AND NO ANSWER. UNABLE TO LEAvE MESSAGE.
--- NOTE | 2020-03-30 18:25 | NUR ---
NURSE GOT A HOLD OF TAXI FOR PATIENT. PROOF MACHINE OPERATOR SUPERVISOR STATES HE HAS NO RECORD OF PATIENT NEEDING A RIDE. PATIENT TO BE WHEELED DOWNSTAIRS.
== END 2020-03-30 18:38 | disposition home health service (06) | DRG 179 ==
LOC: D.ER 13:13 → D.M2 17:15 → D.EDHOLD 17:15 → OBSVTIME 17:15 → D.EDHOLD 17:15 → D.M2 21:27
PROVIDERS: Emergency Medicine; Family Medicine; Internal Medicine Pulmonary Disease; ADMIT Family Medicine; ATTEND Family Medicine
PROC: XW033E5 Introduction of Remdesivir Anti-infective into Peripheral Vein, Percutaneous Approach, New Technology Group 5 (ICD-10-PCS; principal; 2020-03-24)
DX: U07.1 COVID-19 (principal); I10 Essential (primary) hypertension; E78.5 Hyperlipidemia, unspecified; I25.10 Atherosclerotic heart disease of native coronary artery without angina pectoris; K21.9 Gastro-esophageal reflux disease without esophagitis; D64.9 Anemia, unspecified; J44.9 Chronic obstructive pulmonary disease, unspecified; N40.0 Benign prostatic hyperplasia without lower urinary tract symptoms; E87.6 Hypokalemia; G89.29 Other chronic pain; I73.9 Peripheral vascular disease, unspecified; Z79.01 Long term (current) use of anticoagulants; Z86.711 Personal history of pulmonary embolism

== ENCOUNTER 2020-10-05 20:31 | Inpatient (IN) | payer MEDICARE ==
[~2020-10-05] VITALS: Ht 177.8 cm; Wt 85.0 kg
[~2020-10-05 20:31] MED LIST changes: +CARAFATE1 G PO; +CELEXA20 MG PO; +DECADRON4 MG PO; +IPRAT-ALBUT 0.5-3 ML UPD; +NEURONTIN 300300 MG PO; +PULMICORT0.5 MG/21 INH; +VITAMIN E200 UNI1 PO; +XANAX XR0.5 MG PO
[2020-10-05 21:00] VITALS: BP 117/80
[2020-10-05 21:04] LABS: BASOPHILS 0.3 % (0-2); EOSINOPHILS 0.6 % (0-7); HEMATOCRIT 42.6 % (42.0-54.0); HEMOGLOBIN 13.6 g/dL (13.5-17.5); IMMATURE GRANULOCYTES 0.5 % (0-5); LYMPHOCYTE ABS# 1.65 10x3/uL (1.32-3.57); LYMPHOCYTES 15.2 % (15-50); MCH 29.9 pg (26.0-34.0); MCHC 31.9 g/dL (31.0-37.0); MCV 93.6 fL (80.0-100.0); MEAN PLATELET VOLUME 10.9 fL (7.4-10.4); MONOCYTES 8.3 % (2-11); NEUTROPHIL ABS# 8.17 10x3/uL (1.78-5.38); NEUTROPHILS 75.1 % (40-80); PLATELET COUNT 442 10x3/uL (130-400); RBC 4.55 10x6/uL (4.20-6.10); RDW 17.1 % (11.5-14.5); WBC 10.9 10x3/uL (4.8-10.8)
[2020-10-05 21:14] LABS: APTT 32.7 SECONDS (22.8-39.4); INR 1.16 (0.85-1.17); PROTIME 13.7 SECONDS (11.6-15.0)
[2020-10-05 21:16] LABS: CALC OSMOLALITY 278 mosm/kg (275-300); CALCIUM 9.2 mg/dL (8.5-10.1); CARBON DIOXIDE 29.5 mmol/L (21.0-32.0); CHLORIDE - SERUM 104 mmol/L (98-107); CREATININE - SERUM 1.2 mg/dL (0.6-1.3); GLUCOSE 92 mg/dL (74-106); POTASSIUM - SERUM 4.3 mmol/L (3.5-5.1); SODIUM 140 mmol/L (136-145); UREA NITROGEN 12 mg/dL (7-18); eGFR NON AFRICAN AMERICAN 64 mL/min (90-120)
[2020-10-05 21:32] LABS: ALBUMIN 3.2 g/dL (3.4-5.0); ALKALINE PHOSPHATASE 117 U/L (30-120); ALT (SGPT) 68 U/L (10-68); BILIRUBIN - TOTAL 0.35 mg/dL (0.2-1.3); CKMB 4.7 U/L (0.0-3.6); CREATINE KINASE 238 UL (21-232); MAGNESIUM - SERUM 1.9 mg/dL (1.8-2.4); PROTEIN - SERUM 7.2 g/dL (6.4-8.2); TROPONIN-I 0.056 ng/mL (0.000-0.060)
[2020-10-05 22:00] VITALS: BP 113/77
--- NOTE | 2020-10-05 22:19 | NUR ---
CRITICAL LAB [facility]UE CALLED TO ED. D-DIMER OF 2.21. EDP NAHOMY NOTIFIED, NO FURTHER ORDERS GIVEN AT THIS TIME.
[2020-10-05 23:00] VITALS: BP 121/86
[2020-10-06] MEDS ORDERED: MIRAPEX0.25 MG PO (01:11)
[2020-10-06] MEDS ORDERED: BROVANA15 MCG/2 M INH (01:16)
[2020-10-06] MEDS ORDERED: TESSALON PERLE100 MG PO (01:17)
[2020-10-06] MEDS ORDERED: ZANAFLEX4 MG PO (01:18)
[2020-10-06] MEDS ORDERED: MAGNESIUM OXID250 MG PO (01:20)
[2020-10-06] MEDS ORDERED: BETAPACE 80 MG80 MG PO (01:21)
[2020-10-06] MEDS ORDERED: BACTRIM DS TAB1 EAC1 PO (01:25)
--- NOTE | 2020-10-06 03:54 | NUR ---
REPORT RECEIVED. PT A&O WITH AT BEDSIDE. NO S/S OF DISTRESS OBSERVED. RR EVEN AND UNLABORED ON 2LPRN. ADMINSITERED MORPHINE PER EMAR ORDERS. BED LOCKED AND LOWERED, CL IN REACH. NS AT 75CC/HR. ASSESSMENT COMPLETE. WILL CONT POC.
[2020-10-06 05:09] VITALS: BP 119/83; BP 99/80; BMI 26.1
[2020-10-06 05:49] LABS: BASOPHILS 0.5 % (0-2); EOSINOPHILS 1.4 % (0-7); HEMATOCRIT 38.7 % (42.0-54.0); HEMOGLOBIN 12.4 g/dL (13.5-17.5); IMMATURE GRANULOCYTES 0.7 % (0-5); LYMPHOCYTE ABS# 1.87 10x3/uL (1.32-3.57); LYMPHOCYTES 18.8 % (15-50); MCH 29.8 pg (26.0-34.0); MEAN PLATELET VOLUME 10.9 fL (7.4-10.4); MONOCYTES 11.7 % (2-11); NEUTROPHIL ABS# 6.66 10x3/uL (1.78-5.38); NEUTROPHILS 66.9 % (40-80); PLATELET COUNT 402 10x3/uL (130-400); RBC 4.16 10x6/uL (4.20-6.10); RDW 17.3 % (11.5-14.5)
[2020-10-06 06:17] LABS: CALC OSMOLALITY 278 mosm/kg (275-300); CALCIUM 8.8 mg/dL (8.5-10.1); CARBON DIOXIDE 28.4 mmol/L (21.0-32.0); CHLORIDE - SERUM 107 mmol/L (98-107); CKMB 4.8 U/L (0.0-3.6); CREATINE KINASE 185 UL (21-232); CREATININE - SERUM 1.1 mg/dL (0.6-1.3); GLUCOSE 82 mg/dL (74-106); MAGNESIUM - SERUM 2.1 mg/dL (1.8-2.4); PHOSPHOROUS 3.2 mg/dL (2.5-4.9); POTASSIUM - SERUM 4.3 mmol/L (3.5-5.1); SODIUM 140 mmol/L (136-145); THYROID STIMULATING HORMONE 0.85 uIU/mL (0.36-3.74); TROPONIN-I 0.018 ng/mL (0.000-0.060); UREA NITROGEN 14 mg/dL (7-18); eGFR NON AFRICAN AMERICAN 70 mL/min (90-120)
[2020-10-06 08:00] VITALS: BP 108/90
[2020-10-06 11:07] VITALS: BP 102/71
[2020-10-06 11:36] LABS: CKMB 4.1 U/L (0.0-3.6); CREATINE KINASE 191 UL (21-232); TROPONIN-I < 0.017 ng/mL (0.000-0.060)
--- NOTE | 2020-10-06 13:47 | NUR ---
DR. OSIRIS GOLDMAN AT [facility] WITH UROLOGY WHO PERFORMED A TURP ON SATURDAY FOR THIS PATIENT WAS CONTACTED BY THE NURSE TO VERIFY WHAT HE WANTED DONE WITH THE LIANG. HE INSTRUCTED TO KEEP LIANG IN FOR NOW. HE GAVE NURSE HIS PERSONAL NUMBER TO CHECK BACK WITH HIM WHEN PATIENT IS MORE STABLE. HE SUGGESTED AGAINST COLLECTING UA BECAUSE IT WOULD BE ABNORMAL AND PT WAS COVERED WITH THE APPROPRIATE ANTIBIOTICS WHEN HE GOT THE TURP. NURSE INFORMED SHIRA KING AND SHE ORDERED TO DC UA AND THANKED NURSE FOR INFORMATION. DR. GOLDMAN'S NUMBER IS [phone]. NURSE WILL CONTINUE TO MONITOR PATIENT CONDITION.
--- NOTE | 2020-10-06 15:27 | NUR ---
PT CONVERTED TO SINUS CUBA 50S AT 1510
[2020-10-06 16:04] VITALS: BP 98/66
[2020-10-06 17:42] LABS: CKMB 3.5 U/L (0.0-3.6); CREATINE KINASE 171 UL (21-232); TROPONIN-I < 0.017 ng/mL (0.000-0.060)
--- NOTE | 2020-10-06 19:20 | NUR ---
REPORT RECEIVED, PT A&O, UP IN BED WITH AT BEDSIDE. NO S/S OF DISTRESS OBSERVED. RR EVEN AND UNLABORED ON 8LHF. PAIN /. BED LOCKED AND LOWERED, CL IN REACH. ASSESSMENT COMPLETE. WILL CONT POC.
[2020-10-06 20:00] VITALS: BP 116/82
--- NOTE | 2020-10-06 20:45 | NUR ---
SUPERVISOR RUBBER COVERING REPORTED THAT PT WAS SOB AND LABORED. RESPONDED TO PTS ROOM, PT USING NECK AND ACCESSORY MUSCLES WITH LABORED BREATHING. O2 SAT 97% ON 8LHF. NOTIFIED RT WHO RESPONDED TO THE ROOM. CONTACTED CARDIOLGY; SPOKE WITH JOHNNY MEDINA APN. ORDERS RECEIVED FRO STAT CXR, BLOOD GASSES, AND DDIMER WELL A ONE TIME DOSE OF 40MG LASIX.
--- NOTE | 2020-10-06 21:42 | NUR ---
NOTIFIED RT OF STAT BLOOD GAS. CALLED XRAY TWICE TO NOTIFY OF STAT CXR WITH NO ANSWER.
--- NOTE | 2020-10-06 23:00 | NUR ---
PTS BREATHING EFFORTS HAVE EASED. PT REPORTS NOT FEELING SHORT OF BREATH. O2 SAT 97% ON 8LHF. AUSCULTATION OF LUNGS STILL SOUND LIKE THERE IS FLUID PRESENT BUT HAVE IMPROVED FROM PREVIOUS AUSCULTATION DURING PTS ACUTE DISTRESS. NO S/S OF DISTRESS NOTED AT THIS TIME. RR EVEN & UNLABORED.
[2020-10-07] VITALS: BP 104/62
--- NOTE | 2020-10-07 02:40 | NUR ---
RESPONDED TO PTS ROOM. PT STATED "I DONT KNOW WHATS WRONG, BUT IF DONT FEEL RIGHT. SOMETHING IS WRONG." V/S STABLE. O2 98% ON 8LHF. PT HAS COPD. CONTACT RT ABOUT WEANING PTS O2. PTS O2 SAT 91-92% ON 3L NOW. CONTACTED ARMANDO MTZ APN. ORDERS RECEIVED TO D/C FLUIDS AND CONSULT YUSRA IN THE AM.
[2020-10-07 04:00] VITALS: BP 119/71
[2020-10-07 06:28] LABS: ANION GAP 15.5 mmol/L (8-16); BASOPHILS 0.4 % (0-2); CARBON DIOXIDE 29.1 mmol/L (21.0-32.0); CREATININE - SERUM 1.2 mg/dL (0.6-1.3); EOSINOPHILS 1.6 % (0-7); HEMATOCRIT 41.5 % (42.0-54.0); HEMOGLOBIN 13.2 g/dL (13.5-17.5); IMMATURE GRANULOCYTES 0.6 % (0-5); LYMPHOCYTE ABS# 1.65 10x3/uL (1.32-3.57); LYMPHOCYTES 14.4 % (15-50); MAGNESIUM - SERUM 2.1 mg/dL (1.8-2.4); MCH 29.9 pg (26.0-34.0); MCHC 31.8 g/dL (31.0-37.0); MCV 93.9 fL (80.0-100.0); MEAN PLATELET VOLUME 11.2 fL (7.4-10.4); MONOCYTES 10.1 % (2-11); NEUTROPHIL ABS# 8.35 10x3/uL (1.78-5.38); NEUTROPHILS 72.9 % (40-80); PLATELET COUNT 412 10x3/uL (130-400); POTASSIUM - SERUM 4.6 mmol/L (3.5-5.1); RBC 4.42 10x6/uL (4.20-6.10); RDW 17.5 % (11.5-14.5); WBC 11.5 10x3/uL (4.8-10.8)
[2020-10-07 07:08] LABS: PHOSPHOROUS 4.1 mg/dL (2.5-4.9)
[2020-10-07 09:22] VITALS: BP 117/70
[2020-10-07] MEDS ORDERED: MS CONTIN15 MG PO (09:35)
[2020-10-07] MEDS ORDERED: CLONIDINE HCL0.1 MG PO (09:36)
[2020-10-07] MEDS ORDERED: MYSOLINE 50 MG50 MG PO (09:38)
[2020-10-07] MEDS ORDERED: PROTONIX40 MG PO (09:39)
[2020-10-07] MEDS ORDERED: JANTOVEN5 MG PO (09:40)
[2020-10-07] MEDS ORDERED: SINGULAIR10 MG PO (09:42)
[2020-10-07] MEDS ORDERED: IPRAT-ALBUT 0.5-3 ML UPD (09:43)
[2020-10-07] MEDS ORDERED: PULMICORT0.5 MG/21 INH (09:43)
[2020-10-07] MEDS ORDERED: XANAX0.5 MG PO (09:45)
[2020-10-07] MEDS ORDERED: TESSALON PERLE100 MG PO (09:46)
--- NOTE | 2020-10-07 11:09 | CN ---
PATIENT NAME:MOHINI TAVERAS MEDICAL RECORD: [id number] : 50 LOCATION:D. D.2117 ADMIT DATE: 10/06/20 ACCOUNT: [id number] CONSULTING PHYSICIAN: TANVIR MONTE MD REFERRING PHYSICIAN: ALEX GALVAN MD DATE OF CONSULTATION: 10/06/2020 HISTORY OF PRESENT ILLNESS: A 70-year-old gentleman with a history of coronary artery disease, status post intervention via Dr. Mcintosh. Actually, had TURP yesterday. He is being evaluated in the office for syncope prior to this and fortuitously had a 30-day event monitor. He had onset of atrial fibrillation with RVR postoperatively while at home when he had a syncopal episode. Also, probably a little vascular volume depleted postoperatively. We are asked to see him concerning his cardiovascular status. PAST MEDICAL HISTORY: Includes; 1. History of coronary artery disease. 2. Hypertension. 3. Hyperlipidemia. 4. Atrial fibrillation, recent onset. MEDICATIONS: Include Flomax 0.4 mg p.o. every day, Brovana inhaler 50 mcg b.i.d., DuoNeb 3 mL every 6 hours, Plavix 75 every day, sotalol 80 b.i.d., atorvastatin 10 mg p.o. every day, Niaspan 500 mg at bedtime, Neurontin 900 t.i.d., Celexa 20 every day, Xanax 0.5 every day, Mirapex 0.25 mcg every day, morphine sulfate 15 mg p.o. b.i.d., Imitrex 100 mg p.o. every day, Ambien 10 mg p.o. at bedtime, montelukast 10 mg p.o. every day. SOCIAL HISTORY: Nonsmoker, nondrinker. Easily takes care of all his ADLs. Typically stays quite active, walking, etc. PHYSICAL EXAMINATION: GENERAL: No acute distress, appears stated age, somewhat distant with conversation. VITAL SIGNS: Blood pressure 102/71, pulse 135, irregular. HEENT: Normocephalic, atraumatic. NECK: No JVD or bruit. HEART: Regular, tachycardic, II/ systolic ejection murmur. LUNGS: Diminished breath sounds. ABDOMEN: Soft and nontender. EXTREMITIES: Pulses 2+. No edema. NEUROLOGIC: Grossly intact. IMPRESSION AND PLAN: Onset of atrial fibrillation with rapid ventricular rate, syncope. The patient started on sotalol. We will give one dose of digoxin, pressure is somewhat borderline for a calcium channel blockade at this point, also mild diuresis. Left ventricular function has been normal, so may be a component of diastolic dysfunction with elevated filling pressures. Further recommendations based on the above. TRANSINT:[id number] Voice Confirmation ID: [id number] DOCUMENT ID: [id number] CONSULT REPORT [id number] MOHINI TAVERAS GREGORY A MD at 1109 CC: [id number] DICTATION DATE: 10/06/20 1607 RESOURCE CONSERVATIONIST: 10/06/20 1755 ADM IN [id number] [place] [address]
[2020-10-07 13:03] VITALS: Ht 177.8 cm; Wt 85.0 kg
--- NOTE | 2020-10-07 13:50 | NUR ---
IV RESTARTED TO RIGHT FA WITH 22 GAUGE X 1 STICK AND FLUSHED WITH NS. LINE IS PATENT.
[2020-10-07 14:56] VITALS: BP 109/64
[2020-10-07 18:08] VITALS: BP 106/75
--- NOTE | 2020-10-07 19:15 | NUR ---
RECEIVED REPORT, WILL ASSUME CARE OF PT, ASKING FOR PAIN MEDS, WILL PROVIDE ORDERED, ASKING FOR ANOTHER PILLOW, PROVIDED, DENIES ANY OTHER NEEDS AT THIS TIME, BED IS LOW, SRX2, CALL LIGHT IN REACH, FAMILY AT BEDSIDE, WILL CONTINUE PLAN OF CARE
[2020-10-07 21:42] VITALS: BP 95/57
[2020-10-08 01:19] VITALS: BP 102/63
[2020-10-08 05:48] VITALS: BP 110/74
--- NOTE | 2020-10-08 07:38 | NUR ---
INITIAL ROUNDS- PT RESTING COMFORTABLY IN BED, A/O X4, RESP EVEN AND NONLABORED ON 3L HF. RT AC INFUSING BUMEX AT 2.5 AND NS AT 30CC/HR. LIANG DRAINIG YELLOW URINE TO GRAVITY. SB -55 ON TELE. SCDS ON BILAT. PT DENIES ANY NEEDS AT THIS TIME. FAMILY MEMBER AT BEDSIDE, CALL LIGHT IN REACH, WILL CONTINUE PLAN OF CARE.
[2020-10-08 07:51] LABS: BASOPHILS 0.1 % (0-2); EOSINOPHILS 0.1 % (0-7); HEMATOCRIT 42.8 % (42.0-54.0); HEMOGLOBIN 14.1 g/dL (13.5-17.5); IMMATURE GRANULOCYTES 0.3 % (0-5); LYMPHOCYTE ABS# 1.11 10x3/uL (1.32-3.57); LYMPHOCYTES 8.2 % (15-50); MCHC 32.9 g/dL (31.0-37.0); MONOCYTES 3.8 % (2-11); NEUTROPHIL ABS# 11.91 10x3/uL (1.78-5.38); NEUTROPHILS 87.5 % (40-80); PLATELET COUNT 451 10x3/uL (130-400); RDW 16.2 % (11.5-14.5); WBC 13.6 10x3/uL (4.8-10.8)
[2020-10-08 07:52] LABS: MCV 91.1 fL (80.0-100.0)
[2020-10-08 08:00] LABS: ANION GAP 11.2 mmol/L (8-16); CALCIUM 9.4 mg/dL (8.5-10.1); CARBON DIOXIDE 33.4 mmol/L (21.0-32.0); CREATININE - SERUM 1.2 mg/dL (0.6-1.3); MAGNESIUM - SERUM 1.9 mg/dL (1.8-2.4); PHOSPHOROUS 3.3 mg/dL (2.5-4.9)
[2020-10-08 08:03] LABS: POTASSIUM - SERUM 3.6 mmol/L (3.5-5.1)
[2020-10-08 08:14] VITALS: BP 130/87
[2020-10-08 12:24] VITALS: BP 138/78
--- NOTE | 2020-10-08 12:57 | NUR ---
RT FA IV D/C DUE TO REDNESS AND TERNDERNESS, D/C WITH CATHETER TIP INTACT. NEW 22G IV STARTED TO RT FA X2 STICKS, PT TOLERATED WELL.
--- NOTE | 2020-10-08 15:24 | EC ---
PATIENT:MOHINI TAVERAS DATE OF SERVICE: 10/06/20 SEX: M MEDICAL RECORD: [id number] DATE OF : 50 LOCATION:D.M2 D.211 AGE OF PATIENT: 70 ADMISSION DATE: 10/06/20 REFERRING PHYSICIAN: INTERPRETING PHYSICIAN: LOW CLARK MD ECHOCARDIOGRAM REPORT ECHO CHARGES 4 ECHO COMPLETE Date: 10/07/20 CLINICAL DIAGNOSIS: AFIB ECHOCARDIOGRAPHIC MEASUREMENTS (adult normal given) AC root (d.<3.7cm) 3.3 cm LV Septum d (<1.2 cm> 1.1 cm Valve Excursion 1.7 cm LV Septum (systole) 1.4 cm Left Atria (s.<4.0cm> 2.8 cm LVPW d(<1.2cm) 0.9 cm RV (d.<2.3cm) 2.9 cm LVPW (sytole) 1.2 cm LV diastole(<5.6CM) 4.7 cm MV E-F(>70mm/sec) cm LV systole 3.7 cm LVOT Diameter 1.8 cm MV exc.(>10mm) 1.8 cm Est.ejection fraction (50-75%) % DOPPLER: LVIT cm/sec A 70 cm/sec E 75 cm/sec LA cm/sec RVSP 20 mmHg LVOT 62 cm/sec AOP1/2T m/s Asc. Ao 101 cm/sec RVOT 65 cm/sec RA cm/sec PA 79 cm/sec AV Gradient Peak 4.1 mmHg AV Mean 2.3 mmHg AV Area 1.4 cm MV Gradient Peak 2.2 mmHg MV Mean 1.0 mmHg MV Area cm COMMENTS: Display Director: Hank LUKE Paid Search Analyst: 2 Dr. Mcintosh TAPE# Pericardial Effusion N DATE OF SERVICE: CLINICAL INDICATION: Atrial fibrillation. INTERPRETATION: Technically difficult study. FINDINGS: Overall, normal left ventricular chamber size and contractile function, ejection fraction of 55%. Left atrial chamber size appears normal. Right atrial and right ventricular chamber size and function is not well visualized. Aortic valve is not well visualized, but appeared normal. No ECHOCARDIOGRAM REPORT [id number] MOHINI TAVERAS aortic stenosis/regurgitation. Mitral valve appears normal. No mitral regurgitation. Tricuspid valve not well visualized, but appeared normal. Trace tricuspid regurgitation. Pulmonic valve not well visualized. No pulmonary insufficiency. No pericardial effusion visualized. IMPRESSION: Technically difficult study, overall normal left ventricular chamber size and contractile function with an ejection fraction of 55%. TRANSINT:[id number] Voice Confirmation ID: [id number] DOCUMENT ID: [id number] LOW CLARK MD at 1524 CC: [id number] DICTATION DATE: 10/08/20 1121 SALESPERSON MEN'S HATS: 10/08/20 1130 ADM IN [id number] [place] [address]
--- NOTE | 2020-10-08 16:47 | NUR ---
GAVE 1MG OF DILAUDID FOR PAIN LEVEL OF 7/10. EMPTIED 500CC OF URINE OUT OF LIANG CATHETER, PT DENIES ANY OTHER NEEDS AT THIS TIME. CALL LIGHT IN REACH.
[2020-10-08 17:26] VITALS: BP 117/70
--- NOTE | 2020-10-08 19:09 | NUR ---
RECEIVED REPORT, WILL ASSUME CARE OF PT, TALKING ON CELL PHONE, DENIES ANY NEEDS AT THIS TIME, BED IS LOW, SRX2, CALL LIGHT IN REACH, WILL CONTINUE PLAN OF CARE
--- NOTE | 2020-10-08 19:42 | NUR ---
COLLECTED UA TOOK TO LAB
[2020-10-08 20:37] LABS: BILIRUBIN NEGATIVE (NEGATIVE); KETONE NEGATIVE (NEGATIVE); NITRITE NEGATIVE (NEGATIVE); UROBILINOGEN NORMAL mg/dL (< 2)
[2020-10-08 20:38] LABS: WHITE CELLS - URINE 0-5 HPF (0-1)
[2020-10-08 20:39] LABS: BACTERIA FEW HPF (NONE SEEN); SQUAMOUS EPITHELIAL NONE SEEN HPF (0-4)
[2020-10-08 21:49] VITALS: BP 101/70
[2020-10-09 02:15] VITALS: BP 94/62
[2020-10-09 06:08] VITALS: BP 108/68
[2020-10-09 06:29] LABS: BASOPHILS 0.1 % (0-2); EOSINOPHILS 0 % (0-7); HEMATOCRIT 43.6 % (42.0-54.0); HEMOGLOBIN 14.6 g/dL (13.5-17.5); IMMATURE GRANULOCYTES 0.4 % (0-5); LYMPHOCYTE ABS# 1.45 10x3/uL (1.32-3.57); LYMPHOCYTES 9.3 % (15-50); MCH 30.3 pg (26.0-34.0); MCHC 33.5 g/dL (31.0-37.0); MCV 90.5 fL (80.0-100.0); MEAN PLATELET VOLUME 11.5 fL (7.4-10.4); MONOCYTES 7.7 % (2-11); NEUTROPHIL ABS# 12.88 10x3/uL (1.78-5.38); NEUTROPHILS 82.5 % (40-80); PLATELET COUNT 479 10x3/uL (130-400); RBC 4.82 10x6/uL (4.20-6.10); RDW 16.2 % (11.5-14.5); WBC 15.6 10x3/uL (4.8-10.8)
[2020-10-09 06:42] LABS: ANION GAP 10.5 mmol/L (8-16); CALCIUM 9.5 mg/dL (8.5-10.1); CARBON DIOXIDE 32.8 mmol/L (21.0-32.0); CREATININE - SERUM 1.3 mg/dL (0.6-1.3); MAGNESIUM - SERUM 1.8 mg/dL (1.8-2.4); PHOSPHOROUS 3.6 mg/dL (2.5-4.9); POTASSIUM - SERUM 3.3 mmol/L (3.5-5.1)
--- NOTE | 2020-10-09 07:35 | NUR ---
INITIAL ROUNDS- PT RESTING COMFORTABLY IN BED, STATES THAT AFTER GETTING BREATHING TREATMENT HE DOES NOT FEEL GOOD. PT A/O X4, RESP EVEN AND NONLABORED ON 3HF. RT FA IV INFUSING BUMEX AT 2.5CC/HR. SR-64 ON TELE. LIANG DRAINING YELLOW URINE TO GRAVITY. PROVIDED PT WITH HOT COFFEE. ALL NEEDS MET, COLLECTED SPUTUM CULTURE AND TAKEN TO LAB. SPOUSE AT BEDSIDE, CALL LIGHT IN REACH, WILL CONTINUE PLAN OF CARE.
[2020-10-09 09:09] VITALS: BP 118/77
--- NOTE | 2020-10-09 11:12 | NUR ---
1MG OF DILAUDID FOR PAIN LEVEL OF 7/10. ALL NEEDS MET, CALL LIGHT IN REACH.
[2020-10-09 12:17] VITALS: BP 116/78
[2020-10-09 16:33] VITALS: BP 128/83
--- NOTE | 2020-10-09 19:30 | NUR ---
RECEIVED REPORT, WILL ASSUME CARE OF PT, DENIES ANY NEEDS AT THIS TIME, BED IS LOW, SRX2, CALL LIGHT IN REACH, WILL CONTINUE PLAN OF CARE
[2020-10-09 21:39] VITALS: BP 126/77
[2020-10-10 04:13] VITALS: BP 119/66
--- NOTE | 2020-10-10 06:14 | NUR ---
I have reviewed this patient and I concur with the Shift Assessment completed by the Licensed Practical Nurse today this shift.
[2020-10-10 07:14] LABS: BASOPHILS 0.1 % (0-2); EOSINOPHILS 0 % (0-7); HEMATOCRIT 46.6 % (42.0-54.0); IMMATURE GRANULOCYTES 0.5 % (0-5); LYMPHOCYTE ABS# 1.51 10x3/uL (1.32-3.57); LYMPHOCYTES 8.3 % (15-50); MCH 30.7 pg (26.0-34.0); MCHC 34.3 g/dL (31.0-37.0); MCV 89.4 fL (80.0-100.0); MEAN PLATELET VOLUME 11.1 fL (7.4-10.4); MONOCYTES 7.7 % (2-11); NEUTROPHIL ABS# 15.22 10x3/uL (1.78-5.38); NEUTROPHILS 83.4 % (40-80); PLATELET COUNT 521 10x3/uL (130-400); RBC 5.21 10x6/uL (4.20-6.10); RDW 16.5 % (11.5-14.5); WBC 18.3 10x3/uL (4.8-10.8)
[2020-10-10 07:36] LABS: ANION GAP 12.5 mmol/L (8-16); CARBON DIOXIDE 31.8 mmol/L (21.0-32.0); CREATININE - SERUM 1.5 mg/dL (0.6-1.3); MAGNESIUM - SERUM 1.9 mg/dL (1.8-2.4); POTASSIUM - SERUM 4.3 mmol/L (3.5-5.1)
[2020-10-10 07:37] LABS: PHOSPHOROUS 4.7 mg/dL (2.5-4.9)
[2020-10-10 09:07] LABS: INR 1.21 (0.85-1.17); PROTIME 14.2 SECONDS (11.6-15.0)
[2020-10-10 09:19] VITALS: BP 133/85
--- NOTE | 2020-10-10 09:34 | NUR ---
BLADDER TRAINING STARTED, CLAMPED LIANG CATHETER AT THIS TIME. INSTRUCTED PT TO CALL WHEN HE GETS THE URGE TO URINATE.
--- NOTE | 2020-10-10 10:24 | NUR ---
PT CALLED NURSE INTO ROOM STATED THAT HE FELT URGE TO URINATE. LIANG UNCLAMPED AT THIS TIME.
--- NOTE | 2020-10-10 13:03 | NUR ---
Nutrition Reassessment/Follow-up: Eating well; ate 100% of breakfast this AM. Denies N/V/C/D. Diet: Cardiac PO intake: 89% avg x 7 meals Wt: 187# (10/08) Last BM: 10/09 Labs reviewed Meds noted: Florajen, Protonix, Solumedrol, Bumex, Carafate, electrolyte protocol -Nutrition needs unchanged from initial assessment. -RD will follow up within 7 days if pt still admitted.
--- NOTE | 2020-10-10 18:30 | NUR ---
1MG OF DILAUDID GIVEN FOR PAIN LEVEL OF 8/10, ALSO REMOVED LIANG CATHETER WITH TIP INTACT PER [place] ASKEW. IF PT IS UNABLE TO URINATE IN/OUT CATH CAN BE DONE. PT TOLERATED WELL.
--- NOTE | 2020-10-10 19:25 | NUR ---
RECIEVED UP IN BED WITH EYES OPEN AND TV ON. ALERT AND ORIENTED X4. REQUIRES ASSIT TO GET OOB. IV TO RT FA WITH BUMEX AT 2.5CC/HR. TELEMETRY IN PLACE. DENIES ANY NEEDS AT THIS TIME.
[2020-10-10 20:00] VITALS: BP 111/77
[2020-10-11] VITALS: BP 127/83
[2020-10-11 04:00] VITALS: BP 117/89
[2020-10-11 05:45] LABS: BASOPHILS 0.1 % (0-2); EOSINOPHILS 0 % (0-7); HEMATOCRIT 47.2 % (42.0-54.0); HEMOGLOBIN 16.3 g/dL (13.5-17.5); IMMATURE GRANULOCYTES 0.6 % (0-5); LYMPHOCYTE ABS# 1.87 10x3/uL (1.32-3.57); LYMPHOCYTES 10.1 % (15-50); MCH 30.6 pg (26.0-34.0); MCHC 34.5 g/dL (31.0-37.0); MCV 88.7 fL (80.0-100.0); MEAN PLATELET VOLUME 11.1 fL (7.4-10.4); MONOCYTES 9.4 % (2-11); NEUTROPHIL ABS# 14.73 10x3/uL (1.78-5.38); NEUTROPHILS 79.8 % (40-80); PLATELET COUNT 512 10x3/uL (130-400); RBC 5.32 10x6/uL (4.20-6.10); RDW 16.3 % (11.5-14.5); WBC 18.5 10x3/uL (4.8-10.8)
[2020-10-11 05:46] LABS: INR 1.32 (0.85-1.17); PROTIME 15.2 SECONDS (11.6-15.0)
[2020-10-11 06:15] LABS: ALBUMIN 3.4 g/dL (3.4-5.0); ANION GAP 13.7 mmol/L (8-16); BILIRUBIN - TOTAL 0.5 mg/dL (0.2-1.3); CALCIUM 9.4 mg/dL (8.5-10.1); CREATININE - SERUM 1.5 mg/dL (0.6-1.3); MAGNESIUM - SERUM 1.9 mg/dL (1.8-2.4); POTASSIUM - SERUM 3.7 mmol/L (3.5-5.1); PROTEIN - SERUM 8.1 g/dL (6.4-8.2)
--- NOTE | 2020-10-11 07:55 | NUR ---
AM ROUNDING DONE WITH FEMALE IN CHAIR AT BEDSIDE. ON 4L PER HIGH FLOW. ON HEAR MONITOR. BILATERAL SCD ARE ON AND IN USE. RIGHT FA PIV SEEN WITH BUMEX INFUSING AT 2.5 CC. DENIES NEEDS AT THIS TIME. CALL LIGHT IN USE.
[2020-10-11 08:00] VITALS: BP 124/73
--- NOTE | 2020-10-11 09:17 | NUR ---
PAIN TO LEFT HIP 7/10, DILAUDID GIVEN.
[2020-10-11 11:30] VITALS: BP 126/78
--- NOTE | 2020-10-11 13:31 | NUR ---
REHAB PRESCREEN RECEIVED. AFTER AUDITING THE CHART, PATIENT APPEARS TO BE TOO HIGH FUNCTIONING FOR INPATIENT REHAB. MAY BENEFIT FROM ASSISTIVE DEVICE AND MAYBE HOME HEALTH. THANK YOU FOR THE REFERRAL ESTELA NEAL RN CLINICAL LIAISON, INPATIENT REHAB.
--- NOTE | 2020-10-11 13:45 | NUR ---
SITTING ON SIDE OF BED WITH NO COMPLAINTS AT PRESENT. WILL CONTINUE TO FOLLOW FOR ANY NEEDS.
[2020-10-11 15:00] VITALS: BP 127/88
--- NOTE | 2020-10-11 15:14 | NUR ---
TRANSFER FROM ICU BY BED. OREINTED TO ROOM. CALL LIGHT IN REACH. WILL CONT. PLAN OF CARE.
--- NOTE | 2020-10-11 19:49 | NUR ---
RECIEVED UP IN BED WITH EYES OPEN AND TV ON. ALERT AND ORIENTED. UP WITH ASSIST TO B/R. IV TO RT FA. O2 @ 4 LITERS PER N/C. DENIES AANY NEEDS AT THIS TIME.
[2020-10-11 20:00] VITALS: BP 139/81
--- NOTE | 2020-10-11 21:42 | NUR ---
WHEN ATTEMPTING TO FLUSH IV WAS INFILTRATED WITH HARDENED AREA AROUND IT. D/C'D IV AND RESTARTED 22GA TO POSTERIOR RT ARM. CONT TO RECIEVE BUMEX 2.5CC/HR.
[2020-10-12] VITALS: BP 118/84
[2020-10-12 04:00] VITALS: BP 116/81
[2020-10-12 06:18] LABS: HEMATOCRIT 47.5 % (42.0-54.0); HEMOGLOBIN 16.3 g/dL (13.5-17.5); LYMPHOCYTE ABS# 2.08 10x3/uL (1.32-3.57); MCH 30.6 pg (26.0-34.0); MCHC 34.3 g/dL (31.0-37.0); MCV 89.3 fL (80.0-100.0); MEAN PLATELET VOLUME 11.5 fL (7.4-10.4); PLATELET COUNT 583 10x3/uL (130-400); RBC 5.32 10x6/uL (4.20-6.10); RDW 16.3 % (11.5-14.5); WBC 21.8 10x3/uL (4.8-10.8)
[2020-10-12 06:19] LABS: INR 1.37 (0.85-1.17); PROTIME 15.6 SECONDS (11.6-15.0)
[2020-10-12 06:34] LABS: ALBUMIN 3.4 g/dL (3.4-5.0); ANION GAP 12.6 mmol/L (8-16); BILIRUBIN - TOTAL 0.48 mg/dL (0.2-1.3); CALCIUM 9.3 mg/dL (8.5-10.1); CARBON DIOXIDE 31.5 mmol/L (21.0-32.0); CREATININE - SERUM 1.6 mg/dL (0.6-1.3); MAGNESIUM - SERUM 1.9 mg/dL (1.8-2.4); PROTEIN - SERUM 8.1 g/dL (6.4-8.2)
[2020-10-12 06:35] LABS: POTASSIUM - SERUM 3.1 mmol/L (3.5-5.1)
[2020-10-12 06:56] LABS: EOSINOPHILS 1 % (0-7); LYMPHOCYTES 11 % (15-50); MONOCYTES 7 % (2-11); NEUTROPHILS 81 % (40-80); PLATELET ESTIMATE INCREASED
--- NOTE | 2020-10-12 07:33 | NUR ---
AM ROUNDING DONE WITH PATIENT SITTING ON SIDE OF BED ON CELL PHONE. ON 3L HIGH FLOW. RIGHT FA SEEN WITH BUMEX INFUSING AT 2.5 CC/HR. BILATERAL SCD ARE OFF AT PRESENT TIME. AT BEDSIDE IN CHAIR. ON HEART MONITOR. WBC IS UP THIS AM. WILL CONTINUE TO FOLLOW AND ASSESS FOR NEEDS. CALL LIGHT IN USE.
[2020-10-12 08:00] VITALS: BP 134/81
--- NOTE | 2020-10-12 08:58 | NUR ---
POTASSIUM COVERED PER PROTOCOL AND LAB RE-ORDERED FOR 1300.
[2020-10-12 12:00] VITALS: BP 142/95
--- NOTE | 2020-10-12 12:36 | NUR ---
PATIENT IS SITTING UP IN CHAIR AT THIS TIME EATING LUNCH.
--- NOTE | 2020-10-12 13:15 | NUR ---
22 G TO LEFT HAND PER THIS NURSE X 1 STICK.
--- NOTE | 2020-10-12 14:48 | NUR ---
BED LINENS CHANGED PATIENT IS SITTING UP IN CHAIR..
--- NOTE | 2020-10-12 15:03 | NUR ---
DILAUDID IV FELL OF EMAR. NEW ORDERS PER LAWSON AZAR EUCEDA.
--- NOTE | 2020-10-12 15:10 | NUR ---
RATES PAIN 6/10 TO HIP. DILAUDID GIVEN SLOW IVP PAST MIXED WITH NS.
[2020-10-12 15:30] VITALS: BP 120/84
--- NOTE | 2020-10-12 20:47 | NUR ---
RECIEVED LAYING IN BED WITH EYES CLOSED. O2@ [address] L[address] PER NC IN PLACE. AROUSES TO VERBAL STIMULI. DENIES ANY NEEDS AT THIS TIME.
[2020-10-12 21:18] VITALS: BP 136/85
[2020-10-13 01:04] VITALS: BP 117/78
[2020-10-13 04:18] VITALS: BP 135/82
[2020-10-13 07:34] LABS: BASOPHILS 0.2 % (0-2); EOSINOPHILS 0.4 % (0-7); HEMATOCRIT 49.1 % (42.0-54.0); HEMOGLOBIN 16.7 g/dL (13.5-17.5); IMMATURE GRANULOCYTES 1.7 % (0-5); LYMPHOCYTE ABS# 2.69 10x3/uL (1.32-3.57); LYMPHOCYTES 15.1 % (15-50); MCH 30.5 pg (26.0-34.0); MCV 89.8 fL (80.0-100.0); MEAN PLATELET VOLUME 11.6 fL (7.4-10.4); MONOCYTES 13.5 % (2-11); NEUTROPHIL ABS# 12.26 10x3/uL (1.78-5.38); NEUTROPHILS 69.1 % (40-80); PLATELET COUNT 578 10x3/uL (130-400); RBC 5.47 10x6/uL (4.20-6.10); RDW 16.5 % (11.5-14.5); WBC 17.8 10x3/uL (4.8-10.8)
[2020-10-13 07:35] LABS: PROTIME 20.1 SECONDS (11.6-15.0)
[2020-10-13 07:36] LABS: INR 1.88 (0.85-1.17)
[2020-10-13 07:51] LABS: ALBUMIN 3.5 g/dL (3.4-5.0); ANION GAP 11.3 mmol/L (8-16); BILIRUBIN - TOTAL 0.37 mg/dL (0.2-1.3); CALCIUM 9.7 mg/dL (8.5-10.1); CARBON DIOXIDE 32.9 mmol/L (21.0-32.0); CREATININE - SERUM 1.4 mg/dL (0.6-1.3); MAGNESIUM - SERUM 2.1 mg/dL (1.8-2.4); POTASSIUM - SERUM 3.2 mmol/L (3.5-5.1); PROTEIN - SERUM 8.2 g/dL (6.4-8.2)
[2020-10-13 08:14] VITALS: BP 122/86
[2020-10-13] MEDS ORDERED: MULTAQ400 MG PO (08:47)
[2020-10-13] MEDS ORDERED: CEPHALEXIN500 M1 PO (08:49)
[2020-10-13] MEDS ORDERED: ADOXA100 MG PO (08:50)
[2020-10-13] MEDS ORDERED: PREDNISONE20 MG PO (08:50)
--- NOTE | 2020-10-13 13:30 | NUR ---
PT'S DISCHARGE INSTRUCTIONS REVIEWED AND SIGNED. BOTH IV'S OUT AND TELEMETRY REMOVED. FAMILY IN ROOM FOR TRANSPORT HOME.
--- NOTE | 2020-10-13 13:52 | NUR ---
walked 250 feet cga
--- NOTE | 2020-10-13 16:09 | NUR ---
OT NOTE: PT COMPLETED BED MOB WITH SPV. PT COMPLETED ADL MOB WITH SBA-CGA. PT COMPLETED TOILETING TASKS WITH SBA. PT COMPLETED HAND HYGIENE WITH SBA. PT COMPLETED SITTING AT EOB WITH SBA-SPV. [phone] MILIND ANN COTA
== END 2020-10-13 13:31 | disposition home or self-care (01) | DRG 308 ==
LOC: D.ER 20:31 → OBSVTIME 23:14 → D.M2 23:14 → D.ER 10-06 00:27 → D.M2 10-06 00:27 → OBSVTIME 10-06 00:27 → D.M2 10-06 00:27
PROVIDERS: Emergency Medicine; ADMIT Emergency Medicine; ATTEND Emergency Medicine
DX: I48.91 Unspecified atrial fibrillation (principal); J96.01 Acute respiratory failure with hypoxia; J45.901 Unspecified asthma with (acute) exacerbation; I25.10 Atherosclerotic heart disease of native coronary artery without angina pectoris; E78.5 Hyperlipidemia, unspecified; J44.9 Chronic obstructive pulmonary disease, unspecified; M19.90 Unspecified osteoarthritis, unspecified site; K21.9 Gastro-esophageal reflux disease without esophagitis; N40.0 Benign prostatic hyperplasia without lower urinary tract symptoms; J20.9 Acute bronchitis, unspecified; D64.9 Anemia, unspecified; I07.1 Rheumatic tricuspid insufficiency; R91.8 Other nonspecific abnormal finding of lung field; F41.9 Anxiety disorder, unspecified; G62.9 Polyneuropathy, unspecified; G43.909 Migraine, unspecified, not intractable, without status migrainosus; Z79.02 Long term (current) use of antithrombotics/antiplatelets; Z86.16 Personal history of COVID-19; R55 Syncope and collapse

== ENCOUNTER 2020-11-01 11:30 | Day surgery (SDC) | payer MEDICARE ==
[~2020-11-01] VITALS: Ht 177.8 cm; Wt 81.7 kg
--- NOTE | ~2020-11-01 | HEMODYNAMI ---
PATIENT:MOHINI TAVERAS MEDICAL RECORD: [id number] : 50 LOCATION:[facility] ADMISSION DATE: 11/01/20 Generatedon:115:48 Patient name: MOHINI TAVERAS Patient #: [id number] SSN: [id number] : 1950 Date of study: 11/01/2020 Page: Of Hemodynamic Procedure Report Patient Data Patient Demographics Procedure consent was obtained First Name: MOHINI Gender: Male Last Name: DARCY : 1950 Middle Initial: YAMILETH Age: 70 year(s) Patient #: [id number] Race: Black SSN: [id number] Additional ID: [id number] Contact details [address]: [address] [place] [address] State: [place] City: [place] Zip code: [address] Past Medical History History of disease Date Diagnosis Comments CAD Allergies: No known allergies Admission Admission Data Admission Date: 11/01/2020 Admission Time: 11:30 Procedure Procedure Types Cath Procedure Diagnostic Procedure PPM/ICD PPM Dual Implant Sedation Charges Moderate Sedation 40-54 minutes Procedure Description Procedure Date Procedure Date: 11/01/2020 Procedure Start Time: 15:01 Procedure Staff Name Function Fidel Ballesteros MD Performing Physician Trace Barajas MD Assisting physician Belkys Moya RT Scrub Wood Drake RN Nurse [place] García RT Monitor Procedure Data Cath Procedure Fluoroscopy Diagnostic fluoroscopy Total fluoroscopy Time: 3.4 time: 3.4 min min Diagnostic fluoroscopy Total fluoroscopy dose: dose: 49.43 mGy 49.43 mGy Estimated blood loss: 5 ml Procedure Complications No complications Procedure Medications Medication Administration Route Dosage 0.9% NaCl I.V. 25 ml/hr Lidocaine 1% added to field 20 Ancef (1Gm/50ml NS) I.V.P.B 1 g Ancef Irrigation Topical 1 g (1gm/500ml NS) Zofran I.V. 4 mg Versed I.V. 1 mg Dilaudid I.V. 1 mg Versed I.V. 1 mg Dilaudid I.V. 1 mg Dilaudid I.V. 2 mg Versed I.V. 1 mg Versed I.V. 1 mg Oxygen etCO2 Nasal cannula 2 l/min Hemodynamics Rest Heart Rate: 68 (bpm) Snapshots Pre Cath Intra NCS Post Cath Vital Signs Time Heart Resp SPO2 NIBP (mmHg) Rhythm Pain Sedation Rate (ipm) (%) Status Level (bpm) 14:51:15 69 12 99 142/91(122) NSR (Missing) 10(A) 14:55:23 72 12 99 143/87(118) NSR (Missing) 10(A) 14:59:31 72 12 100 141/91(123) NSR (Missing) 10(A) 15:03:43 79 17 97 143/77(120) NSR (Missing) 10(A) 15:07:49 122 32 97 133/92(114) NSR (Missing) 10(A) 15:11:55 155 15 98 127/80(100) NSR (Missing) 10(A) 15:15:56 81 14 97 126/90(107) NSR (Missing) 10(A) 15:20:02 85 12 96 121/79(100) NSR (Missing) 9(A) 15:24:08 76 10 96 110/74(88) NSR (Missing) 9(A) 15:28:10 92 13 96 119/73(93) NSR (Missing) 9(A) 15:32:12 72 12 96 105/80(95) NSR (Missing) 9(A) 15:36:56 80 12 96 115/86(103) NSR (Missing) 9(A) 15:40:54 71 12 97 121/85(108) NSR (Missing) 9(A) 15:44:53 71 10 97 124/91(108) NSR (Missing) 10(A) Medications Time Medication Route Dose Verified Delivered Reason Notes Effectiv eness by by 14:59:28 0.9% NaCl I.V. 25 Fidel Wood used for ml/hr St Henri Drake RN procedure 14:59:41 Lidocaine added 20ml Fidel Wood for local 1% to vial St Henri Drake RN anesthetic field x2 14:59:48 Oxygen etCO2 2 Fidel Wood used for Nasal l/min St Henri Drake jewel grinder cannula 14:59:52 Ancef I.V.P.B 1 g Fidel Wood used for (1Gm/50ml FavianHenri Drake jewel grinder NS) 15:00:01 Ancef Topical 1 g Fidel Wood used for Irrigation FavianHenri Drake jewel grinder (1gm/500ml NS) 15:00:14 Zofran I.V. 4 mg Fidel Wood for nausea St Henri Drake RN 15:00:27 Versed I.V. 1 mg Fidel Wood for FavianHenri Drake RN sedation 15:00:39 Dilaudid I.V. 1 mg Fidel Wood for Favian Vidal RN sedation 15:02:25 Versed I.V. 1 mg Fidel Wood for FavianHenri Drake RN sedation 15:02:28 Dilaudid I.V. 1 mg Fidel Wood for Favian Vidal RN sedation 15:12:10 Dilaudid I.V. 2 mg Fidel Wood for FavianHenri Drake RN sedation 15:14:32 Versed I.V. 1 mg Fidel Wood for FavianHenri Drake RN sedation 15:17:50 Versed I.V. 1 [facility] Procedure Log Time Note 14:29:51 Diagnostic Cath Status : Elective 14:30:32 Procedure Status PPM/ Gen Change/ Lead Revision/ Temp. 14:30:35 Wood Drake RN sent for patient. Start room use. 14:30:36 Time tracking: Regular hours (M-F 7:00 - 5:00) 14:30:40 Plan of Care:Hemodynamics will remain stable., Cardiac rhythm will remain stable., Comfort level will be maintained., Respiratory function will remain adequate., Patient/ family verbilizes understanding of procedure., Procedure tolerated without complication., Recovers from procedure without complications.. 14:42:44 Patient received from Pre/Post Procedure Room to CCL 3 Alert and oriented. Tansferred to table in Supine position. 14:42:47 Signed procedure consent form obtained from patient. 14:42:48 Warm blankets applied, and juan hugger turned on for patient comfort. 14:42:49 Correct patient and procedure confirmed by team. 14:42:49 ECG and BP/O2 sat monitors applied to patient. 14:50:08 Vital chart was started 14:50:11 Full Disclosure recording started 14:50:17 Rhythm: sinus rhythm 14:51:35 Unable to print new H&P. Not yet transcribed:Food Services Director says they are back-logged. 14:51:35 H&P Date Dictated: 11/01/2020 H&P Addendum completed by physician on day of procedure. (MUST COMPLETE FOR ALL OUTPATIENTS), New H&P dictated by physician.. 14:51:39 Pre-procedure instructions explained to patient. 14:51:40 Pre-op teaching completed and patient verbalized understanding. 14:51:41 Family in patients room. 14:51:43 Patient NPO since Midnight. 14:51:56 Patient allergic to No known allergies 14:52:00 Is the patient allergic to Iodine/contrast media? No. 14:52:04 Is patient on blood thinner?No 14:52:11 Patient diabetic? No. 14:52:17 Snore? No 14:52:20 Previous problem with sedation/anesthesia? No \ 14:52:25 Sleep apnea? No 14:52:26 Deviated septum? No 14:52:27 Opens mouth fully? Yes 14:52:28 Sticks out tongue? Yes 14:52:33 Airway obstruction? No ? 14:52:35 Dentures? No ? 14:52:40 Patient pain scale 0/10 ?. 14:52:48 IV patent on arrival in right forearm with 0.9% NaCl at [facility]. 14:52:51 Lab results completed and on chart. 14:53:02 Left chest area was prepped with chlora-prep and draped in sterile fashion 14:53:03 Alarms reviewed by R. N. 14:53:04 Sharps counted by scrub and verified by R.N. 14:53:16 Use device set RSOALVA PPM 14:53:17 2-0 Ticron Multipack ([id number]) opened to sterile field. 14:53:18 3-0 Vicryl Single Pack [id number] opened to sterile field. 14:53:18 5-0 Monocryl PS2 [id number] opened to sterile field. 14:53:19 Cautery Tip Tie Buyer opened to sterile field. 14:53:20 Cautery Pushbutton Pencil opened to sterile field. 14:53:20 Mepilex Dressing ([id number]) opened to sterile field. 14:53:34 Medtronic sales and marketing representative Matthew Turcios present for procedure. 14:53:56 Pre sharps counted by scrub and verified by RN: Sutures: 7; Sponges: 5; Stick needles: 2; Skin needles: 2; Blade: 1; Cautery: 1 14:53:58 Grounding pad site Right thigh. 14:54:00 Grounding pad site free from injury. 14:54:59 Baseline sample Acquired. 14:56:09 Medtronic 4074-52 PPM Lead opened to sterile field. 14:56:10 Medtronic 4574-45 PPM Lead opened to sterile field. 14:56:[address] Generator [id number] opened to sterile field. 14:58:18 Final Timeout: patient, procedure, and site verified with staff and physician. All members of the team are in agreement. 14:58:22 Left chest site verified by team. 14:58:43 Fire Safety Assessment: A--An alcohol-based skin anteseptic being used preoperatively., B--The operative or invasive procedure is being performed above the xiphoid process or in the oropharynx., C--Open oxygen or nitrous oxide is being used. 14:58:47 Physical assessment completed. ASA score P 2 - A patient with mild systemic disease as per Fidel Ballesteros MD. 14:58:51 Sedation plan: IV Moderate Sedation Medication:Versed, Fentanyl 14:59:28 0.9% NaCl 25 ml/hr I.V. was administered by Wood Drake RN; used for procedure; Verbal order read back and verified. 14:59:41 Lidocaine 1% 20ml vial x2 added to field was administered by Wood Drake RN; for local anesthetic; Verbal order read back and verified. 14:59:48 Oxygen 2 l/min etCO2 Nasal cannula was administered by Wood Drake RN; used for procedure; Verbal order read back and verified. 14:59:52 Ancef (1Gm/50ml NS) 1 g I.V.P.B was administered by Wood Drake RN; used for procedure; Verbal order read back and verified. 15:00:01 Ancef Irrigation (1gm/500ml NS) 1 g Topical was administered by Wood Drake RN; used for procedure; Verbal order read back and verified. 15:00:14 Zofran 4 mg I.V. was administered by Wood Drake RN; for nausea; Verbal order read back and verified. 15:00:27 Versed 1 mg I.V. was administered by Wood Drake RN; for sedation; Verbal order read back and verified. 15:00:39 Dilaudid 1 mg I.V. was administered by Wood Drake RN; for sedation; Verbal order read back and verified. 15:01:41 Lidocaine 2% was administered to left subclavicular area by Trace Barajas MD . 15:02:25 Versed 1 mg I.V. was administered by Wood Drake RN; for sedation; Verbal order read back and verified. 15:02:28 Dilaudid 1 mg I.V. was administered by Wood Drake RN; for sedation; Verbal order read back and verified. 15:04:03 Incision made to left subclavicular area. 15:05:46 Generator pocket made/opened. 15:12:10 Dilaudid 2 mg I.V. was administered by Wood Drake RN; for sedation; Verbal order read back and verified. 15:14:32 Versed 1 mg I.V. was administered by Wood Drake RN; for sedation; Verbal order read back and verified. 15:17:50 Versed 1 mg I.V. was administered by Wood Drake RN; for sedation; Verbal order read back and verified. 15:26:14 Left subclavian vein accessed with 7Fr Peel Away Sheath. 15:27:14 Ventricular lead inserted and advanced. 15:27:18 Left subclavian vein accessed with 7Fr Peel Away Sheath. 15:27:19 Atrial lead inserted and advanced. 15:35:21 Ventricular lead positioned. 15:35:23 Atrial lead positioned. 15:35:27 Ventricular lead tested. 15:35:32 Atrial lead tested. 15:35:35 Peel-a-way sheath was split and removed. 15:35:36 Peel-a-way sheath was split and removed. 15:35:58 Ventricular lead attachment was completed with 2-0 ticron. 15:36:03 Ventricular lead attachment was completed with 2-0 ticron. 15:36:20 PPM Dual was attached to lead(s) and inserted into pocket. 15:36:29 Device pocket was irrigated with Ancef. 15:37:13 Generator was sutured in place with 2-0 ticron. 15:37:46 Parameters-- Generator: Mode: AAIR<=>DDDR. Lower Rate: 60bpm. Upper Rate: 130bpm. 15:38:23 Parameters--Ventricular P/R Wave: 12.3mV. Current: 0.2mA; Threshold: 0.3V; Impedence: 1516OHMS. 15:38:51 Parameters--Atrial P/R Wave: 4.8mV. Current: 2mA; Threshold: 0.3V; Impedence: 679OHMS. 15:39:06 Atrial lead attachment was completed with 2-0 ticron. 15:40:56 Subcutaneous closure was completed with 3-0 vicryl. 15:43:42 Procedure ended.(Physican Out) 15:44:17 Lt Chest incision was dressed with Mepilex dressing. 15:44:24 Fluoroscopy time 03.40 minutes. 15:44:30 Fluoroscopy dose: 49.43 mGy 15:44:30 Flurop Dose total: 49.43 15:44:38 Dose Area Product 700 mGy/cm. 15:44:50 Insertion/operative site no bleeding no hematoma. 15:45:01 Post Chest area:stable, clean and dry 15:45:05 Post-procedure physical assessment completed. ASA score P 2 - A patient with mild systemic disease as per Fidel Ballesteros MD. 15:45:09 Post procedure rhythm: unchanged. 15:45:12 Estimated blood loss: 5 ml 15:45:14 Post procedure instruction explained to patient.Patient verbalizes understanding. 15:45:14 Patient needs reinforcement of post procedure teaching. 15:45:49 Procedure type changed to Cath procedure, Diagnostic procedure, PPM/ICD, PPM Dual Implant, Sedation Charges, Moderate Sedation 40-54 minutes 15:46:09 Procedure and supply charges have been captured, reviewed, submitted and are correct. 15:46:13 Procedure Complication : No complications 15:46:25 Report given to Pre/Post Procedure Room. 15:46:29 Operative report dictated upon procedure completion. 15:46:30 See physician's report for complete and final results. 15:46:48 Patient transfered to Pre/Post Procedure Room with Stretcher. 15:47:05 Vital chart was stopped 15:47:09 End room use (Document Last) 15:47:56 End room use (Document Last) 15:48:07 Geovanna King RT(R) was relieved by Mainesurjit García RT(R) as monitoring person 15:48:07 End room use (Document Last) 15:48:22 End room use (Document Last) 15:48:30 [place] García RT(R) was relieved by [place] Counts RT(R) as monitoring person 15:48:30 End room use (Document Last) Device Usage Item Name Manufacture Quantity Catalog Hospital Part Current Minima l Lot# / Number Charge Number Stock Stock Serial# Code 2-0 Ticron Ethicon 9 [id number] [id number] 46043 227909 5 Multipack ([id number]) 3-0 Vicryl Ethicon 1 [id number] 787756 139322 306028 5 Single Pack [id number] 5-0 Monocryl Ethicon 1 Y495G 474157 473112 822726 5 PS2 Y495G Cautery Tip Microtek 1 [id number] 864541 420833 443628 5 Tie [employer] Cautery Microtek 1 [id number] 195937 33905 869677 5 Pushbutton [employer] Pencil Mepilex Cardinal 1 676203 886305 223386 833892 5 Dressing Health ([id number]) Medtronic Medtronic 1 4074-52 246167 885246 568702 5 4074-52 PPM Lead Medtronic Medtronic 1 4574-45 238415 870210 518597 5 4574-45 PPM Lead Medtronic Medtronic 1 [id number] 311778 [id number] [id number] [address] Generator [id number] Signature Audit Kelley Stage Time Signature Unsigned Intra-Procedure 11/01/2020 Wood Drake RN 3:47:56 PM Intra-Procedure 11/01/2020 [place] 3:48:22 PM Counts RT(R) Intra-Procedure 11/01/2020 Fidel Marks 3:48:51 PM Henri DUARTE [facility] [address] [place] [address]
--- NOTE | ~2020-11-01 | OP ---
PATIENT NAME: MOHINI TAVERAS MEDICAL RECORD: [id number] :50 LOCATION:D.CAT ADMISSION DATE: SURGEON: JANNETH BLACKWELL MD DATE OF OPERATION: 11/01/2020 PREOPERATIVE DIAGNOSIS: Tachybrady syndrome. POSTOPERATIVE DIAGNOSIS: Tachybrady syndrome. PROCEDURE: 1. Left subclavian vein dual lead pacemaker placement. 2. Fluoroscopic interpretation. SURGEON: Dr. Blackwell. COSURGEON: Dr. Gomez. REPORT OF OPERATION: The patient's left chest was prepped and draped in sterile fashion, 30 mL of 1% lidocaine with epinephrine was infused into the surrounding tissues. A transverse skin incision was made on the left superior lateral chest and a subcutaneous pouch was made over the pectoral fascia. [place] were used to cannulate the left subclavian vein. Guidewires were advanced with ease. Fluoroscopy was used to note that the wires were in good position in the venous system. Dilator trocar devices were placed over the wires and the wires and dilators were removed. The leads were advanced through the trocars until they rested in the superior vena cava. At this point, Dr. Gomez positioned the leads appropriately in the atrium and ventricle. Once the leads were noted to be in good position and functioning appropriately, then they were sutured in place with 2-0 Ti-Cron. The leads were affixed to the pacemaker, which was placed into the subcutaneous pouch and sutured to the pectoral fascia with single interrupted 2-0 Ti-Cron. The wound bed was irrigated out with antibiotic solution. The subcutaneous tissues were reapproximated with interrupted 3-0 Vicryl and the skin was closed with running subcutaneous 5-0 Monocryl. COMPLICATIONS: None. CONDITION: Stable. ANESTHESIA: Local MAC. BLOOD LOSS: Minimal. TRANSINT:[id number] Voice Confirmation ID: [id number] DOCUMENT ID: [id number] JANNETH BLACKWELL MD CC: [id number] DICTATION DATE: 11/01/20 1542 WOODYARD CRANE OPERATOR: 11/02/20 0333 [facility] 11/01/20 [facility] [address] [place] [address]
[~2020-11-01 11:30] MED LIST changes: +ADOXA100 MG PO; +BACTRIM DS TAB1 EAC1 PO; +BETAPACE 80 MG80 MG PO; +BROVANA15 MCG/2 M INH; +CEPHALEXIN500 M1 PO; +CLONIDINE HCL0.1 MG PO; +JANTOVEN5 MG PO; +MS CONTIN15 MG PO; +MULTAQ400 MG PO; +PREDNISONE20 MG PO; +TESSALON PERLE100 MG PO; +XANAX0.5 MG PO; +ZANAFLEX4 MG PO
[2020-11-01] MEDS ORDERED: MIRAPEX0.25 MG PO (12:12)
[2020-11-01] MEDS ORDERED: FENTANYL1 EAC6 TRANSDERM (12:12)
[2020-11-01] MEDS ORDERED: AMBIEN10 MG PO (12:13)
[2020-11-01] MEDS ORDERED: IMITREX100 MG PO (12:14)
[2020-11-01 12:19] VITALS: BP 111/83; Ht 177.8 cm; Wt 81.7 kg
[2020-11-01 12:55] LABS: HEMOGLOBIN 13.9 g/dL (13.5-17.5); MCH 30.1 pg (26.0-34.0); MCHC 33.2 g/dL (31.0-37.0); MCV 90.7 fL (80.0-100.0); RBC 4.63 10x6/uL (4.20-6.10); RDW 17.6 % (11.5-14.5); WBC 9.7 10x3/uL (4.8-10.8)
[2020-11-01 13:22] LABS: ANION GAP 12.3 mmol/L (8-16); CALCIUM 9.5 mg/dL (8.5-10.1); CARBON DIOXIDE 23.4 mmol/L (21.0-32.0); CREATININE - SERUM 1.2 mg/dL (0.6-1.3); POTASSIUM - SERUM 3.7 mmol/L (3.5-5.1)
[2020-11-01 14:11] LABS: INR 1.44 (0.85-1.17); PROTIME 16.3 SECONDS (11.6-15.0)
[2020-11-01 14:12] LABS: APTT 36.7 SECONDS (22.8-39.4)
--- NOTE | 2020-11-01 15:59 | NUR ---
PT REC'D TO CATH RECOVERY ROOM 7 VIA STRETCHER. L ARM IN SLING, AT BS. SEE PIG MACHINE SUPERVISOR FLOWSHEETS. ALARMS ON AND C/L IN REACH.
--- NOTE | 2020-11-01 16:15 | NUR ---
PT SITTING UP IN BED. CM - SR, HR 82, NO ECTOPY NOTED. VSS. L CHEST DSG C/D/I, NO REDNESS OR DRAINAGE NOTED. GIVEN COFFEE PER REQUEST. ALARMS ON AND C/L IN REACH.
--- NOTE | 2020-11-01 16:41 | NUR ---
VSS. PT GIVEN SANDWICH AND WATER PER REQUEST. L CHEST SITE DSG C/D/I. PT DENIES PAIN OR NEEDS. ALARMS ON AND C/L IN REACH.
--- NOTE | 2020-11-01 16:43 | NUR ---
PCXR RESULTS WNL.
--- NOTE | 2020-11-01 16:50 | NUR ---
L CHEST PPM SITE DSG C/D/I, NO REDNESS, DRAINAGE OR SWELLING NOTED, CM - NSR, NO ECTOPY NOTED. PT GIVEN PUDDING AND COLA PER REQUEST. VSS. ALARMS ON AND C/L IN REACH.
--- NOTE | 2020-11-01 17:05 | NUR ---
ALL DISCHARGE INSTRUCTIONS REVIEWED WITH PT AND HIS , INCLUDING RESTRICTIONS, MEDS AND F/U APPT. BOTH VERBALIZE UNDERSTANDING. PIV D/C'D INTACT, DSG APPLIED. PT ASSISTED BY WITH DRESSING AND KEEPING L ARM DOWN AND IN SLING.
--- NOTE | 2020-11-01 17:14 | NUR ---
VERIFIED WITH DR. MONTE PT TO RESTART COUMADIN AND PLAVIX TOMORROW - WRITTEN ON D/C INSTRUCTIONS.
--- NOTE | 2020-11-01 17:25 | NUR ---
PT D/C'D VIA WC TO PRIVATE VEHICLE WITH ALL PAPERWORK AND BELONGINGS.
--- NOTE | 2020-11-03 08:19 | OP ---
PATIENT NAME: MICHA TAVERAS MEDICAL RECORD: [id number] :50 LOCATION:D.CAT ADMISSION DATE: SURGEON: TANVIR MONTE MD DATE OF OPERATION: 11/01/2020 PROCEDURE: Permanent pacemaker placement, lead portion. INDICATION: Tachybrady with sick sinus. SURGEON: Trace Barajas MD DESCRIPTION OF PROCEDURE: After left subclavian vein was cannulated via modified Seldinger technique via Dr. Barajas first under fluoroscopic guidance, I placed the RV lead in the RV apex after adequate thresholds and R waves were obtained, Then, under fluoroscopic guidance, again placed the right atrial lead and right atrial appendage without difficulty. After adequate P waves and thresholds were obtained, leads were attached to the appropriate generator and pocket was closed with Dr. Barajas. IMPRESSION: Successful lead portion of permanent pacemaker placement for Micha Taveras. ESTIMATED BLOOD LOSS: Minimal. To the floor, stable. COMPLICATIONS: None. TRANSINT:[id number] Voice Confirmation ID: [id number] DOCUMENT ID: [id number] TANVIR MONTE MD at 0819 CC: [id number] DICTATION DATE: 11/01/20 1537 CHOIR LEADER: 11/02/20 0332 [facility] 11/01/20 [facility] [address] [place] [address]
--- NOTE | 2020-11-03 08:19 | HP ---
PATIENT: MOHINI TAVERAS MEDICAL RECORD: [id number] ACCOUNT: [id number] LOCATION:VU : 50 ADMISSION DATE: 11/01/20 PCP: RUFUS MURILLO MD HISTORY AND PHYSICAL EXAMINATION HISTORY OF PRESENT ILLNESS: This is a 70-year-old gentleman seen in the office initially with tachycardia, underwent event monitoring. This actually confirmed tachycardia; however, he was additionally found to have significant bradyarrhythmias as well as his SVT consistent with sick sinus syndrome, being brought forth for permanent pacemaker placement. PAST MEDICAL HISTORY: Includes: 1. History of hypertension. 2. Hyperlipidemia. 3. Obstructive pulmonary disease. ALLERGIES: None known. PHYSICAL EXAMINATION: GENERAL: Pleasant. No acute distress. Appears stated age. HEENT: Normocephalic, atraumatic. NECK: No JVD or bruit. HEART: Regular. II/ systolic ejection murmur. LUNGS: Good air excursion. ABDOMEN: Soft and nontender. EXTREMITIES: Pulses 2+. No edema. 21-day monitor confirms sick sinus syndrome with tachybrady. Plan for permanent pacemaker placement. TRANSINT:[id number] Voice Confirmation ID: [id number] DOCUMENT ID: [id number] TANVIR MONTE MD at 0819 CC: [id number] DICTATION DATE: 11/01/20 140 SENIOR REACTOR OPERATOR: 11/02/20 0307 [facility] 11/01/20 [place] [id number] [place] [id number]
== END 2020-11-01 17:25 | disposition home or self-care (01) ==
LOC: D.CATH 11:30
PROVIDERS: ATTEND Internal Medicine Interventional Cardiology
DX: I49.5 Sick sinus syndrome (principal); I10 Essential (primary) hypertension; E78.5 Hyperlipidemia, unspecified; J44.9 Chronic obstructive pulmonary disease, unspecified